=== PATIENT | male | born 1935 | race Caucasian/White ===

== ENCOUNTER 2017-03-08 02:15 | Inpatient (IN) | payer MEDICARE, BC ==
[~2017-03-08] VITALS: Ht 172.7 cm; Wt 80.5 kg
[~2017-03-08 02:15] MED LIST: ALBU90OI6 INH; AMIO200 PO; AMLO5 PO; ASPI81CH; ASPI81CH PO; ATOR10; Amoxicillin500 MG PO; CYCL10 PO; Cephalexin500 MG PO; Cipro500 MG PO; GUAI600T33 PO; HYDACE5 PO; HYDPAM50 PO; HYDR1TAB94 PO; INDO25 PO; Inderal 20 mg T20 MG PO; Ipratr-Albuterol3 ML INH; LAVAP17G PO; LEVO750 PO; LISI20 PO; LOVA20 PO; LOVA40 PO; MED FOR BP; Metoprolol Tart25 MG PO; NITR.4SL SL; NITR.6SL SL; Nitroglycerin0.4 MG SL; OMEP20ER PO; OXYACE5T PO; PANT40 PO; PRED10 PO; PRED20 PO; Prednisone20 MG PO; Roxicodone5 MG PO; SUCR1 PO; Zithromax250 MG PO; Zofran Odt4 MG SL; [UNRECOGNIZED DRUG - REMARK]
[2017-03-08 02:45] LABS: BASOPHILS ABSOLUTE AUTO 0.05 K/mm3 (0.00-0.23); BASOPHILS PERCENT AUTO 0 % (0-2); EOSINOPHILS ABSOLUTE AUTO 0.24 K/mm3 (0.00-0.68); EOSINOPHILS PERCENT AUTO 1 % (0-6); Hematocrit 36.3 % (37.0-53.0); Hemoglobin 11.7 g/dL (13.5-17.5); IMMATURE GRAN ABSOLUTE AUTO 0.06 K/mm3 (0.00-0.10); IMMATURE GRAN PERCENT AUTO 0 % (0-1); LYMPHOCYTES ABSOLUTE AUTO 3.08 K/mm3 (0.84-5.20); LYMPHOCYTES PERCENT AUTO 17 % (21-46); MONOCYTES ABSOLUTE AUTO 0.85 K/mm3 (0.16-1.47); MONOCYTES PERCENT AUTO 5 % (4-13); Mean Corpuscular HGB 28.1 pg (26.0-34.0); Mean Corpuscular HGB Conc 32.2 g/dL (31.5-36.5); Mean Corpuscular Volume 87 fL (80-100); Mean Platelet Volume 10.1 fL (9.1-12.4); NEUTROPHILS ABSOLUTE AUTO 14.24 K/mm3 (1.96-9.15); NEUTROPHILS PERCENT AUTO 77 % (41-73); Platelet Count 324 K/mm3 (150-400); RDW Coefficient Variation 14.9 % (11.7-14.2); RDW Standard Deviation 47.7 fL (35.1-46.3); Red Blood Cell Count 4.17 M/mm3 (4.30-5.90); White Blood Cell Count 18.52 K/mm3 (4.00-11.30)
[2017-03-08 03:06] LABS: Alanine Aminotransfer (ALT/SGP 33 U/L (12-78); Albumin/Globulin Ratio 1.1 (0.8-1.8); Alk Phos 126 U/L (50-136); Anion Gap 8 mmol/L (6-16); Aspartate Aminotrans (AST/SGOT 35 U/L (12-37); Bilirubin, Total 0.3 mg/dL (0.1-1.0); Blood Urea Nitrogen 19 mg/dL (8-24); Bun/Creatinine Ratio 18.8 (12.0-20.0); CO2, Blood 24 mmol/L (21-32); Calcium, Blood 8.7 mg/dL (8.5-10.1); Chloride, Blood 108 mmol/L (98-108); Creatinine, Blood 1.01 mg/dL (0.60-1.20); Globulin, Blood 3.8 g/dL (2.2-4.0); Glomerular Filtration Rate >60 (60-); Glucose, Blood 134 mg/dL (70-99); Potassium, Blood 4.1 mmol/L (3.5-5.5); Sodium, Blood 140 mmol/L (136-145); Total Protein, Blood 7.8 g/dL (6.4-8.2); Troponin I <0.015 ng/mL (0.000-0.040)
[2017-03-08 03:18] LABS: Influenza A Negative (NEGATIVE); Influenza B Negative (NEGATIVE)
[2017-03-08 04:12] LABS: PCO2 Arterial 39.5 mmHg (35-45); PO2 Arterial 71.8 mmHg (80-100); pH Blood Arterial 7.39 (7.35-7.45)
[2017-03-10 05:30] LABS: BASOPHILS ABSOLUTE AUTO 0.01 K/mm3 (0.00-0.23); BASOPHILS PERCENT AUTO 0 % (0-2); EOSINOPHILS ABSOLUTE AUTO 0.01 K/mm3 (0.00-0.68); EOSINOPHILS PERCENT AUTO 0 % (0-6); Hematocrit 30.1 % (37.0-53.0); Hemoglobin 9.8 g/dL (13.5-17.5); IMMATURE GRAN ABSOLUTE AUTO 0.07 K/mm3 (0.00-0.10); IMMATURE GRAN PERCENT AUTO 1 % (0-1); LYMPHOCYTES ABSOLUTE AUTO 2.27 K/mm3 (0.84-5.20); LYMPHOCYTES PERCENT AUTO 15 % (21-46); MONOCYTES ABSOLUTE AUTO 0.88 K/mm3 (0.16-1.47); MONOCYTES PERCENT AUTO 6 % (4-13); Mean Corpuscular HGB Conc 32.6 g/dL (31.5-36.5); Mean Corpuscular Volume 86 fL (80-100); Mean Platelet Volume 10.1 fL (9.1-12.4); NEUTROPHILS ABSOLUTE AUTO 11.47 K/mm3 (1.96-9.15); NEUTROPHILS PERCENT AUTO 78 % (41-73); Platelet Count 259 K/mm3 (150-400); RDW Coefficient Variation 15.2 % (11.7-14.2); RDW Standard Deviation 48.1 fL (35.1-46.3); White Blood Cell Count 14.71 K/mm3 (4.00-11.30)
[2017-03-10 06:10] LABS: Calcium, Blood 8.7 mg/dL (8.5-10.1); Creatinine, Blood 1.25 mg/dL (0.60-1.20); Potassium, Blood 4.2 mmol/L (3.5-5.5)
[2017-03-11 05:24] LABS: BASOPHILS ABSOLUTE AUTO 0.01 K/mm3 (0.00-0.23); BASOPHILS PERCENT AUTO 0 % (0-2); EOSINOPHILS PERCENT AUTO 0 % (0-6); Hematocrit 32.6 % (37.0-53.0); Hemoglobin 10.5 g/dL (13.5-17.5); IMMATURE GRAN ABSOLUTE AUTO 0.08 K/mm3 (0.00-0.10); IMMATURE GRAN PERCENT AUTO 1 % (0-1); LYMPHOCYTES ABSOLUTE AUTO 1.18 K/mm3 (0.84-5.20); LYMPHOCYTES PERCENT AUTO 11 % (21-46); MONOCYTES ABSOLUTE AUTO 0.58 K/mm3 (0.16-1.47); MONOCYTES PERCENT AUTO 5 % (4-13); Mean Corpuscular HGB 27.9 pg (26.0-34.0); Mean Corpuscular HGB Conc 32.2 g/dL (31.5-36.5); Mean Corpuscular Volume 87 fL (80-100); Mean Platelet Volume 10.1 fL (9.1-12.4); NEUTROPHILS ABSOLUTE AUTO 9.09 K/mm3 (1.96-9.15); NEUTROPHILS PERCENT AUTO 83 % (41-73); Platelet Count 280 K/mm3 (150-400); Red Blood Cell Count 3.76 M/mm3 (4.30-5.90); White Blood Cell Count 10.94 K/mm3 (4.00-11.30)
[2017-03-11 05:42] LABS: Anion Gap 9 mmol/L (6-16); Blood Urea Nitrogen 26 mg/dL (8-24); CO2, Blood 24 mmol/L (21-32); Calcium, Blood 8.7 mg/dL (8.5-10.1); Chloride, Blood 105 mmol/L (98-108); Creatinine, Blood 1.18 mg/dL (0.60-1.20); Glomerular Filtration Rate >60 (60-); Glucose, Blood 125 mg/dL (70-99); Potassium, Blood 4.3 mmol/L (3.5-5.5); Sodium, Blood 138 mmol/L (136-145)
[2017-03-13] MEDS ORDERED: Acetaminophen325 M1 PO (12:39)
[2017-03-13] MEDS ORDERED: GUAI600T33 PO (12:40)
[2017-03-13] MEDS ORDERED: Ipratr-Albuterol3 ML INH (12:41)
[2017-03-13] MEDS ORDERED: METO5A PO (12:42)
[2017-03-13] MEDS ORDERED: PRED10 PO (12:46)
[2017-03-13] MEDS ORDERED: GAVILAX17 GM PO (12:47)
[2017-03-13] MEDS ORDERED: LEVO750 PO (12:47)
== END 2017-03-13 14:36 | disposition home or self-care (01) | DRG 871 ==
LOC: ER 02:15 → MEDS 04:57 → ENPENDDIS 03-13 10:21 → MEDS 03-13 14:36
PROVIDERS: Emergency Medicine; Hospitalist
DX: A41.9 Sepsis, unspecified organism (principal); J96.01 Acute respiratory failure with hypoxia; J69.0 Pneumonitis due to inhalation of food and vomit; J44.1 Chronic obstructive pulmonary disease with (acute) exacerbation; K21.9 Gastro-esophageal reflux disease without esophagitis; I10 Essential (primary) hypertension; I25.10 Atherosclerotic heart disease of native coronary artery without angina pectoris; Z79.899 Other long term (current) drug therapy; I25.2 Old myocardial infarction; Z95.1 Presence of aortocoronary bypass graft; Z87.891 Personal history of nicotine dependence
CPT/HCPCS: 36415; 36600; 71045; 80048; 80053; 82803; 83605; 83690; 84484; 85025; 87040; 87070; 87205; 87804; 93005; 93010; 94640; 94644; 94760; 94761; 96365; 96375; 99285; J1650; J1956; J2405; J2550; J2930; J7030

== ENCOUNTER 2017-03-24 19:18 | Emergency (ER) | payer MEDICARE, BC ==
[~2017-03-24] VITALS: Ht 172.7 cm; Wt 86.2 kg
[~2017-03-24 19:18] MED LIST changes: +Acetaminophen325 M1 PO; +GAVILAX17 GM PO; +METO5A PO
[2017-03-24 20:37] LABS: BASOPHILS ABSOLUTE AUTO 0.02 K/mm3 (0.00-0.23); BASOPHILS PERCENT AUTO 0 % (0-2); EOSINOPHILS ABSOLUTE AUTO 0.04 K/mm3 (0.00-0.68); EOSINOPHILS PERCENT AUTO 0 % (0-6); Hematocrit 33.7 % (37.0-53.0); Hemoglobin 10.9 g/dL (13.5-17.5); IMMATURE GRAN ABSOLUTE AUTO 0.05 K/mm3 (0.00-0.10); IMMATURE GRAN PERCENT AUTO 1 % (0-1); LYMPHOCYTES ABSOLUTE AUTO 1.26 K/mm3 (0.84-5.20); LYMPHOCYTES PERCENT AUTO 13 % (21-46); MONOCYTES ABSOLUTE AUTO 1.54 K/mm3 (0.16-1.47); MONOCYTES PERCENT AUTO 16 % (4-13); Mean Corpuscular HGB 27.9 pg (26.0-34.0); Mean Corpuscular HGB Conc 32.3 g/dL (31.5-36.5); Mean Corpuscular Volume 86 fL (80-100); NEUTROPHILS ABSOLUTE AUTO 6.81 K/mm3 (1.96-9.15); NEUTROPHILS PERCENT AUTO 70 % (41-73); RDW Coefficient Variation 15.6 % (11.7-14.2); White Blood Cell Count 9.72 K/mm3 (4.00-11.30)
[2017-03-24 20:39] LABS: Mean Platelet Volume 10.8 fL (9.1-12.4); Platelet Count 219 K/mm3 (150-400)
[2017-03-24 20:40] LABS: International Normalized Ratio 1.03; Prothrombin Time Results 10.7 Sec (9.7-11.5)
[2017-03-24 20:49] LABS: Alanine Aminotransfer (ALT/SGP 26 U/L (12-78); Albumin, Blood 3.6 g/dL (3.4-5.0); Albumin/Globulin Ratio 1.1 (0.8-1.8); Alk Phos 82 U/L (50-136); Anion Gap 7 mmol/L (6-16); Aspartate Aminotrans (AST/SGOT 21 U/L (12-37); Bilirubin, Total 0.3 mg/dL (0.1-1.0); Blood Urea Nitrogen 18 mg/dL (8-24); Bun/Creatinine Ratio 16.7 (12.0-20.0); CO2, Blood 26 mmol/L (21-32); Calcium, Blood 8.7 mg/dL (8.5-10.1); Chloride, Blood 107 mmol/L (98-108); Creatinine, Blood 1.08 mg/dL (0.60-1.20); Globulin, Blood 3.4 g/dL (2.2-4.0); Glomerular Filtration Rate >60 (60-); Glucose, Blood 82 mg/dL (70-99); Potassium, Blood 4.1 mmol/L (3.5-5.5); Sodium, Blood 140 mmol/L (136-145); Troponin I <0.015 ng/mL (0.000-0.040)
[2017-03-25 00:45] LABS: Influenza A Negative (NEGATIVE); Influenza B Negative (NEGATIVE)
== END 2017-03-25 01:24 | disposition home or self-care (01) ==
LOC: ER 19:18
PROVIDERS: Emergency Medicine
DX: R06.02 Shortness of breath (principal); I25.10 Atherosclerotic heart disease of native coronary artery without angina pectoris; J44.9 Chronic obstructive pulmonary disease, unspecified; K21.9 Gastro-esophageal reflux disease without esophagitis; I10 Essential (primary) hypertension; Z79.899 Other long term (current) drug therapy; Z79.52 Long term (current) use of systemic steroids; Z90.49 Acquired absence of other specified parts of digestive tract; Z95.1 Presence of aortocoronary bypass graft; Z87.891 Personal history of nicotine dependence
CPT/HCPCS: 36415; 71046; 80053; 84484; 85025; 85610; 87804; 93005; 93010; 99284

== ENCOUNTER 2017-03-25 09:48 | Observation (INO) | payer MEDICARE, BC ==
[~2017-03-25] VITALS: Ht 172.7 cm; Wt 82.9 kg
[2017-03-25 11:47] LABS: Troponin I <0.015 ng/mL (0.000-0.040)
[2017-03-25 12:09] LABS: BASOPHILS ABSOLUTE AUTO 0.02 K/mm3 (0.00-0.23); BASOPHILS PERCENT AUTO 0 % (0-2); EOSINOPHILS ABSOLUTE AUTO 0.01 K/mm3 (0.00-0.68); EOSINOPHILS PERCENT AUTO 0 % (0-6); Hemoglobin 11.3 g/dL (13.5-17.5); IMMATURE GRAN ABSOLUTE AUTO 0.04 K/mm3 (0.00-0.10); IMMATURE GRAN PERCENT AUTO 1 % (0-1); LYMPHOCYTES ABSOLUTE AUTO 0.97 K/mm3 (0.84-5.20); LYMPHOCYTES PERCENT AUTO 13 % (21-46); MONOCYTES ABSOLUTE AUTO 1.89 K/mm3 (0.16-1.47); MONOCYTES PERCENT AUTO 26 % (4-13); Mean Corpuscular HGB Conc 32.3 g/dL (31.5-36.5); Mean Corpuscular Volume 87 fL (80-100); NEUTROPHILS PERCENT AUTO 60 % (41-73); Platelet Count 240 K/mm3 (150-400); RDW Coefficient Variation 15.6 % (11.7-14.2); RDW Standard Deviation 49.4 fL (35.1-46.3); Red Blood Cell Count 4.03 M/mm3 (4.30-5.90); White Blood Cell Count 7.23 K/mm3 (4.00-11.30)
[2017-03-25 12:17] LABS: Alanine Aminotransfer (ALT/SGP 37 U/L (12-78); Albumin, Blood 3.6 g/dL (3.4-5.0); Alk Phos 85 U/L (50-136); Aspartate Aminotrans (AST/SGOT 30 U/L (12-37); Bilirubin, Total 0.4 mg/dL (0.1-1.0); Blood Urea Nitrogen 17 mg/dL (8-24); Bun/Creatinine Ratio 13.9 (12.0-20.0); CO2, Blood 23 mmol/L (21-32); Creatinine, Blood 1.22 mg/dL (0.60-1.20); Globulin, Blood 3.7 g/dL (2.2-4.0); Glomerular Filtration Rate >60 (60-); Glucose, Blood 79 mg/dL (70-99); Total Protein, Blood 7.3 g/dL (6.4-8.2)
[2017-03-25 12:27] LABS: Anion Gap 11 mmol/L (6-16); Calcium, Blood 8.5 mg/dL (8.5-10.1); Chloride, Blood 105 mmol/L (98-108); Potassium, Blood 4.4 mmol/L (3.5-5.5); Sodium, Blood 139 mmol/L (136-145)
[2017-03-25 13:01] LABS: Influenza A Negative (NEGATIVE); Influenza B Negative (NEGATIVE)
[2017-03-25 13:19] LABS: Source, Urine Voided
[2017-03-25 13:23] LABS: Appearance, Urine Clear (Clear); Bilirubin, Urine Neg (Neg); Blood, Urine Neg (Neg); Color, Urine Yellow (P-Yellow); Glucose Qualitative, Urine Neg (Neg); Ketones, Urine Neg (Neg); Leukocyte Esterase, Urine Neg (Neg); Nitrite, Urine Neg (Neg); Protein, Urine Neg (Neg); Urobilinogen, Urine NORM (Normal)
[2017-03-26 05:45] LABS: Anion Gap 8 mmol/L (6-16); Blood Urea Nitrogen 17 mg/dL (8-24); CO2, Blood 24 mmol/L (21-32); Calcium, Blood 7.6 mg/dL (8.5-10.1); Chloride, Blood 105 mmol/L (98-108); Creatinine, Blood 1.06 mg/dL (0.60-1.20); Glomerular Filtration Rate >60 (60-); Glucose, Blood 80 mg/dL (70-99); Sodium, Blood 137 mmol/L (136-145)
[2017-03-28 05:05] LABS: BASOPHILS PERCENT AUTO 0 % (0-2); EOSINOPHILS PERCENT AUTO 0 % (0-6); Hematocrit 30.4 % (37.0-53.0); Hemoglobin 9.9 g/dL (13.5-17.5); IMMATURE GRAN ABSOLUTE AUTO 0.02 K/mm3 (0.00-0.10); IMMATURE GRAN PERCENT AUTO 0 % (0-1); LYMPHOCYTES ABSOLUTE AUTO 0.87 K/mm3 (0.84-5.20); LYMPHOCYTES PERCENT AUTO 12 % (21-46); MONOCYTES ABSOLUTE AUTO 0.52 K/mm3 (0.16-1.47); MONOCYTES PERCENT AUTO 7 % (4-13); Mean Corpuscular HGB 28.4 pg (26.0-34.0); Mean Corpuscular HGB Conc 32.6 g/dL (31.5-36.5); Mean Corpuscular Volume 87 fL (80-100); Mean Platelet Volume 9.9 fL (9.1-12.4); NEUTROPHILS ABSOLUTE AUTO 5.73 K/mm3 (1.96-9.15); NEUTROPHILS PERCENT AUTO 80 % (41-73); Platelet Count 228 K/mm3 (150-400); RDW Coefficient Variation 15.1 % (11.7-14.2); RDW Standard Deviation 48.3 fL (35.1-46.3); Red Blood Cell Count 3.49 M/mm3 (4.30-5.90); White Blood Cell Count 7.14 K/mm3 (4.00-11.30)
[2017-03-28 05:26] LABS: Anion Gap 8 mmol/L (6-16); Blood Urea Nitrogen 22 mg/dL (8-24); CO2, Blood 25 mmol/L (21-32); Calcium, Blood 8.1 mg/dL (8.5-10.1); Chloride, Blood 102 mmol/L (98-108); Creatinine, Blood 0.96 mg/dL (0.60-1.20); Glomerular Filtration Rate >60 (60-); Glucose, Blood 101 mg/dL (70-99); Potassium, Blood 4.2 mmol/L (3.5-5.5); Sodium, Blood 135 mmol/L (136-145)
[2017-03-28] MEDS ORDERED: BENZ100A PO (09:01)
[2017-03-28] MEDS ORDERED: ACIDOPHILUS1 EAC1 PO (09:02)
[2017-03-28] MEDS ORDERED: OSEL75CA PO (09:02)
[2017-03-28] MEDS ORDERED: QNASL8.7 GM INH (09:04)
[2017-03-28] MEDS ORDERED: AZIT250 PO (09:07)
== END 2017-03-28 11:52 | disposition home or self-care (01) ==
LOC: ER 09:48 → MEDS 09:49 → ENPENDDIS 03-28 07:30 → MEDS 03-28 11:52
PROVIDERS: Emergency Medicine; Internal Medicine
DX: J96.01 Acute respiratory failure with hypoxia (principal); J44.9 Chronic obstructive pulmonary disease, unspecified; R11.2 Nausea with vomiting, unspecified; I25.10 Atherosclerotic heart disease of native coronary artery without angina pectoris; K21.9 Gastro-esophageal reflux disease without esophagitis; I10 Essential (primary) hypertension; B34.9 Viral infection, unspecified; E78.5 Hyperlipidemia, unspecified; I25.2 Old myocardial infarction; K22.2 Esophageal obstruction; Z90.49 Acquired absence of other specified parts of digestive tract; Z98.890 Other specified postprocedural states; Z87.891 Personal history of nicotine dependence; Z79.899 Other long term (current) drug therapy; Z87.01 Personal history of pneumonia (recurrent)
CPT/HCPCS: 36415; 71046; 80048; 80053; 81003; 83605; 83690; 84484; 85025; 87040; 87070; 87205; 87804; 93005; 93010; 94640; 94760; 96361; 96372; 96374; 96376; 99285; G0378; J1650; J2405; J7030; J7120

== ENCOUNTER 2018-03-01 08:37 | Day surgery (SDC) | payer MEDICARE, BC ==
[~2018-03-01] VITALS: Ht 175.3 cm; Wt 83.2 kg
[~2018-03-01 08:37] MED LIST changes: +ACIDOPHILUS1 EAC1 PO; +AZIT250 PO; +Aspirin EC81 MG; +Aspirin EC81 MG PO; +BENZ100A PO; +OSEL75CA PO; +QNASL8.7 GM INH
--- NOTE | 2018-03-01 11:01 | NUR ---
03/01/18 1100 Nita Oscar RN UPDATED PT REGARDING THE DELAY IN HIS CASE. RN OFFERRED ADDITIONAL BLANKETS. CALL LIGHT IN REACH.
== END 2018-03-01 13:29 | disposition home or self-care (01) ==
LOC: ORSCSDS 08:37
PROVIDERS: Internal Medicine Gastroenterology
PROC: 0DB68ZX Excision of Stomach, Via Natural or Artificial Opening Endoscopic, Diagnostic (ICD-10-PCS; principal; 2018-03-01 10:30)
PROC: 0DB58ZX Excision of Esophagus, Via Natural or Artificial Opening Endoscopic, Diagnostic (ICD-10-PCS; principal; 2018-03-01 10:30)
PROC: 0DB98ZX Excision of Duodenum, Via Natural or Artificial Opening Endoscopic, Diagnostic (ICD-10-PCS; principal; 2018-03-01 10:30)
DX: K22.70 Barrett's esophagus without dysplasia (principal); R10.9 Unspecified abdominal pain; Z87.19 Personal history of other diseases of the digestive system; K44.9 Diaphragmatic hernia without obstruction or gangrene; E78.5 Hyperlipidemia, unspecified; R11.0 Nausea; R10.33 Periumbilical pain; Z87.11 Personal history of peptic ulcer disease; Z87.891 Personal history of nicotine dependence; I10 Essential (primary) hypertension; Z79.82 Long term (current) use of aspirin; Z79.899 Other long term (current) drug therapy
CPT/HCPCS: 88305; 88342; J7120

== ENCOUNTER 2018-04-18 09:30 | Inpatient (IN) | payer MEDICARE, BC ==
[~2018-04-18] VITALS: Ht 172.7 cm; Wt 86.6 kg
[2018-04-18 18:26] LABS: BASOPHILS ABSOLUTE AUTO 0.02 K/mm3 (0.00-0.23); BASOPHILS PERCENT AUTO 0 % (0-2); EOSINOPHILS ABSOLUTE AUTO 0.23 K/mm3 (0.00-0.68); EOSINOPHILS PERCENT AUTO 3 % (0-6); Hematocrit 33.6 % (37.0-53.0); Hemoglobin 10.6 g/dL (13.5-17.5); IMMATURE GRAN ABSOLUTE AUTO 0.02 K/mm3 (0.00-0.10); IMMATURE GRAN PERCENT AUTO 0 % (0-1); LYMPHOCYTES PERCENT AUTO 37 % (21-46); MONOCYTES ABSOLUTE AUTO 0.64 K/mm3 (0.16-1.47); MONOCYTES PERCENT AUTO 9 % (4-13); Mean Corpuscular HGB 28.3 pg (26.0-34.0); Mean Corpuscular HGB Conc 31.5 g/dL (31.5-36.5); Mean Corpuscular Volume 90 fL (80-100); NEUTROPHILS ABSOLUTE AUTO 3.61 K/mm3 (1.96-9.15); NEUTROPHILS PERCENT AUTO 51 % (41-73); Platelet Count 260 K/mm3 (150-400); RDW Coefficient Variation 14.7 % (11.7-14.2); Red Blood Cell Count 3.75 M/mm3 (4.30-5.90); White Blood Cell Count 7.12 K/mm3 (4.00-11.30)
[2018-04-18 18:42] LABS: International Normalized Ratio 1.05; Prothrombin Time Results 11.1 Sec (9.7-11.5)
[2018-04-18 18:48] LABS: Alanine Aminotransfer (ALT/SGP 15 U/L (12-78); Albumin, Blood 3.4 g/dL (3.4-5.0); Albumin/Globulin Ratio 1.1 (0.8-1.8); Alk Phos 85 U/L (50-136); Anion Gap 6 mmol/L (6-16); Aspartate Aminotrans (AST/SGOT 11 U/L (12-37); Bilirubin, Total 0.5 mg/dL (0.1-1.0); Blood Urea Nitrogen 15 mg/dL (8-24); Bun/Creatinine Ratio 13.5 (12.0-20.0); CO2, Blood 25 mmol/L (21-32); Calcium, Blood 7.9 mg/dL (8.5-10.1); Chloride, Blood 109 mmol/L (98-108); Creatinine, Blood 1.11 mg/dL (0.60-1.20); Glomerular Filtration Rate >60 (60-); Glucose, Blood 78 mg/dL (70-99); Potassium, Blood 4.4 mmol/L (3.5-5.5); Sodium, Blood 140 mmol/L (136-145); Total Protein, Blood 6.4 g/dL (6.4-8.2)
--- NOTE | 2018-04-18 19:15 | NUR ---
ASSUMED PT CARE; BEDSIDE REPORT GIVEN PT LYING SUPINE IN BED WITH ALL EXTREMITIES IN ALIGNMENT. ASSESSED LEFT BRACHIAL SITE; FLO DRESSING NOTED WITH MINIMAL SEROSANGUINEOUS DRAINAGE; NO HEMATOMA NOTED, NO BLEEDING, SWELLING, REDNESS, OOZING OR TENDERNESS NOTED AROUND SITE; FOREARM IMMOBILIZER IN PLACE. ASSESSED RIGHT FEMORAL SITE WITH TEGADERM CHG INTACT WITH NO SIGNS OF HEMATOMA, BLEEDING, REDNESS, SWELLING, OOZING OR TENDERNESS AROUND SITE. BILATERAL PEDAL PULSES ARE PALPABLE, BUT FAINT. LEFT RADIAL PULSE IS PALPABLE, BUT FAINT. OXYGEN PROBE IS INTACT TO LEFT INDEX FINGER; WITH READINGS GREATER THAN 95%. PT C/O LOWER BACK PAIN D/T LYING FLAT. STATES IT IS JUST A DULL/ACHING PAIN; ACUTE IN NATURE. INFORMED PT I WOULD GO OBTAIN ORDERED PRN MEDICATION TO HELP WITH THE PAIN. NG TUBE HOOKED TO LOW INTERMITTENT SUCTION WITH MINIMAL AMOUNTS OF COFFEE GROUND CONTENTS NOTED TO SUCTION CANNISTER. PT DENIES ANY NAUSEA/VOMITING AT THIS TIME.
--- NOTE | 2018-04-18 19:27 | NUR ---
PT WAS RECIEVED AT 1745, VSS, NO RESP. DISTRESS, 2L STARTED, VS NOTED AND STABLE. NS TO FOLLOW PER V.O. AT 100ML FOR NOW. DR MORRIS THEN ORDERED NG PLACEMENT WITH OLD COFFEE GROUNDS RETURN IN SMALL APPROX 50ML RETURNED AND STOMACH DECOMPRESSED AND FELT BETTER. PT ABLE TO VOID. EXT ARE COOL X4 WITH FAINT FEET PULSES AND STRONG RADIAL BILATERALLY.. L BRACHIAL AND R GROIN SITES STABLE. PT TOLERATED NG PLACEMENT AND MINIMAL DISTRESS. VOIDED X1
[2018-04-18 19:56] LABS: Magnesium, Blood 1.7 mg/dL (1.6-2.4); Phosphorus, Blood 2.6 mg/dL (2.5-4.9); Troponin I 0.064 ng/mL (0.000-0.040)
--- NOTE | 2018-04-18 23:39 | NUR ---
BEDREST PRECAUTIONS UPLIFTED AT 2330 PER POST SHEATH REMOVAL PROTOCOL. PT IS RELIEVED TO BE ABLE TO CHANGE POSITIONS. STILL PREFERS TO BE IN HIS BACK AT THIS TIME, BUT GRATEFUL TO BE ABLE TO SHIFT WEIGHT MORE READILY.
[2018-04-19 04:00] LABS: BASOPHILS ABSOLUTE AUTO 0.02 K/mm3 (0.00-0.23); BASOPHILS PERCENT AUTO 0 % (0-2); EOSINOPHILS ABSOLUTE AUTO 0.04 K/mm3 (0.00-0.68); EOSINOPHILS PERCENT AUTO 0 % (0-6); Hematocrit 30.9 % (37.0-53.0); Hemoglobin 9.8 g/dL (13.5-17.5); IMMATURE GRAN ABSOLUTE AUTO 0.03 K/mm3 (0.00-0.10); IMMATURE GRAN PERCENT AUTO 0 % (0-1); LYMPHOCYTES ABSOLUTE AUTO 1.55 K/mm3 (0.84-5.20); LYMPHOCYTES PERCENT AUTO 15 % (21-46); MONOCYTES ABSOLUTE AUTO 0.72 K/mm3 (0.16-1.47); MONOCYTES PERCENT AUTO 7 % (4-13); Mean Corpuscular HGB 29.1 pg (26.0-34.0); Mean Corpuscular HGB Conc 31.7 g/dL (31.5-36.5); Mean Corpuscular Volume 92 fL (80-100); Mean Platelet Volume 10.5 fL (9.1-12.4); NEUTROPHILS ABSOLUTE AUTO 8.07 K/mm3 (1.96-9.15); NEUTROPHILS PERCENT AUTO 77 % (41-73); Platelet Count 247 K/mm3 (150-400); RDW Coefficient Variation 14.6 % (11.7-14.2); RDW Standard Deviation 49.5 fL (35.1-46.3); Red Blood Cell Count 3.37 M/mm3 (4.30-5.90); White Blood Cell Count 10.43 K/mm3 (4.00-11.30)
[2018-04-19 04:24] LABS: Alanine Aminotransfer (ALT/SGP 14 U/L (12-78); Albumin, Blood 3.1 g/dL (3.4-5.0); Albumin/Globulin Ratio 1.1 (0.8-1.8); Alk Phos 76 U/L (50-136); Anion Gap 10 mmol/L (6-16); Aspartate Aminotrans (AST/SGOT 10 U/L (12-37); Bilirubin, Total 0.7 mg/dL (0.1-1.0); Blood Urea Nitrogen 13 mg/dL (8-24); Bun/Creatinine Ratio 11.5 (12.0-20.0); CO2, Blood 24 mmol/L (21-32); Calcium, Blood 7.7 mg/dL (8.5-10.1); Chloride, Blood 111 mmol/L (98-108); Creatinine, Blood 1.13 mg/dL (0.60-1.20); Globulin, Blood 2.7 g/dL (2.2-4.0); Glomerular Filtration Rate >60 (60-); Glucose, Blood 87 mg/dL (70-99); Magnesium, Blood 1.7 mg/dL (1.6-2.4); Phosphorus, Blood 2.5 mg/dL (2.5-4.9); Potassium, Blood 4.1 mmol/L (3.5-5.5); Sodium, Blood 145 mmol/L (136-145); Total Protein, Blood 5.8 g/dL (6.4-8.2)
--- NOTE | 2018-04-19 05:56 | NUR ---
END OF SHIFT SUMMARY PT REMAINS ALERT AND ORIENTED; PLEASANT AND COOPERATIVE WITH CARE. ABLE TO MAKE NEEDS KNOWN. CALL LIGHT IN REACH. BED REST PRECAUTIONS WERE LIFTED AT 2330; SINCE THEN PT HAS BEEN INDEPENDENT WITH REPOSITIONING. ABLE TO CALL TO USE THE RESTROOM. STEADY ON FEET. PT WAS TOILETED TWICE THIS SHIFT WITH NO SIGNS OF HEMATOMA, BLEEDING, OOZING, SWELLING, REDNESS, AND/OR TENDERNESS AT BOTH LEFT BRACHIAL AND RIGHT FEMORAL SITES. NO C/O PAIN SINCE BED REST PRECAUTIONS WERE LIFTED. PT HAD A COUPLE EPISODES OF NAUSEA; MEDICATED WITH BOTH ZOFRAN AND PHENERGAN; APPEARED MORE EFFECTIVE AFTER PHENERGAN WAS ADMINISTERED. PT STATES HE IS "THROWING UP" AND THEN SUCTIONING WHAT IS IN HIS MOUTH; TOTAL OF 100CC CLEARED FROM SUCTION CANNISTER OF PT'S EMESIS; DARK BROWN IN COLOR. PT ALSO HAD CONTINUOUS LOW SUCTION GOING TO KEEP STOMACH DECOMPRESSED WITH A TOTAL OF 250CC COLLECTED FROM CANNISTER; DARK, BROWN COFFEE GROUND NOTED TO CANNISTER. PT APPEARS COMFORTABLE AT THIS TIME. CALL LIGHT IS WITHIN REACH. BELONGINGS RETURNED FROM [facility] AND ARE IN PATIENT'S ROOM.
--- NOTE | 2018-04-19 08:19 | NUR ---
CARE ASSUMED CARE AND REPORT ASSUMED FROM BATSHEVA BAUTISTA. PT SLEEPING BUT EASILY AROUSABLE. REQESTING TO SLEEP LONGER. DENIES PAIN THIS AM. DENIES NAUSEA. NGT SECURED AND ATTACHED TO LOW INTERMITTENT CONTINUOUS SUCTION. MINIMAL GI OUTPUT AT THIS TIME. PT JUST FINISHED RECIEVING BREATHING TREATMENT. CURRENTLY HAS EXP WHEEZES IN ALL LUNG OBRIEN. SPO2 98% ON 2L NC. NS MIV INFUSING AT 125 ML/HR PER ORDER. L ARM BRACHIAL INSERTION SITE DRESSING IS CLEAN, DRY AND INTACT. L ARM SECURED IN ARMBOARD FROM SHOULDER TO WRIST. R GROIN ACCESS SITE DRESSING IS CLEAN, DRY AND INTACT. PT DOES HAVE TENDERNESS TO PALPATION OVER R GROIN SITE. NO ECCHYMOSIS, ERYTHEMA, OR EDEMA OVER GROIN, ABDOMEN, OR INGUINAL AREA. PT DENIES ABDOMINAL PAIN AND DENIES NAUSEA AT THIS TIME. MD NAZARIO BEDSIDE FOR EXAM AT 0800; DISCUSSED AM PO PILLS WITH HER AND SHE STATES MED ORDERS WILL BE CHANGED. WILL CONTINUE TO MONITOR.
--- NOTE | 2018-04-19 08:40 | NUR ---
HAZEL PALMER. CLEARED TO REMOVED ARMBOARD.
[2018-04-19 09:02] LABS: Percent Saturation 25.6 % (20.0-50.0)
--- NOTE | 2018-04-19 09:22 | NUR ---
Assumed care from Kamryn RN, went into room and assesed sites from [facility] and both WNL's and /D/I, introduced self and stated plan of care for the day. Patient self suctions useing yankaur for oral secretions. Family at bedside.
--- NOTE | 2018-04-19 11:30 | NUR ---
Patient continues to rest. Patient called and wanted to use urinal. Place new bag NS at 125ml/hr. Left brachial and right groin sites C/D/I and no swelling or oozing. Patient denies ant current needs or intervention for mild pain. Call light with in reach. TR giving breathing treatment.
--- NOTE | 2018-04-19 13:30 | NUR ---
Patient resting in bed. VSS no significant changes with patient. He states he is thirsty and gave wet swabs to moisten mouth. He is awaiting for EGD around 1700.
--- NOTE | 2018-04-19 15:30 | NUR ---
Patient resting and uses urinal appropriately. Cath site remains C/D/I and WNL's.
--- NOTE | 2018-04-19 17:28 | NUR ---
04/19/[address] HERE TO PROVIDE ANESTHESIA CARE, PLEASE SEE ANESTHESIA RECORD FOR DETAILS. History, Chart, Medications and Allergies reviewed before start of procedure. MONITOR INTACT WITH CONTINUOUS PULSE OXIMETRY AND INTERMITTENT BP. O2 VIA N/C INTACT THROUGHOUT SEDATION/PROCEDURE, VIA POM AT 10 L/MIN. PATIENT CONFIRMS NPO STATUS AND AGREES WITH SCHEDULED PROCEDURE.
--- NOTE | 2018-04-19 17:49 | NUR ---
Patient has EGD started at 1725 and finished 1736 and recovered currently. patient sleep. Dr Pino stated normal EGD and tried to call Dr Howard to advise results. Per Dr. Pino he can resume regular diet. Patient sleeping with MAP >60, RR16 sats 100% 10L O2 venti mask.
--- NOTE | 2018-04-19 19:30 | NUR ---
ASSUMED PT CARE AT 1900; BEDSIDE REPORT GIVEN PT SITTING UPRIGHT IN BED WITH MEAL TRAY IN FRONT OF HIM. PT ASKED IF I COULD REMOVE HIS TRAY HIS STOMACH WAS VERY UPSET AND HE FELT NAUSEAS. PT CLAIMS HE HASN'T EATEN OR HAD AN APPETITE IN QUITE A FEW DAYS. OFFERED PT SOME JELLY AND PUDDING INSTEAD; STATED HE WOULD TRY IT. ADMINISTERED PRN ZOFRAN IV AT 1915. BROUGHT JELLY AND PUDDING TO BEDSIDE. PT TOOK TWO BITES OF JELLY AND IMMEDIATELY VOMITED. AFEBRILE 98.7. PT STATES HE IS VERY COLD. WARM BLANKETS PROVIDED.
--- NOTE | 2018-04-19 20:00 | NUR ---
PT HAS HAD CONTINUAL EPISODES OF EMESIS REGARDLESS OF ZOFRAN AND PHENERGAN ADMINISTRATIONS. PT WAS NOTED TO BE TILTING HIS HEAD BACK HE WOULD START TO DRY HEAVE TO VOMIT. HE WOULD THEN USE THE YONKER TO SUCTION THE VOMIT OUT OF HIS MOUTH. REGARDLESS OF EFFORTS TO EDUCATE PT TO TILT HIS HEAD FORWARD TO VOMIT INTO BUCKET/BAG IN ORDER TO PREVENT ASPIRATION; PT PREFERRED YONKER AND CONTINUED TO TILT HIS HEAD BACK WHILE AT THE BEGINNING OF EMESIS EPISODES. PT HAS COMPAZINE FOR N/V AVAILABLE WELL. WILL ATTEMPT FIRST BEFORE CALLING PHYSICIAN.
--- NOTE | 2018-04-19 20:25 | NUR ---
PLACED CALL TO JASON AMADO SECONDARY TO PT TEMPERATURE ELEVATED TO 100.4. REST OF VITAL APPEAR STABLE, HOWEVER, PT IS VERY SOB; USING ACCESSORY MUSCLES TO BREATHE D/T CONSTANT N/V WITH NO RELIEF FROM MEDICATIONS. PT WEARING 5L OXYGEN VIA OXYMIZER. NEW ORDERS FROM ANEUDY TO ADMINISTER REGLAN 5MG IV NOW THEN Q6HRS PRN. NO NEW ORDERS FOR FEVER; JUST TO MONITOR AND UPDATE HIM IF THE TEMP GETS ABOVE 101.
--- NOTE | 2018-04-19 22:35 | NUR ---
SPOKE WITH ACCORDION MAKER ANEUDY REGARDING ELEVATED TEMPERATURE FROM 100.4 TO 102.1. STATED HE WOULD BE BY TO ASSESS THE SITUATION. PT CONTINUES WITH NAUSEA AND EMESIS. ZOFRAN, PHENERGAN, COMPAZINE, AND REGLAN HAVE ALL BEEN UNEFFECTIVE FOR PT.
--- NOTE | 2018-04-19 23:55 | NUR ---
JASON AMADO AT BEDSIDE TO ASSESS PT
--- NOTE | 2018-04-20 00:07 | NUR ---
JASON AMADO PLACED NEW ORDERS FOR BLOOD CULTURES, RESP PANEL, TYLENOL SUPPOSITORY; AND ZOSYN AFTER BLOOD CULTURES AND LACTIC ACID LABS HAVE BEEN COLLECTED.
[2018-04-20 00:34] LABS: Hematocrit 31.7 % (37.0-53.0); Hemoglobin 10.4 g/dL (13.5-17.5); Mean Corpuscular HGB 29.6 pg (26.0-34.0); Mean Corpuscular HGB Conc 32.8 g/dL (31.5-36.5); Mean Corpuscular Volume 90 fL (80-100); Platelet Count 231 K/mm3 (150-400); RDW Coefficient Variation 14.7 % (11.7-14.2); RDW Standard Deviation 48.8 fL (35.1-46.3); Red Blood Cell Count 3.51 M/mm3 (4.30-5.90); White Blood Cell Count 15.94 K/mm3 (4.00-11.30)
[2018-04-20 00:53] LABS: Alanine Aminotransfer (ALT/SGP 16 U/L (12-78); Albumin, Blood 3.1 g/dL (3.4-5.0); Alk Phos 80 U/L (50-136); Anion Gap 11 mmol/L (6-16); Aspartate Aminotrans (AST/SGOT 17 U/L (12-37); Bilirubin, Total 0.8 mg/dL (0.1-1.0); Blood Urea Nitrogen 12 mg/dL (8-24); Bun/Creatinine Ratio 10.6 (12.0-20.0); CO2, Blood 21 mmol/L (21-32); Calcium, Blood 7.9 mg/dL (8.5-10.1); Chloride, Blood 113 mmol/L (98-108); Creatinine, Blood 1.13 mg/dL (0.60-1.20); Glomerular Filtration Rate >60 (60-); Glucose, Blood 103 mg/dL (70-99); Potassium, Blood 3.8 mmol/L (3.5-5.5); Sodium, Blood 145 mmol/L (136-145); Total Protein, Blood 6.1 g/dL (6.4-8.2)
[2018-04-20 01:01] LABS: BAND PERCENT MAN 12 % (0-8); BASOPHILS PERCENT MAN 0 % (0-2); EOSINOPHILS PERCENT MAN 0 % (0-6); LYMPHOCYTES ABSOLUTE MAN 0.47 K/mm3 (0.84-5.20); LYMPHOCYTES PERCENT MAN 3 % (21-46); MONOCYTES ABSOLUTE MAN 0.15 K/mm3 (0.16-1.47); MONOCYTES PERCENT MAN 1 % (4-13); SEG NEUTROPHILS PERCENT MAN 84 % (41-73); TOTAL CELLS COUNTED 100
[2018-04-20 01:51] LABS: Adenovirus Not Detected (NOT DETECT); Bordetella pertussis Not Detected (NOT DETECT); Chlamydophila pneumoniae Not Detected (NOT DETECT); Coronavirus 229E Not Detected (NOT DETECT); Coronavirus HKU1 Not Detected (NOT DETECT); Coronavirus NL63 Not Detected (NOT DETECT); Coronavirus OC43 Not Detected (NOT DETECT); Human Metapneumovirus Not Detected (NOT DETECT); Human Rhinovirus/Enterovirus Not Detected (NOT DETECT); Influenza A Not Detected (NOT DETECT); Influenza A/2009-H1 Not Detected (NOT DETECT); Influenza A/H1 Not Detected (NOT DETECT); Influenza A/H3 Not Detected (NOT DETECT); Influenza B Not Detected (NOT DETECT); Mycoplasma pneumoniae Not Detected (NOT DETECT); Parainfluenza Virus 1 Not Detected (NOT DETECT); Parainfluenza Virus 2 Not Detected (NOT DETECT); Parainfluenza Virus 3 Not Detected (NOT DETECT); Parainfluenza Virus 4 Not Detected (NOT DETECT); Respiratory Syncytial Virus Not Detected (NOT DETECT)
--- NOTE | 2018-04-20 05:45 | NUR ---
END OF SHIFT SUMMARY PT HASN'T HAD AN EPISODE OF EMESIS SINCE 2329. PT HAS BEEN VERY FATIGUED FROM SHIVERING, RUNNING A FEVER, AND EMESIS FOR A FEW HOURS STRAIGHT; THEREFORE, PT HAS BEEN SLEEPING HARD SINCE ABOUT MIDNIGHT. EASY TO AROUSE, BUT PT VERBALIZES HOW EXHAUSTED HE IS. APPEARS TO BE SLIGHTLY SWEATY ACROSS FORHEAD; TEMPERATURE DECREASED TO 99.4. PT RECEIVED FIRST DOSE OF ABO, ZOSYN. LACTIC ACID DECREASED FROM 2.4 TO 1.4. APPEARS TO OVERALL BEING DOING BETTER THAN BEGINNING OF SHIFT. HOWEVER, PT STILL VERBALIZES HE DOESN'T FEEL WELL; ENCOURAGED PT TO GET MORE REST. CALL LIGHT IN REACH. UA WITH C&S STILL NEEDS OBTAINED, BUT PT UNABLE TO VOID AT TIME OF REQUEST.
[2018-04-20 08:16] LABS: Source, Urine Voided
[2018-04-20 08:27] LABS: Appearance, Urine Clear (Clear); Bilirubin, Urine Neg (Neg); Blood, Urine 5+ (Neg); Color, Urine Yellow (P-Yellow); Glucose Qualitative, Urine Neg (Neg); Ketones, Urine 2+ (Neg); Leukocyte Esterase, Urine Neg (Neg); Nitrite, Urine Neg (Neg); Protein, Urine 1+ (Neg); Urobilinogen, Urine NORM (Normal)
[2018-04-20 08:37] LABS: Red Blood Cells, Urine 25-50 /hpf (0-2)
[2018-04-20 08:38] LABS: Bacteria Few /hpf; Squamous Epithelial Cells Rare /hpf (Few)
--- NOTE | 2018-04-20 10:50 | NUR ---
Assumed Care: Assumed care of pt at approx 0700. VSS. In no apparent sign of distress. Pt has remained A&Ox4. Calls appropriately and repositions self. Denies any pain. Denies any n/v, n/t, abd tenderness, hemoptysis, or bloody stools recently. See shift assessment for detailed assessment. Pt titrated down from 5L O2 oxymizer this AM to 3L and is tolerated well. Pt currently resting in bed with call light within reach. Pt afebrile this AM. Currently resting in bed with call light within reach. Denies any further questions, complaints or reqeusts at this time. Will continue to monitor.
--- NOTE | 2018-04-20 13:23 | NUR ---
Pt.is in bed and talking to his visitor in the room, pt.reports doing well encouraged pt and ooffered some prayers
--- NOTE | 2018-04-20 16:47 | NUR ---
Shift Summary No acute changes since initial shift assessment. VSS. In no apparent sign of distress. Pt is A&Ox4. Calls appropriately and repositions self. Transferred to PCU at approx 1600. Denies any pain. Pt tolerated shower today. Titrated down to 2L o2 NC. No acute changes or events on heart monitor. Pt currently sitting up in chair with call light within reach. Denies any further questions, complaints or requests at this time. Will continue to monitor until report is given to tuan BAUTISTA.
[2018-04-21 04:01] LABS: BASOPHILS ABSOLUTE AUTO 0.03 K/mm3 (0.00-0.23); BASOPHILS PERCENT AUTO 0 % (0-2); EOSINOPHILS ABSOLUTE AUTO 0.12 K/mm3 (0.00-0.68); EOSINOPHILS PERCENT AUTO 1 % (0-6); Hematocrit 27.2 % (37.0-53.0); Hemoglobin 8.8 g/dL (13.5-17.5); IMMATURE GRAN ABSOLUTE AUTO 0.15 K/mm3 (0.00-0.10); IMMATURE GRAN PERCENT AUTO 1 % (0-1); LYMPHOCYTES ABSOLUTE AUTO 1.26 K/mm3 (0.84-5.20); LYMPHOCYTES PERCENT AUTO 7 % (21-46); MONOCYTES ABSOLUTE AUTO 0.99 K/mm3 (0.16-1.47); MONOCYTES PERCENT AUTO 6 % (4-13); Mean Corpuscular HGB 28.9 pg (26.0-34.0); Mean Corpuscular HGB Conc 32.4 g/dL (31.5-36.5); Mean Corpuscular Volume 89 fL (80-100); Mean Platelet Volume 10.6 fL (9.1-12.4); NEUTROPHILS ABSOLUTE AUTO 14.72 K/mm3 (1.96-9.15); NEUTROPHILS PERCENT AUTO 85 % (41-73); Platelet Count 217 K/mm3 (150-400); RDW Coefficient Variation 15.1 % (11.7-14.2); RDW Standard Deviation 49.7 fL (35.1-46.3); Red Blood Cell Count 3.05 M/mm3 (4.30-5.90); White Blood Cell Count 17.27 K/mm3 (4.00-11.30)
[2018-04-21 04:19] LABS: Alanine Aminotransfer (ALT/SGP 25 U/L (12-78); Albumin, Blood 2.6 g/dL (3.4-5.0); Albumin/Globulin Ratio 0.9 (0.8-1.8); Alk Phos 64 U/L (50-136); Anion Gap 9 mmol/L (6-16); Aspartate Aminotrans (AST/SGOT 71 U/L (12-37); Bilirubin, Total 0.8 mg/dL (0.1-1.0); Blood Urea Nitrogen 17 mg/dL (8-24); Bun/Creatinine Ratio 14.8 (12.0-20.0); CO2, Blood 23 mmol/L (21-32); Calcium, Blood 7.8 mg/dL (8.5-10.1); Chloride, Blood 115 mmol/L (98-108); Creatinine, Blood 1.15 mg/dL (0.60-1.20); Globulin, Blood 2.9 g/dL (2.2-4.0); Glomerular Filtration Rate >60 (60-); Glucose, Blood 90 mg/dL (70-99); Potassium, Blood 3.8 mmol/L (3.5-5.5); Sodium, Blood 147 mmol/L (136-145); Total Protein, Blood 5.5 g/dL (6.4-8.2)
--- NOTE | 2018-04-21 04:44 | NUR ---
SHIFT SUMMARY PT A&O X4. PT DENIES PAIN, N&V. VSS. LUNG SOUNDS DIM T/O. SPO2 > 92% ON 2L NC. MONITOR SHOWS NSR, HR 60'S-70'S. R GROIN AND L BRACHIAL SITES WNL, NO BLEEDING, NO HEMATOMA, DRESSINGS COVERING BOTH SITES. WILL CONTINUE TO MONITOR AND PROVIDE CARE UNTIL REPORT OFF TO DAY SHIFT RN.
--- NOTE | 2018-04-21 09:52 | NUR ---
Assumed Care: Assumed care of pt at approx 0700. VSS. In no apparent sign of distress. Pt is A&Ox4. Calls appropriately and repositions self. Denies any pain but c/o very mild R ear ache this AM. Denies any acute complaints or events t/o the night. See shift assessment for detailed assessment. Dr. Denis at bedside this AM and plan is to transfer to medical floor today when bed is available. Pt currently resting in bed with call light within reach. Denies any further questions, complaints or requests at this time. Will continue to [facility].
--- NOTE | 2018-04-21 16:23 | NUR ---
Shift Summary/Transfer: Pt transferred to room 332 right now. No acute changes since initial shift assessment. VSS. In no apparent sign of distress. Pt has remained A&Ox4. Pt removed O2 at start of shift and has been tolerating room air well today. No acute events prior to being removed from tele. Pt has denied any acute events or complaints t/o the shift. Medicated once for low grade temp per pt request for pt comfort d/t feeling so cold and pt reported that this intervention helped significantly. Transferred via wheel chair. Denies any furthe questions, complaints or requests at time of transfer. Report called to receiving RN.
--- NOTE | 2018-04-21 18:40 | NUR ---
PT ARRIVED TO THE UNIT AT 1630 IN A WHEELCHAIR. HE CAN TRANSFER FROM WHEELCAHIR TO BED. HE HAS A URINAL AT THE BEDSIDE. HE IS A SBA TO THE BATHROOM. NO ACUTE CHANGES TODAY, WILL CONTINUE TO MONITOR.
[2018-04-22 05:27] LABS: BASOPHILS ABSOLUTE AUTO 0.03 K/mm3 (0.00-0.23); BASOPHILS PERCENT AUTO 0 % (0-2); EOSINOPHILS ABSOLUTE AUTO 0.44 K/mm3 (0.00-0.68); EOSINOPHILS PERCENT AUTO 4 % (0-6); Hematocrit 26.5 % (37.0-53.0); Hemoglobin 8.6 g/dL (13.5-17.5); IMMATURE GRAN ABSOLUTE AUTO 0.04 K/mm3 (0.00-0.10); IMMATURE GRAN PERCENT AUTO 0 % (0-1); LYMPHOCYTES ABSOLUTE AUTO 1.46 K/mm3 (0.84-5.20); LYMPHOCYTES PERCENT AUTO 14 % (21-46); MONOCYTES ABSOLUTE AUTO 0.69 K/mm3 (0.16-1.47); MONOCYTES PERCENT AUTO 6 % (4-13); Mean Corpuscular HGB 29.4 pg (26.0-34.0); Mean Corpuscular HGB Conc 32.5 g/dL (31.5-36.5); Mean Corpuscular Volume 90 fL (80-100); Mean Platelet Volume 10.5 fL (9.1-12.4); NEUTROPHILS ABSOLUTE AUTO 8.04 K/mm3 (1.96-9.15); NEUTROPHILS PERCENT AUTO 75 % (41-73); Platelet Count 221 K/mm3 (150-400); Red Blood Cell Count 2.93 M/mm3 (4.30-5.90)
--- NOTE | 2018-04-22 05:53 | NUR ---
SHIFT SUMMARY PT HAD UNEVENTFUL NIGHT. PT DID EARLY IN SHIFT REPORT FEELING "FEVERISH". TEMP 99.0 DEG F. MEDICATED W/ 650 MG TYLENOL. OTHERWISE NO COMPLAINTS OF PAIN OR NAUSEA. PT SLEPT WELL THROUGH MUCH OF THE NIGHT. VSS. WILL CONTINUE TO MONITOR AND REPORT TO DAY RN.
--- NOTE | 2018-04-22 11:19 | NUR ---
PT REPORTED PAIN IN HIS RIGHT EAR WHEN SITTING UP IN BED THIS MORNING. HE STATES THE PAIN WOULD DISSAPEAR WITH REPOSITING. HE ALSO REPORTED A GENERAL FEELING OF MALAISE. HE HAD AN INCREASE IN TEMPERATURE TO 100.3 DEGREES, TREATED WITH TYLENOL PER EMAR WHICH RESULTED IN A DECREASE TO 98.4 DEGREES. HE COMPLAINS OF HAVING A SLEEPLESS NIGHT LAST NIGHT. DR. NAZARIO SAW THIS PATIENT THIS MORNING AND SPOKE WITH THE RN. SHE PLANS TO KEEP HIM TODAY AND CONTINUE ANTIBIOTICS. WILL CONTINUE TO MONITOR.
--- NOTE | 2018-04-22 17:46 | NUR ---
PT IS ALERT AND ORIENTED. HE HAD DIALYSIS TODAY. HE HAD AN XRAY OF HIS ABDOMEN THIS MORNING. HE WORKED WITH PHYSICAL THERAPY TODAY, HE HAS A GOAL OF SITTING ON THE SIDE OF THE BED [address] ANDUJAR ORDERED A ONE TIME STRAIGHT CATH BUT THE PT HAS WANTED TO WAIT UNTIL LATER TONIGHT TO EMPTY HIS BLADDER. HIS BLADDER SCAN SHOWED 567 ML. HE HAS COMPLAINED OF RECTAL PAIN TODAY, AND MEDICATED PER EMAR. HIS LAST DOSE OF FENTANYL 50 MCG WAS AT 1719. HE HAS HIS HOME BIPAP HERE. HE HAS BEEN SEEN BY RT, RECIEVING BREATHING TREATMENTS Q4H. THE WOUND ON HIS RIGHT BUTTOCKS HAS A CLEAN DRESSING ON TOP OF IT, CHANGED NEEDED. WILL CONTINUE TO MONITOR.
--- NOTE | 2018-04-22 17:54 | NUR ---
PT COMPLAINED OF FEEL HOT AND UNDER THE WEATHER THIS MORNING. THE TEMPERATURE IN HIS ROOM WAS DECREASED AND TYLENOL WAS ADMINISTERED PER EMAR. DR. NAZARIO WAS TOLD OF THE PATIENT'S COMPLAINTS. SHE PLANS TO KEEP HIM TO FINISH HIS ANTIBIOTICS. HE IS INDEPENDENT IN HIS ROOM AND GOING TO THE BATHROOM. HE HAS SCD'S IN PLACE. NO ACUTE CHANGES, WILL CONTINUE TO MONITOR.
--- NOTE | 2018-04-23 04:14 | NUR ---
SHIFT SUMMARY PT HAD DIFFICULT TIME SLEEPING THIS EVENING. AWAKE LATE, PT REPORTED HE FELT "STIR CRAZY" AND WAS HOPEFUL TO RETURN HOME SOON. PT REPORTED FEELING "FEVERISH" AT START OF SHIFT AND WAS MILDLY FEBRILE WITH TEMP OF 99.7 DEG F BUT HAD RECIEVED TYLENOL JUST BEFORE SHIFT CHANGE. MEDICATED W/ TYLENOL WHEN AVAILABLE. PT AFEBRILE THIS AM. OTHERWISE NO ACUTE CHANGES. VSS. WILL CONTINUE TO MONITOR AND REPORT TO DAY RN.
[2018-04-23 05:24] LABS: BASOPHILS ABSOLUTE AUTO 0.03 K/mm3 (0.00-0.23); BASOPHILS PERCENT AUTO 0 % (0-2); EOSINOPHILS ABSOLUTE AUTO 0.51 K/mm3 (0.00-0.68); EOSINOPHILS PERCENT AUTO 7 % (0-6); Hematocrit 26.1 % (37.0-53.0); Hemoglobin 8.5 g/dL (13.5-17.5); IMMATURE GRAN ABSOLUTE AUTO 0.03 K/mm3 (0.00-0.10); IMMATURE GRAN PERCENT AUTO 0 % (0-1); LYMPHOCYTES PERCENT AUTO 21 % (21-46); MONOCYTES ABSOLUTE AUTO 0.44 K/mm3 (0.16-1.47); MONOCYTES PERCENT AUTO 6 % (4-13); Mean Corpuscular HGB 28.5 pg (26.0-34.0); Mean Corpuscular HGB Conc 32.6 g/dL (31.5-36.5); Mean Corpuscular Volume 88 fL (80-100); Mean Platelet Volume 10.2 fL (9.1-12.4); NEUTROPHILS ABSOLUTE AUTO 4.56 K/mm3 (1.96-9.15); NEUTROPHILS PERCENT AUTO 65 % (41-73); Platelet Count 252 K/mm3 (150-400); RDW Standard Deviation 48.2 fL (35.1-46.3); Red Blood Cell Count 2.98 M/mm3 (4.30-5.90); White Blood Cell Count 7.07 K/mm3 (4.00-11.30)
[2018-04-23 06:05] LABS: Alanine Aminotransfer (ALT/SGP 22 U/L (12-78); Albumin, Blood 2.4 g/dL (3.4-5.0); Albumin/Globulin Ratio 0.8 (0.8-1.8); Alk Phos 66 U/L (50-136); Anion Gap 11 mmol/L (6-16); Aspartate Aminotrans (AST/SGOT 29 U/L (12-37); Bilirubin, Total 0.7 mg/dL (0.1-1.0); Blood Urea Nitrogen 11 mg/dL (8-24); Bun/Creatinine Ratio 11.4 (12.0-20.0); CO2, Blood 21 mmol/L (21-32); Calcium, Blood 7.9 mg/dL (8.5-10.1); Chloride, Blood 113 mmol/L (98-108); Creatinine, Blood 0.97 mg/dL (0.60-1.20); Glomerular Filtration Rate >60 (60-); Glucose, Blood 69 mg/dL (70-99); Potassium, Blood 3.6 mmol/L (3.5-5.5); Sodium, Blood 145 mmol/L (136-145); Total Protein, Blood 5.4 g/dL (6.4-8.2)
--- NOTE | 2018-04-23 13:42 | NUR ---
Pt. is lying in bed resting . He reports to be doing much better and hopes to go home tomorrow or next, encouraged pt. offered spiritual support and prayers.
[2018-04-23] MEDS ORDERED: LEVFLO500 PO (15:00)
--- NOTE | 2018-04-23 15:39 | NUR ---
DISCHARGE DISCHARGE INSTRUCTIONS, MEDICATION LIST AND FOLLOW UP APPOINTMENTS REVIEWED WITH PT. QUESTIONS/CONCERNS ANSWERED. PT VERBALLY INDICATED UNDERSTANDING OF ALL INSTRUCTIONS RECEIVED. NEW SCRIP FAXED TO [facility] PER PT PREFERENCE. PT ESCORTED OUT VIA W/C BY ED.
== END 2018-04-23 15:38 | disposition home or self-care (01) | DRG 919 ==
LOC: MHTC 09:30 → PCU 15:58 → ICUE 18:17 → MHTC 18:19 → ICUE 18:21 → MHTC 18:21 → ICUE 04-19 18:55 → PCU 04-20 16:17 → MEDS 04-21 16:32
PROVIDERS: Family Medicine; Internal Medicine; Nurse Practitioner Acute Care; ADMIT Radiology Diagnostic Radiology
DX: K91.841 Postprocedural hemorrhage of a digestive system organ or structure following other procedure (principal); J69.0 Pneumonitis due to inhalation of food and vomit; K55.1 Chronic vascular disorders of intestine; I77.1 Stricture of artery; K22.70 Barrett's esophagus without dysplasia; K21.9 Gastro-esophageal reflux disease without esophagitis; J43.9 Emphysema, unspecified; I10 Essential (primary) hypertension; I25.10 Atherosclerotic heart disease of native coronary artery without angina pectoris; K44.9 Diaphragmatic hernia without obstruction or gangrene
CPT/HCPCS: 36415; 71045; 74177; 80053; 81001; 82728; 82947; 83540; 83550; 83605; 83735; 84100; 84484; 85025; 85610; 85730; 87086; 87486; 87581; 87633; 87798; 92610; 93005; 93010; 94640; 94760; 96361; 96374; 96375; 96376; 99152; 99153; C1760; C1769; C1887; C1894; C9113; G0378; J0780; J1644; J2250; J2405; J2543; J2550; J2765; J3010; J7030; J7040; J7120; Q9967

== ENCOUNTER 2018-06-07 05:41 | Inpatient (IN) | payer MEDICARE, BC ==
[~2018-06-07] VITALS: Ht 172.7 cm; Wt 82.4 kg
[~2018-06-07 05:41] MED LIST changes: +LEVFLO500 PO
[2018-06-07] MEDS ORDERED: PRED10 PO (06:28)
[2018-06-07] MEDS ORDERED: LEVFLO500 PO (06:29)
--- NOTE | 2018-06-07 11:26 | NUR ---
RIGHT GROIN SITE SOFT NON-TENDER WITH NO HEMATOMA AND NO PULSATILE BLEEDING WITH INTACT DRESSING. RIGHT PT PULSE 1+.
--- NOTE | 2018-06-07 14:06 | NUR ---
PT CONTINUES TO C/O N/V /C APPROX 700ML OF BROWN GASTRIC FLUID OUT. REGLAN 10MG IVP AND BENADRYL 25MG IVP GIVEN. 16FR NG TUBE PLACED WITH APPROX 100ML BROWN GASTRIC FLUID OUT. PT WAITING FOR HOSPITAL BED.
--- NOTE | 2018-06-07 14:58 | NUR ---
FULL REPORT PROVIDED LILY GARCIA TO ASSUME CARE OF PT IN RECOVERY ROOM.
--- NOTE | 2018-06-07 16:05 | NUR ---
PT TO ICU UNIT AT 1550 S/P FAILED MESENTARIC ARTERY STENTING. UNABLE TO PASS STENT D/T HYPEREMESIS. GI CONSULTED AND HAS SEEN PT. PT ARRIVES AWAKE, DROWSY W C/O OF LLQ DULL ABD PAIN 4/10. BT'S ARE TYPANIC AND HYPERACTIVE. NG TO LIS. PT COUGHING UP THICK SPUTUM, LUNGS SOUNDS COARSE T/O. SATS 97% ON RA. VSS. ANGIOSEAL TO RIGHT GROIN STABLE. NO SWELLNG OR BLEEDING. < PEA SIZED KNOT FELT DIRECTLY UNDER PUNCTURE, TENDER TO THE TOUCH. PT HAS SOME MOTTLING TO BILAT KNEES, SKIN COOL WITH POOR PERFUSION TO LEGS. TEMP 96.9; WARM BLANKETS PLACED.
[2018-06-07 16:24] LABS: BASOPHILS ABSOLUTE AUTO 0.03 K/mm3 (0.00-0.23); BASOPHILS PERCENT AUTO 0 % (0-2); EOSINOPHILS PERCENT AUTO 0 % (0-6); Hematocrit 33.4 % (37.0-53.0); Hemoglobin 10.4 g/dL (13.5-17.5); IMMATURE GRAN ABSOLUTE AUTO 0.17 K/mm3 (0.00-0.10); IMMATURE GRAN PERCENT AUTO 1 % (0-1); LYMPHOCYTES ABSOLUTE AUTO 0.89 K/mm3 (0.84-5.20); LYMPHOCYTES PERCENT AUTO 4 % (21-46); MONOCYTES ABSOLUTE AUTO 1.77 K/mm3 (0.16-1.47); MONOCYTES PERCENT AUTO 8 % (4-13); Mean Corpuscular HGB 28.8 pg (26.0-34.0); Mean Corpuscular HGB Conc 31.1 g/dL (31.5-36.5); Mean Platelet Volume 10.1 fL (9.1-12.4); NEUTROPHILS ABSOLUTE AUTO 18.96 K/mm3 (1.96-9.15); NEUTROPHILS PERCENT AUTO 87 % (41-73); Platelet Count 293 K/mm3 (150-400); RDW Coefficient Variation 15.6 % (11.7-14.2); RDW Standard Deviation 53.1 fL (35.1-46.3); Red Blood Cell Count 3.61 M/mm3 (4.30-5.90); White Blood Cell Count 21.82 K/mm3 (4.00-11.30)
[2018-06-07 16:26] LABS: Mean Corpuscular Volume 93 fL (80-100)
[2018-06-07 16:39] LABS: Alanine Aminotransfer (ALT/SGP 47 U/L (12-78); Albumin, Blood 3.2 g/dL (3.4-5.0); Albumin/Globulin Ratio 0.9 (0.8-1.8); Alk Phos 83 U/L (50-136); Anion Gap 5 mmol/L (6-16); Aspartate Aminotrans (AST/SGOT 30 U/L (12-37); Bilirubin, Total 0.5 mg/dL (0.1-1.0); Blood Urea Nitrogen 24 mg/dL (8-24); Bun/Creatinine Ratio 24.6 (12.0-20.0); CO2, Blood 24 mmol/L (21-32); Calcium, Blood 8.2 mg/dL (8.5-10.1); Chloride, Blood 111 mmol/L (98-108); Creatinine, Blood 0.97 mg/dL (0.60-1.20); Globulin, Blood 3.4 g/dL (2.2-4.0); Glomerular Filtration Rate >60 (60-); Glucose, Blood 89 mg/dL (70-99); Potassium, Blood 3.9 mmol/L (3.5-5.5); Sodium, Blood 140 mmol/L (136-145); Total Protein, Blood 6.6 g/dL (6.4-8.2)
[2018-06-07 16:53] LABS: International Normalized Ratio 0.97; Prothrombin Time Results 10.3 Sec (9.7-11.5)
--- NOTE | 2018-06-07 17:27 | NUR ---
DR POOLE IN TO SEE PT
--- NOTE | 2018-06-07 19:15 | NUR ---
ASSUMED PT CARE PT RESTING IN BED WITH BRENDA IN HAND SUCTIONING ORAL SECRETIONS FROM WHAT PT IS ABLE TO COUGH UP; MODERATE, THICK AND WHITE. ALERT AND ORIENTED; ABLE TO MAKE NEEDS KNOWN. NG TUBE HOOKED TO LOW INTERMITTENT SUCTION WITH MINIMAL DARK BROWN/BLOOD TINGED OUTPUT. PT DENIES ANY PAIN, WELL NAUSEA. SEVERE ROUND, DISTENDED, FIRM, AND TENDER ABDOMEN WITH HYPOACTIVE TONES NOTED. RIGHT FEMORAL SITE HAS DRESSING INTACT WITH NO OOZING OR HEMATOMA NOTED. PERIPHERAL PULSES ARE PALPABLE. EXTREMITIES ARE COLD TO THE TOUCH WITH POOR CAPILLARY REFILL. CALL LIGHT WITHIN REACH; PT ABLE TO MAKE HIS NEEDS KNOWN.
--- NOTE | 2018-06-07 20:56 | NUR ---
PLACED CALL TO JASON AMADO SECONDARY TO PT HAVING A HOSPITALIST CONSULT. STATED HIM OR DR. JOE WOULD BE BY LATER TO CONSULT PT.
--- NOTE | 2018-06-07 21:00 | NUR ---
ATTEMPTED TO CALL GI CONSULT; NO ANSWERING SERVICE AVAILABLE. WILL ATTEMPT TO CALL "SHANK CUTTER PROVIDER" NUMBER AVAILABLE FOR CONSULT.
[2018-06-07 21:07] LABS: Hematocrit 30.4 % (37.0-53.0); Hemoglobin 9.8 g/dL (13.5-17.5)
--- NOTE | 2018-06-07 21:54 | NUR ---
JASON MUSTAFA AT BEDSIDE
--- NOTE | 2018-06-07 22:08 | NUR ---
PLACED CALL TO DR. QUINONES IN REGARDS TO LACTIC ACID OF 2.[address] QUINONES ENTERING ORDERS ORIGINALLY. NO NEW ORDERS.
[2018-06-08 03:37] LABS: BASOPHILS ABSOLUTE AUTO 0.02 K/mm3 (0.00-0.23); BASOPHILS PERCENT AUTO 0 % (0-2); EOSINOPHILS PERCENT AUTO 0 % (0-6); Hematocrit 31.7 % (37.0-53.0); Hemoglobin 9.9 g/dL (13.5-17.5); IMMATURE GRAN ABSOLUTE AUTO 0.06 K/mm3 (0.00-0.10); IMMATURE GRAN PERCENT AUTO 0 % (0-1); LYMPHOCYTES ABSOLUTE AUTO 0.32 K/mm3 (0.84-5.20); LYMPHOCYTES PERCENT AUTO 2 % (21-46); MONOCYTES ABSOLUTE AUTO 0.31 K/mm3 (0.16-1.47); MONOCYTES PERCENT AUTO 2 % (4-13); Mean Corpuscular HGB 28.7 pg (26.0-34.0); Mean Corpuscular HGB Conc 31.2 g/dL (31.5-36.5); Mean Corpuscular Volume 92 fL (80-100); NEUTROPHILS ABSOLUTE AUTO 12.94 K/mm3 (1.96-9.15); NEUTROPHILS PERCENT AUTO 95 % (41-73); RDW Coefficient Variation 15.7 % (11.7-14.2); RDW Standard Deviation 52.8 fL (35.1-46.3); Red Blood Cell Count 3.45 M/mm3 (4.30-5.90); White Blood Cell Count 13.65 K/mm3 (4.00-11.30)
[2018-06-08 03:44] LABS: Mean Platelet Volume 10.4 fL (9.1-12.4); Platelet Count 252 K/mm3 (150-400)
[2018-06-08 03:54] LABS: Anion Gap 3 mmol/L (6-16); Blood Urea Nitrogen 21 mg/dL (8-24); Bun/Creatinine Ratio 19.6 (12.0-20.0); CO2, Blood 28 mmol/L (21-32); CPK Creatine Kinase 41 U/L (39-308); Calcium, Blood 7.9 mg/dL (8.5-10.1); Chloride, Blood 112 mmol/L (98-108); Creatinine, Blood 1.07 mg/dL (0.60-1.20); Glomerular Filtration Rate >60 (60-); Glucose, Blood 109 mg/dL (70-99); Phosphorus, Blood 2.5 mg/dL (2.5-4.9); Potassium, Blood 4.4 mmol/L (3.5-5.5); Sodium, Blood 143 mmol/L (136-145)
--- NOTE | 2018-06-08 06:17 | NUR ---
END OF SHIFT SUMMARY PT HAS REMAINED ALERT AND ORIENTED AND ABLE TO MAKE NEEDS KNOWN T/O SHIFT. NG HOOKED TO LOW INTERMITTENT SUCTION WITH A TOTAL OF 100CC OUTPUT OF COFFEE GROUND, DARK BROWN/BLOOD TINGED GASTRIC CONTENTS. RIGHT FEMORAL ACCESS HAS NO NOTED HEMATOMA OR OOZING PRESENT; DRESSING IS CDI. BILATERAL PEDAL PULSES ARE FAINT, BUT PALPABLE. LUNG SOUNDS HAVE REMAINED RHONCHI AND WHEEZING T/O SHIFT WITH NEBULIZER UPDRAFTS ORDERED/SCHEDULED. PT ABLE TO SUCTION OWN ORAL SECRETIONS BY USING YONKAUER; NO EMESIS THIS SHIFT. PT HAS DENIED PAIN ALL NIGHT. CALL LIGHT IS WITHIN REACH.
--- NOTE | 2018-06-08 11:50 | NUR ---
BEGINNING OF SHIFT Assumed care at 0700. Bedside report received from Israel BAUTISTA. Pt on 3 LPM NC. Pt successfully titrated to room air, but needed O2 reapplication after he fell asleep. Dr Nielsen consulted. Plan of care discussed with provider at bedside. Suppository to be given. NG tube to low intermittent suction. Brown drainage from tube.
--- NOTE | 2018-06-08 14:25 | NUR ---
TRANSFER OF CARE No acute changes since last note. Bedside report given to oncoming RNYelitza.
--- NOTE | 2018-06-08 14:40 | NUR ---
RECEIVED REPORT AND ASSUMED CARE OF PATIENT. HE IS ALERT AND ABLE TO EXPRESS HIS NEED APPROPRIATELY. NG TUBE IN PLACE, TO LIS DARK BROWN OUTPUT NOTED IN CANISTER. WILL CONTINUE TO MONITOR PATIENT AND FOLLOW ORDERS. BED LOW AND LOCKED, CALL LIGHT WITHIN EASY REACH OF PATIENT.
--- NOTE | 2018-06-08 15:16 | NUR ---
DR. QUINONES IN TO SEE PATIENT. STATED HE IS NOT GOING TO DO AN EEG AT THIS TIME. WILL WAIT TO SEE DR. RODRIGUEZ'S NOTES.
--- NOTE | 2018-06-08 16:11 | NUR ---
DR. RODRIGUEZ TO SEE PATIENT, STATED HE DOES NOT HAVE A BOWEL OBSTRUCTION. ORDERED A CLEAR LIQUID DIET AND START MIRALAX TODAY, THEN DAILY 0900. REMOVED NG TUBE. WILL GIVE REPORT TO LILY VAIL TO TRANSFER PATIENT TO MEDICAL FLOOR ROOM 336.
--- NOTE | 2018-06-08 18:11 | NUR ---
ICU 15 TRANSFER TO [facility] 364 REPORT RECIEVED. PT ASSIVE TO ROOM VIA W/C, A/O X4, SBA TO BED. IV ACCESS L AC LEAKING ON ARRIVAL, D/C'D. 2 ATTEMPTS BY THIS RN UNSUCCESSFUL. CHARGE & ENVIRONMENTAL EDUCATION SPECIALIST NOTIFIED NO IV ACCESS @ THIS TIME, STATE WILL BE IN TO ATTEMPT. PT PROVIDED CL DIET/ORDER. HE STATE NO ABDOMINAL DISCOMFORT. VSS.
--- NOTE | 2018-06-09 01:11 | NUR ---
CALLED TO DR JOE FOR ALT ABX PT DOES NOT HAVE IV ACCESS AT THIS TIME AND UNABLE TO GIVE IV ABX. HE IS ORDERING AUGMENTIN PO FOR TONIGHT. MULTIPLE NURSES ATTEMPTED TO START IV WITH NO SUCCEESS.
[2018-06-09 04:44] LABS: BASOPHILS ABSOLUTE AUTO 0.01 K/mm3 (0.00-0.23); BASOPHILS PERCENT AUTO 0 % (0-2); EOSINOPHILS PERCENT AUTO 0 % (0-6); Hematocrit 27.8 % (37.0-53.0); Hemoglobin 8.9 g/dL (13.5-17.5); IMMATURE GRAN ABSOLUTE AUTO 0.04 K/mm3 (0.00-0.10); IMMATURE GRAN PERCENT AUTO 0 % (0-1); LYMPHOCYTES ABSOLUTE AUTO 1.61 K/mm3 (0.84-5.20); LYMPHOCYTES PERCENT AUTO 18 % (21-46); MONOCYTES ABSOLUTE AUTO 1.06 K/mm3 (0.16-1.47); MONOCYTES PERCENT AUTO 12 % (4-13); Mean Corpuscular HGB 28.3 pg (26.0-34.0); Mean Platelet Volume 9.9 fL (9.1-12.4); NEUTROPHILS ABSOLUTE AUTO 6.22 K/mm3 (1.96-9.15); NEUTROPHILS PERCENT AUTO 70 % (41-73); Platelet Count 247 K/mm3 (150-400); RDW Coefficient Variation 15.7 % (11.7-14.2); Red Blood Cell Count 3.14 M/mm3 (4.30-5.90); White Blood Cell Count 8.94 K/mm3 (4.00-11.30)
[2018-06-09 05:00] LABS: Albumin, Blood 2.6 g/dL (3.4-5.0); Anion Gap 7 mmol/L (6-16); Blood Urea Nitrogen 24 mg/dL (8-24); Bun/Creatinine Ratio 23.3 (12.0-20.0); CO2, Blood 27 mmol/L (21-32); Calcium, Blood 7.8 mg/dL (8.5-10.1); Chloride, Blood 110 mmol/L (98-108); Creatinine, Blood 1.03 mg/dL (0.60-1.20); Glomerular Filtration Rate >60 (60-); Glucose, Blood 94 mg/dL (70-99); Phosphorus, Blood 3.3 mg/dL (2.5-4.9); Potassium, Blood 3.6 mmol/L (3.5-5.5); Sodium, Blood 144 mmol/L (136-145)
[2018-06-09 05:03] LABS: Mean Corpuscular Volume 89 fL (80-100)
--- NOTE | 2018-06-09 07:23 | NUR ---
NOC SHIFT SUMMARY PT HAS BEEN PLEASANT AND COOPERATIVE WITH CARE. AAOX4, RESP EVEN AND UNLABORED. HE DID LOSE IV ACCESS YESTERDAY AND AFTER MULTIPLE ATTEMPTS BY MULTIPLE NURSES WAS STILL UNABLE TO PLACE A PATENT IV. THEREFOR HIS DOSES OF ROCEPHIN AND FLAGYL WERE NOT GIVEN. I DID CALL TO HOSPITALIST TO SEE IF COULD BE CHANGED TO IM AND PO MEDS. HOSPITALIST PREFERED TO GIVE AUGMENTIN AND NOT ROCEPHIN OR FLAGYL A POWERGLIDE CAN LIKELY BE PLACED TODAY FOR ADMIN. NO ACUTE CHANGES THIS NIGHT. REPORT TO ONCOMING RN.
[2018-06-09 14:42] LABS: Hematocrit 33.7 % (37.0-53.0); Hemoglobin 10.3 g/dL (13.5-17.5)
[2018-06-09] MEDS ORDERED: Florastor250 MG PO (17:24)
[2018-06-09] MEDS ORDERED: Augmentin 875-1 EACH PO (17:24)
--- NOTE | 2018-06-09 17:45 | NUR ---
PT DICHARGING WITH TO TRANSPORT AT 1745. AOX4 AND COOPERATIVE OF ALL CARE. PAPERS REVEIWED AND EDUCATIONAL MATERIAL SENT WITH PT. IV REMOVED PRIOR TO DISCHARGE. PLEASANT AND COOPERATIVE NO DISTRESS NOTED. REVEIWED NEED TO MAKE APPOINTMENTS WITH PCP AND BASEBALL INSPECTOR INSTRUCTED AFTER DISCHARGE. MEDICATION FAXED TO [facility] PER PT REQUEST. ESCORTED BY THIS HYDRAULIC MECHANIC TO ENTRANCE VIA WHEELCHAIR.
== END 2018-06-09 18:00 | disposition home or self-care (01) | DRG 871 ==
LOC: MHTC 05:41 → ICUW 14:19 → MEDS 06-08 10:05 → ICUW 06-08 10:05 → MEDS 06-08 17:11
PROVIDERS: Family Medicine; Internal Medicine Gastroenterology; ADMIT Radiology Diagnostic Radiology
DX: A41.9 Sepsis, unspecified organism (principal); J69.0 Pneumonitis due to inhalation of food and vomit; K92.0 Hematemesis; I77.4 Celiac artery compression syndrome; K55.1 Chronic vascular disorders of intestine; R65.20 Severe sepsis without septic shock; I10 Essential (primary) hypertension; J44.9 Chronic obstructive pulmonary disease, unspecified; I25.10 Atherosclerotic heart disease of native coronary artery without angina pectoris; K22.70 Barrett's esophagus without dysplasia; E78.5 Hyperlipidemia, unspecified; D64.9 Anemia, unspecified; Z95.1 Presence of aortocoronary bypass graft; Z87.891 Personal history of nicotine dependence; F10.21 Alcohol dependence, in remission
CPT/HCPCS: 36415; 71046; 74019; 74176; 80053; 80069; 82550; 83605; 83880; 85014; 85018; 85025; 85610; 86140; 87070; 87075; 87205; 94640; 99152; 99153; C1760; C1769; C1887; C1894; C9113; J0696; J1200; J1644; J2060; J2250; J2405; J2550; J2765; J2920; J3010; J7030; J7120; Q9967

== ENCOUNTER 2018-06-26 13:57 | Inpatient (IN) | payer MEDICARE, BC ==
[~2018-06-26] VITALS: Ht 172.7 cm; Wt 85.0 kg
[~2018-06-26 13:57] MED LIST changes: +Augmentin 875-1 EACH PO; +Florastor250 MG PO; +METO25ER PO; -Metoprolol Tart25 MG PO; -NITR.4SL SL; +QVAR REDIHALE10.6 G1 INH; +ZESTRIL40 MG PO
[2018-06-26] MEDS ORDERED: Pantoprazole So40 MG PO (14:11)
[2018-06-26 14:34] LABS: BASOPHILS ABSOLUTE AUTO 0.01 K/mm3 (0.00-0.23); BASOPHILS PERCENT AUTO 0 % (0-2); EOSINOPHILS PERCENT AUTO 1 % (0-6); Hematocrit 35.1 % (37.0-53.0); Hemoglobin 11.4 g/dL (13.5-17.5); IMMATURE GRAN ABSOLUTE AUTO 0.04 K/mm3 (0.00-0.10); IMMATURE GRAN PERCENT AUTO 1 % (0-1); LYMPHOCYTES ABSOLUTE AUTO 0.53 K/mm3 (0.84-5.20); LYMPHOCYTES PERCENT AUTO 8 % (21-46); MONOCYTES ABSOLUTE AUTO 0.48 K/mm3 (0.16-1.47); MONOCYTES PERCENT AUTO 7 % (4-13); Mean Corpuscular HGB 28.4 pg (26.0-34.0); Mean Corpuscular HGB Conc 32.5 g/dL (31.5-36.5); Mean Corpuscular Volume 87 fL (80-100); Mean Platelet Volume 9.7 fL (9.1-12.4); NEUTROPHILS ABSOLUTE AUTO 5.88 K/mm3 (1.96-9.15); NEUTROPHILS PERCENT AUTO 84 % (41-73); Platelet Count 220 K/mm3 (150-400); RDW Coefficient Variation 15.9 % (11.7-14.2); RDW Standard Deviation 50.4 fL (35.1-46.3); Red Blood Cell Count 4.02 M/mm3 (4.30-5.90); White Blood Cell Count 7.04 K/mm3 (4.00-11.30)
[2018-06-26 14:54] LABS: Alanine Aminotransfer (ALT/SGP 43 U/L (12-78); Albumin, Blood 3.1 g/dL (3.4-5.0); Albumin/Globulin Ratio 0.8 (0.8-1.8); Alk Phos 79 U/L (50-136); Anion Gap 11 mmol/L (6-16); Aspartate Aminotrans (AST/SGOT 23 U/L (12-37); Bilirubin, Total 0.8 mg/dL (0.1-1.0); Blood Urea Nitrogen 28 mg/dL (8-24); Bun/Creatinine Ratio 24.8 (12.0-20.0); CO2, Blood 24 mmol/L (21-32); Calcium, Blood 8.6 mg/dL (8.5-10.1); Chloride, Blood 97 mmol/L (98-108); Creatinine, Blood 1.13 mg/dL (0.60-1.20); Globulin, Blood 3.8 g/dL (2.2-4.0); Glomerular Filtration Rate >60 (60-); Glucose, Blood 104 mg/dL (70-99); Potassium, Blood 4.3 mmol/L (3.5-5.5); Sodium, Blood 132 mmol/L (136-145); Total Protein, Blood 6.9 g/dL (6.4-8.2); Troponin I <0.015 ng/mL (0.000-0.040)
[2018-06-26] MEDS ORDERED: ALBU2.5V5 NEB (15:58)
[2018-06-26] MEDS ORDERED: NITR.4SL SL (16:17)
--- NOTE | 2018-06-26 18:15 | NUR ---
ADMISSION: Pt arrived to room PCU3 from ER via gurney. LS with wheezing throughout. HR reg. BT positive, abd distended. Pt denies pain at this time. Pt oriented to room, unit, care rounding and call system. Denies questions. Pt settled in. Will report to night RN.
[2018-06-26 22:53] LABS: Adenovirus Not Detected (NOT DETECT); Bordetella pertussis Not Detected (NOT DETECT); Chlamydophila pneumoniae Not Detected (NOT DETECT); Coronavirus 229E Not Detected (NOT DETECT); Coronavirus HKU1 Not Detected (NOT DETECT); Coronavirus NL63 Not Detected (NOT DETECT); Coronavirus OC43 Not Detected (NOT DETECT); Human Metapneumovirus Not Detected (NOT DETECT); Human Rhinovirus/Enterovirus Detected (NOT DETECT); Influenza A Not Detected (NOT DETECT); Influenza A/2009-H1 Not Detected (NOT DETECT); Influenza A/H1 Not Detected (NOT DETECT); Influenza A/H3 Not Detected (NOT DETECT); Influenza B Not Detected (NOT DETECT); Mycoplasma pneumoniae Not Detected (NOT DETECT); Parainfluenza Virus 1 Not Detected (NOT DETECT); Parainfluenza Virus 2 Not Detected (NOT DETECT); Parainfluenza Virus 3 Not Detected (NOT DETECT); Parainfluenza Virus 4 Not Detected (NOT DETECT); Respiratory Syncytial Virus Not Detected (NOT DETECT)
[2018-06-27 02:03] LABS: Hematocrit 28.9 % (37.0-53.0); Hemoglobin 9.6 g/dL (13.5-17.5); Mean Corpuscular HGB 28.7 pg (26.0-34.0); Mean Corpuscular HGB Conc 33.2 g/dL (31.5-36.5); Mean Corpuscular Volume 87 fL (80-100); Mean Platelet Volume 9.5 fL (9.1-12.4); Platelet Count 176 K/mm3 (150-400); RDW Coefficient Variation 15.7 % (11.7-14.2); RDW Standard Deviation 49.6 fL (35.1-46.3); Red Blood Cell Count 3.34 M/mm3 (4.30-5.90); White Blood Cell Count 4.51 K/mm3 (4.00-11.30)
[2018-06-27 02:20] LABS: Anion Gap 10 mmol/L (6-16); Blood Urea Nitrogen 30 mg/dL (8-24); Bun/Creatinine Ratio 29.4 (12.0-20.0); CO2, Blood 23 mmol/L (21-32); Calcium, Blood 8.1 mg/dL (8.5-10.1); Chloride, Blood 102 mmol/L (98-108); Creatinine, Blood 1.02 mg/dL (0.60-1.20); Glomerular Filtration Rate >60 (60-); Glucose, Blood 255 mg/dL (70-99); Potassium, Blood 4.2 mmol/L (3.5-5.5); Sodium, Blood 135 mmol/L (136-145)
--- NOTE | 2018-06-27 04:17 | NUR ---
ASSUMED CARE OF PATIENT AT APPROXIMATELY 1905 FROM REYES Nguyen RN. PATIENT ALERT AND ORIENTED X4. PATIENT HAS NOT AMBULATED SINCE SHIFT CHANGE; PATIENT REPORTS HE AMBULATED INDEPENDENTLY AT HOME. PATIENT DENIES PAIN, NUMBNESS, TINGLING, DIZZINESS AND NAUSEA. ADMISSION COMPLETE. PATIENT URINATES INTO URINAL IN BED; REPORTS HE WILL CALL BEFORE HE ATTEMPTS AMBULATION. SCDS PLACED; ONE BAG OF LR INFUSING PER ORDER INTO PIV. PATIENT REPORTS LEGS ARE SWOLLEN DUE TO STERIODS AND STOPPED TAKING THEM. NSR ON TELE; OXYGEN SATURATION ABOVE 90% ON 2LPM VIA NC AT START OF SHIFT; CURRENTLY ON ROOM AIR. TROPONIN NEGATIVE X3. PATIENT CURRENTLY RESTING IN BED; BED ALARM ON; CALL LIGHT IN REACH; BED IN LOWEST POSISTION; WILL CONTINUE TO MONITOR AND ASSESS UNTIL END OF SHIFT.
--- NOTE | 2018-06-27 05:31 | NUR ---
PATIENT REPORTS HE FEELS MUCH BETTER THIS MORNING; REPORTS "I DIDNT KNOW WHERE I WAS MONDAY". SBA TO BATHROOM THIS MORNING. PATIENT DENIES SOB THIS AM. VSS. WILL CONTINUE TO MONITOR AND ASSESS UNTIL END OF SHIFT.
--- NOTE | 2018-06-27 08:30 | NUR ---
AM ASSESSMENT: Pt resting in bed, just finishing breakfast. LS with wheezing throughout, HR reg, BT positive. Pt denies pain at this time and states that his breathing is much better then yesterday. Pt has much improved work of breathing and biox is >90% on RA. VSS. Pulses palp. Some edema in BLE. Pt states that he thinks this is R/T the steroids. Call light in [facility]. WIll monitor.
--- NOTE | 2018-06-27 19:47 | NUR ---
PM NOTE. ASSUMED CARE OF PT APROX 1900, PT IS A&Ox4 AND SBA IN THE ROOM. PT WAS AMITTED DUE TO COPD EXAC. PT IS CURRENTLY ON RA WITH O2 SATS >90%. PT BECOMES SOB WITH ACTIVITY BUT QUICKLY RECOVERS. TELE INTACT, NSR IN THE 80'S90'S PER DRUM REEL CUTTER, PT'S BP IS 137/71. PT HAS 2+ PITTING EDEMA TO HIS BLE, PT STATES THIS IS NEW FOR HIM. L/S COARSE W/EXPIRATORY WHEEZES T/O. PT IS ON RA WITH O2 SATS >90%. RR 21, EVEN BUT SLIGHTLY LABORED. BT PRESENT AND HYPERACTIVE, ABD IS SOFT AND NONTENDER TO PALP. CALL LIGHT IN REACH, BED IS LOCKED AND LOW WILL CONTINUE TO MONITOR.
--- NOTE | 2018-06-27 20:07 | NUR ---
shift summary: Pt resting in bed at this time. Has done well this shift. Has remained on RA and BIOx has maintained >90%. Pt has been up to the bathroom and was able to shower. He tolerated well, but did become SOB with activity. HR has remained stable. VSS. NO acute chagnes. Report given to night RN. Stable at the end of shift.
--- NOTE | 2018-06-28 05:47 | NUR ---
SHIFT SUMMARY. NO ACUTE CHANGES NOTED THIS SHIFT. PT DENIES ANY CHEST PIAN/PRESSURE, N/V OR ABNORMAL SOB. PT BECOMES SLIGHLTY SOB WITH ACTIVITY BUT PT STATES THIS HAS IMPROVED GREATLY. PT SLEPT WELL FOR APROX HALF OF THIS SHIFT. PT'S VS HAVE BEEN STABLE. CALL LIGHT IN REACH, BED IS LOCKED AND LOW WILL CONTINUE TO MONITOR UNTIL REPORT IS GIVEN TO ON COMING RN.
[2018-06-28 06:29] LABS: Albumin, Blood 2.8 g/dL (3.4-5.0); Anion Gap 8 mmol/L (6-16); Blood Urea Nitrogen 29 mg/dL (8-24); Bun/Creatinine Ratio 29.4 (12.0-20.0); CO2, Blood 23 mmol/L (21-32); Calcium, Blood 8.2 mg/dL (8.5-10.1); Chloride, Blood 103 mmol/L (98-108); Creatinine, Blood 0.99 mg/dL (0.60-1.20); Glomerular Filtration Rate >60 (60-); Glucose, Blood 162 mg/dL (70-99); Phosphorus, Blood 3.1 mg/dL (2.5-4.9); Potassium, Blood 4.2 mmol/L (3.5-5.5); Sodium, Blood 134 mmol/L (136-145)
[2018-06-28 06:48] LABS: BASOPHILS ABSOLUTE AUTO 0.01 K/mm3 (0.00-0.23); BASOPHILS PERCENT AUTO 0 % (0-2); EOSINOPHILS PERCENT AUTO 0 % (0-6); Hematocrit 27.5 % (37.0-53.0); Hemoglobin 9.1 g/dL (13.5-17.5); IMMATURE GRAN ABSOLUTE AUTO 0.08 K/mm3 (0.00-0.10); IMMATURE GRAN PERCENT AUTO 1 % (0-1); LYMPHOCYTES ABSOLUTE AUTO 0.21 K/mm3 (0.84-5.20); LYMPHOCYTES PERCENT AUTO 2 % (21-46); MONOCYTES ABSOLUTE AUTO 0.33 K/mm3 (0.16-1.47); MONOCYTES PERCENT AUTO 3 % (4-13); Mean Corpuscular HGB 28.7 pg (26.0-34.0); Mean Corpuscular HGB Conc 33.1 g/dL (31.5-36.5); Mean Corpuscular Volume 87 fL (80-100); Mean Platelet Volume 9.9 fL (9.1-12.4); NEUTROPHILS ABSOLUTE AUTO 10.55 K/mm3 (1.96-9.15); NEUTROPHILS PERCENT AUTO 94 % (41-73); Platelet Count 199 K/mm3 (150-400); RDW Coefficient Variation 15.7 % (11.7-14.2); RDW Standard Deviation 49.6 fL (35.1-46.3); Red Blood Cell Count 3.17 M/mm3 (4.30-5.90); White Blood Cell Count 11.18 K/mm3 (4.00-11.30)
[2018-06-28] MEDS ORDERED: AZIT500 PO (09:58)
[2018-06-28] MEDS ORDERED: BENZ100A PO (10:01)
[2018-06-28] MEDS ORDERED: ALBU3IS INH (10:03)
[2018-06-28] MEDS ORDERED: GUAI600T33 PO (10:04)
[2018-06-28] MEDS ORDERED: PRED10 PO (10:06)
--- NOTE | 2018-06-28 12:54 | NUR ---
DISCHARGE Assumed care of pt at 0700. Report recieved from Renetta BAUTISTA. Shift assessment completed. Pt on room air. Pt states he is ready to go home. Dr Brown in to see pt. States plan for discharge. Pt discharged from unit at 1145 via wheelchair accompanied by his spouse and a volunteer. Medications faxed to Jacquelyn Hooper. This RN called to pharmacy to verify they recieved the orders.
== END 2018-06-28 11:45 | disposition home or self-care (01) | DRG 191 ==
LOC: ER 13:57 → PCU 16:49
PROVIDERS: Emergency Medicine; Internal Medicine; Nurse Practitioner Acute Care; ADMIT Internal Medicine
DX: J43.9 Emphysema, unspecified (principal); R65.10 Systemic inflammatory response syndrome (SIRS) of non-infectious origin without acute organ dysfunction; E87.2 Acidosis; I25.10 Atherosclerotic heart disease of native coronary artery without angina pectoris; I10 Essential (primary) hypertension; E78.00 Pure hypercholesterolemia, unspecified; Z95.1 Presence of aortocoronary bypass graft; Z87.891 Personal history of nicotine dependence; Z79.82 Long term (current) use of aspirin; E78.5 Hyperlipidemia, unspecified; D63.8 Anemia in other chronic diseases classified elsewhere; T38.0X5A Adverse effect of glucocorticoids and synthetic analogues, initial encounter; Y92.239 Unspecified place in hospital as the place of occurrence of the external cause; R73.9 Hyperglycemia, unspecified; J40 Bronchitis, not specified as acute or chronic
CPT/HCPCS: 36415; 71046; 80048; 80053; 80069; 83605; 83880; 84484; 85025; 85027; 87486; 87581; 87633; 87798; 93005; 93010; 94640; 94664; 94667; 94760; 94761; 96365; 96366; 96368; 96375; 98960; 99285-25; J0696; J1650; J2930; J3475; J7030; J7120

== ENCOUNTER 2018-07-08 10:16 | Emergency (ER) | payer MEDICARE, BC ==
[~2018-07-08] VITALS: Ht 175.3 cm; Wt 86.2 kg
[~2018-07-08 10:16] MED LIST changes: +ALBU2.5V5 NEB; +ALBU3IS INH; +AZIT500 PO; +NITR.4SL SL; +Pantoprazole So40 MG PO
[2018-07-08] MEDS ORDERED: Monodox100 MG PO (10:51)
== END 2018-07-08 11:09 | disposition home or self-care (01) ==
LOC: ER 10:16
DX: L03.113 Cellulitis of right upper limb (principal); I25.2 Old myocardial infarction; J44.9 Chronic obstructive pulmonary disease, unspecified; Z79.899 Other long term (current) drug therapy; Z87.891 Personal history of nicotine dependence
CPT/HCPCS: 99282

== ENCOUNTER 2018-08-23 15:09 | Emergency (ER) | payer MEDICARE, BC ==
[~2018-08-23] VITALS: Ht 172.7 cm; Wt 86.2 kg
[~2018-08-23 15:09] MED LIST changes: +Monodox100 MG PO
[2018-08-23] MEDS ORDERED: Percocet 5-3251 EACH PO (15:51)
== END 2018-08-23 16:35 | disposition home or self-care (01) ==
LOC: ER 15:09
DX: S42.212A Unspecified displaced fracture of surgical neck of left humerus, initial encounter for closed fracture (principal); S52.92XA Unspecified fracture of left forearm, initial encounter for closed fracture; J44.9 Chronic obstructive pulmonary disease, unspecified; I25.2 Old myocardial infarction; Z79.82 Long term (current) use of aspirin; Z79.899 Other long term (current) drug therapy; Z87.891 Personal history of nicotine dependence; W19.XXXA Unspecified fall, initial encounter
CPT/HCPCS: 29105; 73030; 73110; 96374-59; 99283-25; J2405; J3010

== ENCOUNTER 2018-12-08 17:28 | Inpatient (IN) | payer MEDICARE, BC ==
[~2018-12-08] VITALS: Ht 172.7 cm; Wt 77.7 kg
[~2018-12-08 17:28] MED LIST changes: +ALBU2.5V5 INH; -ALBU2.5V5 NEB; +CEFP200 PO; +Percocet 5-3251 EACH PO
[2018-12-08 18:12] LABS: BASOPHILS ABSOLUTE AUTO 0.02 K/mm3 (0.00-0.23); BASOPHILS PERCENT AUTO 0 % (0-2); EOSINOPHILS ABSOLUTE AUTO 0.18 K/mm3 (0.00-0.68); EOSINOPHILS PERCENT AUTO 2 % (0-6); Hematocrit 35.2 % (37.0-53.0); Hemoglobin 11.3 g/dL (13.5-17.5); IMMATURE GRAN ABSOLUTE AUTO 0.02 K/mm3 (0.00-0.10); IMMATURE GRAN PERCENT AUTO 0 % (0-1); LYMPHOCYTES ABSOLUTE AUTO 1.89 K/mm3 (0.84-5.20); LYMPHOCYTES PERCENT AUTO 23 % (21-46); MONOCYTES ABSOLUTE AUTO 0.85 K/mm3 (0.16-1.47); MONOCYTES PERCENT AUTO 10 % (4-13); Mean Corpuscular HGB 28.6 pg (26.0-34.0); Mean Corpuscular HGB Conc 32.1 g/dL (31.5-36.5); Mean Corpuscular Volume 89 fL (80-100); Mean Platelet Volume 9.8 fL (9.1-12.4); NEUTROPHILS ABSOLUTE AUTO 5.44 K/mm3 (1.96-9.15); NEUTROPHILS PERCENT AUTO 65 % (41-73); Platelet Count 238 K/mm3 (150-400); RDW Coefficient Variation 15.6 % (11.7-14.2); RDW Standard Deviation 51.2 fL (35.1-46.3); Red Blood Cell Count 3.95 M/mm3 (4.30-5.90)
[2018-12-08 18:31] LABS: Alanine Aminotransfer (ALT/SGP 27 U/L (12-78); Albumin, Blood 3.7 g/dL (3.4-5.0); Albumin/Globulin Ratio 1.2 (0.8-1.8); Alk Phos 113 U/L (50-136); Anion Gap 4 mmol/L (6-16); Aspartate Aminotrans (AST/SGOT 29 U/L (12-37); Bilirubin, Total 0.4 mg/dL (0.1-1.0); Blood Urea Nitrogen 18 mg/dL (8-24); Bun/Creatinine Ratio 15.1 (12.0-20.0); CO2, Blood 25 mmol/L (21-32); Calcium, Blood 8.9 mg/dL (8.5-10.1); Chloride, Blood 112 mmol/L (98-108); Creatinine, Blood 1.19 mg/dL (0.60-1.20); Globulin, Blood 3.1 g/dL (2.2-4.0); Glomerular Filtration Rate >60 (60-); Glucose, Blood 91 mg/dL (70-99); Potassium, Blood 4.6 mmol/L (3.5-5.5); Sodium, Blood 141 mmol/L (136-145); Total Protein, Blood 6.8 g/dL (6.4-8.2)
--- NOTE | 2018-12-08 23:31 | NUR ---
2325 PT ADMITTED TO ROOM 357 PER CART FROM ER.
[2018-12-09 04:09] LABS: Hemoglobin 11.6 g/dL (13.5-17.5); Mean Corpuscular HGB 28.9 pg (26.0-34.0); Mean Corpuscular HGB Conc 33.1 g/dL (31.5-36.5); Mean Corpuscular Volume 87 fL (80-100); Platelet Count 242 K/mm3 (150-400); RDW Coefficient Variation 15.4 % (11.7-14.2); RDW Standard Deviation 49.7 fL (35.1-46.3); Red Blood Cell Count 4.02 M/mm3 (4.30-5.90); White Blood Cell Count 6.69 K/mm3 (4.00-11.30)
[2018-12-09 04:30] LABS: Alanine Aminotransfer (ALT/SGP 32 U/L (12-78); Albumin, Blood 3.6 g/dL (3.4-5.0); Albumin/Globulin Ratio 1.1 (0.8-1.8); Alk Phos 130 U/L (50-136); Anion Gap 8 mmol/L (6-16); Aspartate Aminotrans (AST/SGOT 38 U/L (12-37); Bilirubin, Total 0.5 mg/dL (0.1-1.0); Blood Urea Nitrogen 21 mg/dL (8-24); Bun/Creatinine Ratio 18.6 (12.0-20.0); CO2, Blood 23 mmol/L (21-32); Chloride, Blood 109 mmol/L (98-108); Creatinine, Blood 1.13 mg/dL (0.60-1.20); Globulin, Blood 3.2 g/dL (2.2-4.0); Glomerular Filtration Rate >60 (60-); Glucose, Blood 165 mg/dL (70-99); Potassium, Blood 4.7 mmol/L (3.5-5.5); Sodium, Blood 140 mmol/L (136-145); Total Protein, Blood 6.8 g/dL (6.4-8.2)
--- NOTE | 2018-12-09 05:28 | NUR ---
Rn summary: Patient is alert and oriented. He did receive toradol IV 25mg for pain and has had good relief. Pt has been sleeping and he states it is the first he has been able to sleep in days. Rt elbow is swollen and pt has difficulty moving elbow, unable to straighten arm. Area is warm but no real redness seen, no open area seen. Pt is able to walk to BR with SBA. Call light in reach. Receiving IV ABX. Will continue to monitor.
--- NOTE | 2018-12-09 19:11 | NUR ---
SHIFT SUMAMRY: NO ACUTE CHANGES TO REPORT THIS SHIFT. PT A&O; CALM AND COOPERATIVE WITH CARE. R ELBOW CELLULITIS; BENJAMIN; NO DRAINAGE; PT STATES MORE ROM POSSIBLE THIS SHIFT. IV ABX & STEROIDS CONTINUING. REPORT GIVEN TO ONCOMING RN.
--- NOTE | 2018-12-10 02:43 | NUR ---
HOSPITALIST DR HOLDER ORDERED MELATONIN 5 MG X ONE FOR SLEEP AIDE.
--- NOTE | 2018-12-10 04:04 | NUR ---
SHIFT SUMMARY PATIENT HAD NO ACUTE CHANGES OBSERVED, REPORTS FEELING BETTER AND NO PAIN IN RIGHT FOREARM AND SWELLING REDUCED. AXOX 3 AND INDEPENDENT IN ROOM. VSS/AFEBRILE. DENIES PAIN, SOB, AND N/V. PIV REMAINS INTACT. IV ABX INFUSED. REQUESTED SLEEP AIDE AND HOSPITALIST DR HOLDER ORDERED MELATONIN 5 MG PO X ONE FOR INSOMNIA. PATIENT ABLE TO SLEEP. CALL LIGHT IN REACH. BED IN LOWEST POSITION. WILL CONTINUE TO MONITOR UNTIL DAY SHIFT NURSE ASSUMES CARE.
[2018-12-10 04:51] LABS: BASOPHILS ABSOLUTE AUTO 0.01 K/mm3 (0.00-0.23); BASOPHILS PERCENT AUTO 0 % (0-2); EOSINOPHILS PERCENT AUTO 0 % (0-6); Hemoglobin 10.6 g/dL (13.5-17.5); IMMATURE GRAN ABSOLUTE AUTO 0.06 K/mm3 (0.00-0.10); IMMATURE GRAN PERCENT AUTO 1 % (0-1); LYMPHOCYTES ABSOLUTE AUTO 0.99 K/mm3 (0.84-5.20); LYMPHOCYTES PERCENT AUTO 8 % (21-46); MONOCYTES ABSOLUTE AUTO 0.43 K/mm3 (0.16-1.47); MONOCYTES PERCENT AUTO 3 % (4-13); Mean Corpuscular HGB Conc 33.1 g/dL (31.5-36.5); Mean Corpuscular Volume 87 fL (80-100); Mean Platelet Volume 10.4 fL (9.1-12.4); NEUTROPHILS ABSOLUTE AUTO 11.31 K/mm3 (1.96-9.15); NEUTROPHILS PERCENT AUTO 88 % (41-73); Platelet Count 249 K/mm3 (150-400); RDW Coefficient Variation 15.4 % (11.7-14.2); RDW Standard Deviation 49.6 fL (35.1-46.3); Red Blood Cell Count 3.66 M/mm3 (4.30-5.90)
[2018-12-10 05:18] LABS: Anion Gap 8 mmol/L (6-16); Blood Urea Nitrogen 26 mg/dL (8-24); Bun/Creatinine Ratio 21.8 (12.0-20.0); CO2, Blood 24 mmol/L (21-32); Calcium, Blood 8.8 mg/dL (8.5-10.1); Chloride, Blood 106 mmol/L (98-108); Creatinine, Blood 1.19 mg/dL (0.60-1.20); Glomerular Filtration Rate >60 (60-); Glucose, Blood 149 mg/dL (70-99); Potassium, Blood 4.6 mmol/L (3.5-5.5); Sodium, Blood 138 mmol/L (136-145)
--- NOTE | 2018-12-10 15:52 | NUR ---
Per admit trigger, I met with Mr. Waters to offer prayer and spiritual encouragement. He is active in his [employer] d[employer] and was appreciaitive of prayer. He admits frustration with illness. Father Nagi will visit tomorrow. I will remain available.
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
[2018-12-11 06:17] LABS: BASOPHILS ABSOLUTE AUTO 0.01 K/mm3 (0.00-0.23); BASOPHILS PERCENT AUTO 0 % (0-2); EOSINOPHILS PERCENT AUTO 0 % (0-6); Hematocrit 31.5 % (37.0-53.0); Hemoglobin 10.4 g/dL (13.5-17.5); IMMATURE GRAN ABSOLUTE AUTO 0.06 K/mm3 (0.00-0.10); IMMATURE GRAN PERCENT AUTO 1 % (0-1); LYMPHOCYTES ABSOLUTE AUTO 1.53 K/mm3 (0.84-5.20); LYMPHOCYTES PERCENT AUTO 14 % (21-46); MONOCYTES ABSOLUTE AUTO 0.83 K/mm3 (0.16-1.47); MONOCYTES PERCENT AUTO 7 % (4-13); Mean Corpuscular HGB 28.5 pg (26.0-34.0); Mean Corpuscular Volume 86 fL (80-100); Mean Platelet Volume 10.1 fL (9.1-12.4); NEUTROPHILS ABSOLUTE AUTO 8.87 K/mm3 (1.96-9.15); NEUTROPHILS PERCENT AUTO 79 % (41-73); Platelet Count 258 K/mm3 (150-400); RDW Coefficient Variation 15.6 % (11.7-14.2); RDW Standard Deviation 49.1 fL (35.1-46.3); Red Blood Cell Count 3.65 M/mm3 (4.30-5.90)
--- NOTE | 2018-12-11 06:17 | NUR ---
FORMING FIXER SUMMARY NO ACUTE CHANGES THIS SHIFT. PT AAOX4 AND INDEPENDENT. PT'S R ELBOW SEEMS IMPROVED PER PT, HOWEVER HE IS STILL UNABLE TO FULLY EXTEND THE ARM. PT STATES "THERES A KNOT ON THE TOP OF MY ELBOW THATS MAKING IT SO I CANT FULL EXTEND IT BUT I FEEL LIKE ITS SLOWLY WORKING ITS WAY OUT". PT HAS RESTED MOST OF SHIFT. DENIES PAIN. VSS, WILL CONTINUE TO MONITOR.
[2018-12-11] MEDS ORDERED: CLIN300 PO (11:19)
[2018-12-11] MEDS ORDERED: DOCU100 PO (11:19)
[2018-12-11] MEDS ORDERED: SENN187 PO (11:20)
[2018-12-11] MEDS ORDERED: Prednisone10 MG PO (11:20)
--- NOTE | 2018-12-11 15:13 | NUR ---
DISCHARGED TO HOME AT 1415 WITH INSTRUCTIONS AND BELONGINGS. HE HAD A SMALL FORMED BM ABOUT AN HOUR AFTER A SUPP. HE AMBULATED THE PRICE TWICE. HE WAS GLAD TO GO HOME. 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 HIS ROM HAS INCREASED IN HIS R ELBOW TODAY COMPARED TO YESTERDAY.
== END 2018-12-11 14:15 | disposition home or self-care (01) | DRG 603 ==
LOC: ER 17:28 → MEDS 21:44 → ENPENDDIS 12-11 09:56 → MEDS 12-11 14:15
PROVIDERS: Internal Medicine; Physician Assistant; ADMIT Internal Medicine
DX: L03.113 Cellulitis of right upper limb (principal); J44.9 Chronic obstructive pulmonary disease, unspecified; K21.9 Gastro-esophageal reflux disease without esophagitis; K22.70 Barrett's esophagus without dysplasia; K22.2 Esophageal obstruction; I12.9 Hypertensive chronic kidney disease with stage 1 through stage 4 chronic kidney disease, or unspecified chronic kidney disease; N18.3 Chronic kidney disease, stage 3 (moderate); E78.5 Hyperlipidemia, unspecified; I73.9 Peripheral vascular disease, unspecified; I25.10 Atherosclerotic heart disease of native coronary artery without angina pectoris; Z95.1 Presence of aortocoronary bypass graft; S42.302D Unspecified fracture of shaft of humerus, left arm, subsequent encounter for fracture with routine healing; Z87.891 Personal history of nicotine dependence; Z79.82 Long term (current) use of aspirin; Z79.899 Other long term (current) drug therapy
CPT/HCPCS: 36415; 73201; 80048; 80053; 83605; 85025; 85027; 85651; 86141; 94640; 94760; 96365-59; 96375-59; 99284-25; J1100; J1650; J1885; J2405; J2920; J2930; J3010; J7050; J7512; Q9967

== ENCOUNTER → 2019-01-17 | Outpatient (CLI) | payer MEDICARE, BC ==
[~2019-01-17] MED LIST changes: +ALBU2.5V5 NEB; +Aspir 8181 MG PO; +CEPH500 PO; +CLIN300 PO; +DOCU100 PO; +LOVASTATIN40 MG PO; +MIRALAX17 GM PO; +Nitrostat0.3 MG SL; +PROAIR INH; +Prednisone10 MG PO; +SENN187 PO; +ZESTRIL40 M1 PO
== END ==
LOC: LAB SHORT 08:22 → PLD 08:22
DX: L82.1 Other seborrheic keratosis (principal)
CPT/HCPCS: 88305

== ENCOUNTER 2019-02-09 21:06 | Emergency (ER) | payer MEDICARE, BC ==
[~2019-02-09] VITALS: Ht 172.7 cm; Wt 36.3 kg
[~2019-02-09 21:06] MED LIST changes: -ALBU2.5V5 INH; -Aspir 8181 MG PO; -LOVA40 PO; -MIRALAX17 GM PO; -Nitrostat0.3 MG SL; -PROAIR INH; -ZESTRIL40 M1 PO
[2019-02-09 22:00] LABS: BASOPHILS ABSOLUTE AUTO 0.02 K/mm3 (0.00-0.23); BASOPHILS PERCENT AUTO 0 % (0-2); EOSINOPHILS ABSOLUTE AUTO 0.31 K/mm3 (0.00-0.68); EOSINOPHILS PERCENT AUTO 5 % (0-6); Hematocrit 33.1 % (37.0-53.0); Hemoglobin 10.7 g/dL (13.5-17.5); IMMATURE GRAN ABSOLUTE AUTO 0.03 K/mm3 (0.00-0.10); IMMATURE GRAN PERCENT AUTO 1 % (0-1); LYMPHOCYTES ABSOLUTE AUTO 2.01 K/mm3 (0.84-5.20); LYMPHOCYTES PERCENT AUTO 33 % (21-46); MONOCYTES PERCENT AUTO 10 % (4-13); Mean Corpuscular HGB 29.6 pg (26.0-34.0); Mean Corpuscular HGB Conc 32.3 g/dL (31.5-36.5); Mean Corpuscular Volume 91 fL (80-100); Mean Platelet Volume 9.6 fL (9.1-12.4); NEUTROPHILS ABSOLUTE AUTO 3.07 K/mm3 (1.96-9.15); NEUTROPHILS PERCENT AUTO 51 % (41-73); Platelet Count 243 K/mm3 (150-400); RDW Coefficient Variation 17.4 % (11.7-14.2); RDW Standard Deviation 58.9 fL (35.1-46.3); Red Blood Cell Count 3.62 M/mm3 (4.30-5.90); White Blood Cell Count 6.04 K/mm3 (4.00-11.30)
[2019-02-09] MEDS ORDERED: DOCU100 PO (22:09)
[2019-02-09] MEDS ORDERED: ZESTRIL40 M1 PO (22:09)
[2019-02-09] MEDS ORDERED: LOVA40 PO (22:09)
[2019-02-09] MEDS ORDERED: AMLO5 PO (22:09)
[2019-02-09] MEDS ORDERED: Aspir 8181 MG PO (22:10)
[2019-02-09] MEDS ORDERED: Nitrostat0.3 MG SL (22:10)
[2019-02-09] MEDS ORDERED: PANT40 PO (22:10)
[2019-02-09] MEDS ORDERED: METO25ER PO (22:10)
[2019-02-09] MEDS ORDERED: MIRALAX17 GM PO (22:11)
[2019-02-09] MEDS ORDERED: PROAIR INH (22:12)
[2019-02-09] MEDS ORDERED: QVAR REDIHALE10.6 G1 INH (22:13)
[2019-02-09] MEDS ORDERED: ALBU2.5V5 INH (22:13)
[2019-02-09 22:20] LABS: Alanine Aminotransfer (ALT/SGP 38 U/L (12-78); Albumin, Blood 3.6 g/dL (3.4-5.0); Albumin/Globulin Ratio 1.2 (0.8-1.8); Alk Phos 128 U/L (50-136); Anion Gap 6 mmol/L (6-16); Aspartate Aminotrans (AST/SGOT 18 U/L (12-37); Bilirubin, Total 0.3 mg/dL (0.1-1.0); Blood Urea Nitrogen 22 mg/dL (8-24); Bun/Creatinine Ratio 21.8 (12.0-20.0); CO2, Blood 25 mmol/L (21-32); Calcium, Blood 8.5 mg/dL (8.5-10.1); Chloride, Blood 112 mmol/L (98-108); Creatinine, Blood 1.01 mg/dL (0.60-1.20); Globulin, Blood 3.1 g/dL (2.2-4.0); Glomerular Filtration Rate >60 (60-); Glucose, Blood 99 mg/dL (70-99); Potassium, Blood 4.2 mmol/L (3.5-5.5); Sodium, Blood 143 mmol/L (136-145); Total Protein, Blood 6.7 g/dL (6.4-8.2); Troponin I <0.015 ng/mL (0.000-0.040)
== END 2019-02-10 00:25 | disposition home or self-care (01) ==
LOC: ER 21:06
PROVIDERS: Physician Assistant
DX: S06.5X0A Traumatic subdural hemorrhage without loss of consciousness, initial encounter (principal); S90.32XA Contusion of left foot, initial encounter; J44.9 Chronic obstructive pulmonary disease, unspecified; I25.10 Atherosclerotic heart disease of native coronary artery without angina pectoris; E78.5 Hyperlipidemia, unspecified; I10 Essential (primary) hypertension; Z79.899 Other long term (current) drug therapy; Z79.82 Long term (current) use of aspirin; Z79.51 Long term (current) use of inhaled steroids; Z87.891 Personal history of nicotine dependence; W10.9XXA Fall (on) (from) unspecified stairs and steps, initial encounter
CPT/HCPCS: 36415; 70450; 72125; 73700; 80053; 83880; 84484; 85025; 93005; 93010; 99284-25

== ENCOUNTER 2019-03-29 02:57 | Inpatient (IN) | payer MEDICARE, BC ==
[~2019-03-29] VITALS: Ht 177.8 cm; Wt 81.5 kg
[~2019-03-29 02:57] MED LIST changes: +ALBU2.5V5 INH; +Aspir 8181 MG PO; +Lovastatin20 MG PO; +MIRALAX17 GM PO; +Nitrostat0.3 MG SL; +PROAIR RESPICL90 MCG INH; +ZESTRIL40 M1 PO
[2019-03-29 05:14] LABS: BASOPHILS ABSOLUTE AUTO 0.02 K/mm3 (0.00-0.23); BASOPHILS PERCENT AUTO 0 % (0-2); EOSINOPHILS ABSOLUTE AUTO 0.06 K/mm3 (0.00-0.68); EOSINOPHILS PERCENT AUTO 1 % (0-6); Hemoglobin 11.4 g/dL (13.5-17.5); IMMATURE GRAN ABSOLUTE AUTO 0.03 K/mm3 (0.00-0.10); IMMATURE GRAN PERCENT AUTO 0 % (0-1); LYMPHOCYTES ABSOLUTE AUTO 1.63 K/mm3 (0.84-5.20); LYMPHOCYTES PERCENT AUTO 15 % (21-46); MONOCYTES ABSOLUTE AUTO 0.96 K/mm3 (0.16-1.47); MONOCYTES PERCENT AUTO 9 % (4-13); Mean Corpuscular HGB 29.8 pg (26.0-34.0); Mean Corpuscular HGB Conc 33.5 g/dL (31.5-36.5); Mean Corpuscular Volume 89 fL (80-100); Mean Platelet Volume 9.8 fL (9.1-12.4); NEUTROPHILS ABSOLUTE AUTO 7.99 K/mm3 (1.96-9.15); NEUTROPHILS PERCENT AUTO 75 % (41-73); Platelet Count 226 K/mm3 (150-400); RDW Coefficient Variation 14.4 % (11.7-14.2); RDW Standard Deviation 46.1 fL (35.1-46.3); Red Blood Cell Count 3.83 M/mm3 (4.30-5.90); White Blood Cell Count 10.69 K/mm3 (4.00-11.30)
[2019-03-29 05:31] LABS: Alanine Aminotransfer (ALT/SGP 17 U/L (12-78); Albumin, Blood 3.6 g/dL (3.4-5.0); Albumin/Globulin Ratio 1.2 (0.8-1.8); Alk Phos 106 U/L (50-136); Anion Gap 9 mmol/L (6-16); Aspartate Aminotrans (AST/SGOT 10 U/L (12-37); Bilirubin, Total 0.4 mg/dL (0.1-1.0); Blood Urea Nitrogen 19 mg/dL (8-24); Bun/Creatinine Ratio 17.3 (12.0-20.0); CO2, Blood 24 mmol/L (21-32); Calcium, Blood 8.9 mg/dL (8.5-10.1); Chloride, Blood 109 mmol/L (98-108); Globulin, Blood 3.1 g/dL (2.2-4.0); Glomerular Filtration Rate >60 (60-); Glucose, Blood 91 mg/dL (70-99); Potassium, Blood 3.9 mmol/L (3.5-5.5); Sodium, Blood 142 mmol/L (136-145); Total Protein, Blood 6.7 g/dL (6.4-8.2)
[2019-03-29 06:49] LABS: Influenza A Negative (NEGATIVE); Influenza B Negative (NEGATIVE)
--- NOTE | 2019-03-29 18:46 | NUR ---
SHIFT SUMMARY. 1114 PT ADMITTED TO MEDICAL FLOOR VIA GURNEY, SELF TRANSFERED TO BED WITHOUT ISSUE. PT PLACED IN NEGATIVE PRESSURE ROOM TO R/O TB, 2V-CXR RESULTS RECIEVED AND REVIEWED REPORT WITH DR. NOWAK, ORDERS RECIEVED TO D/C ISOLATION. PT DENIES PAIN, N/V. PT REPORTS MILD SOB WITH EXERTION. LUNGS WITH EXPIRATORY WHEEZES THROUGHOUT. NO O2. NO NEW CHANGES OR CONCERNS.
--- NOTE | 2019-03-30 04:41 | NUR ---
PRECISION GRINDER SUMMARY PT A/O X4. INDEPENDENT IN ROOM. DENIES PAIN, NAUSEA, SOB. VSS. NO ACUTE CHANGES. LUNGS WHEEZY THROUGHOUT. CALL LIGHT WITHIN REACH. WILL CONTINUE TO MONITOR.
[2019-03-30 06:12] LABS: BASOPHILS PERCENT AUTO 0 % (0-2); EOSINOPHILS PERCENT AUTO 0 % (0-6); Hematocrit 30.5 % (37.0-53.0); Hemoglobin 10.2 g/dL (13.5-17.5); IMMATURE GRAN ABSOLUTE AUTO 0.05 K/mm3 (0.00-0.10); IMMATURE GRAN PERCENT AUTO 0 % (0-1); LYMPHOCYTES ABSOLUTE AUTO 1.38 K/mm3 (0.84-5.20); LYMPHOCYTES PERCENT AUTO 12 % (21-46); MONOCYTES ABSOLUTE AUTO 0.86 K/mm3 (0.16-1.47); MONOCYTES PERCENT AUTO 8 % (4-13); Mean Corpuscular HGB 29.6 pg (26.0-34.0); Mean Corpuscular HGB Conc 33.4 g/dL (31.5-36.5); Mean Corpuscular Volume 88 fL (80-100); NEUTROPHILS PERCENT AUTO 80 % (41-73); Platelet Count 211 K/mm3 (150-400); RDW Coefficient Variation 14.3 % (11.7-14.2); RDW Standard Deviation 45.9 fL (35.1-46.3); Red Blood Cell Count 3.45 M/mm3 (4.30-5.90); White Blood Cell Count 11.39 K/mm3 (4.00-11.30)
[2019-03-30 06:32] LABS: Alanine Aminotransfer (ALT/SGP 13 U/L (12-78); Albumin, Blood 3.2 g/dL (3.4-5.0); Albumin/Globulin Ratio 1.1 (0.8-1.8); Alk Phos 88 U/L (50-136); Anion Gap 9 mmol/L (6-16); Aspartate Aminotrans (AST/SGOT 12 U/L (12-37); Bilirubin, Total 0.5 mg/dL (0.1-1.0); Blood Urea Nitrogen 23 mg/dL (8-24); Bun/Creatinine Ratio 23.1 (12.0-20.0); CO2, Blood 21 mmol/L (21-32); Calcium, Blood 8.4 mg/dL (8.5-10.1); Chloride, Blood 112 mmol/L (98-108); Globulin, Blood 2.9 g/dL (2.2-4.0); Glomerular Filtration Rate >60 (60-); Glucose, Blood 115 mg/dL (70-99); Potassium, Blood 3.9 mmol/L (3.5-5.5); Sodium, Blood 142 mmol/L (136-145); Total Protein, Blood 6.1 g/dL (6.4-8.2)
--- NOTE | 2019-03-30 19:51 | NUR ---
SHIFT SUMMARY. A&OX4, INDEPENDENT IN ROOM. PT DENIES PAIN, N/V. PT WITH MILD SOB WITH EXERTION, ON RA, LUNGS WITH EXPIRATORY WHEEZES THROUGHOUT. PT TAKEN OUT OF ISOLATION AFTER CXR RESULTS. NO NEW CHANGES OR CONCERNS.
[2019-03-31] MEDS ORDERED: AZIT500 PO (13:32)
[2019-03-31] MEDS ORDERED: GUAI600T33 PO (13:33)
[2019-03-31] MEDS ORDERED: Prednisone10 MG PO (13:37)
--- NOTE | 2019-03-31 15:19 | NUR ---
1432 PT DISCHARGED HOME VIA PERSONA VEHICLE ACCOMPANIED AND DRIVEN BY . PT ESCORTED TO ENTRANCE VIA W/C BY CISO. IV REMOVED. D/C PAPERWORK REVIEWED WITH PT AND COPY PROVIDED. NO NEW CHANGES OR CONCERNS.
== END 2019-03-31 14:35 | disposition home or self-care (01) | DRG 872 ==
LOC: ER 02:57 → ERHOLD 08:44 → MEDS 08:44
PROVIDERS: Emergency Medicine; ADMIT Internal Medicine
DX: A41.9 Sepsis, unspecified organism (principal); J44.1 Chronic obstructive pulmonary disease with (acute) exacerbation; J44.0 Chronic obstructive pulmonary disease with (acute) lower respiratory infection; J20.9 Acute bronchitis, unspecified; I10 Essential (primary) hypertension; I25.10 Atherosclerotic heart disease of native coronary artery without angina pectoris; E78.5 Hyperlipidemia, unspecified; I73.9 Peripheral vascular disease, unspecified; Z20.1 Contact with and (suspected) exposure to tuberculosis; Z95.1 Presence of aortocoronary bypass graft; Z87.891 Personal history of nicotine dependence; M25.521 Pain in right elbow; G89.29 Other chronic pain
CPT/HCPCS: 36415; 71045; 71046; 80053; 83605; 84145; 85025; 87040; 87804; 93005; 93010; 94640; 94644; 94760; 96361; 96374; 99285-25; A9270; A9270-GY; J0696; J1650; J2930; J7030; J7512

== ENCOUNTER 2019-06-16 08:08 | Inpatient (IN) | payer MEDICARE, BC ==
[~2019-06-16] VITALS: Ht 170.2 cm; Wt 86.5 kg
[~2019-06-16 08:08] MED LIST changes: +LOVA40 PO; -Lovastatin20 MG PO
[2019-06-16 08:41] LABS: PCO2 Arterial 33 mmHg (35-45); PO2 Arterial 73 mmHg (80-100); pH Blood Arterial 7.46 (7.35-7.45)
[2019-06-16 09:33] LABS: BASOPHILS ABSOLUTE AUTO 0.02 K/mm3 (0.00-0.23); BASOPHILS PERCENT AUTO 0 % (0-2); EOSINOPHILS ABSOLUTE AUTO 0.09 K/mm3 (0.00-0.68); EOSINOPHILS PERCENT AUTO 1 % (0-6); Hematocrit 33.1 % (37.0-53.0); Hemoglobin 10.8 g/dL (13.5-17.5); IMMATURE GRAN ABSOLUTE AUTO 0.07 K/mm3 (0.00-0.10); IMMATURE GRAN PERCENT AUTO 1 % (0-1); LYMPHOCYTES ABSOLUTE AUTO 1.69 K/mm3 (0.84-5.20); LYMPHOCYTES PERCENT AUTO 12 % (21-46); MONOCYTES ABSOLUTE AUTO 1.33 K/mm3 (0.16-1.47); MONOCYTES PERCENT AUTO 10 % (4-13); Mean Corpuscular HGB Conc 32.6 g/dL (31.5-36.5); Mean Corpuscular Volume 89 fL (80-100); Mean Platelet Volume 9.8 fL (9.1-12.4); NEUTROPHILS ABSOLUTE AUTO 10.42 K/mm3 (1.96-9.15); NEUTROPHILS PERCENT AUTO 77 % (41-73); Platelet Count 250 K/mm3 (150-400); RDW Coefficient Variation 14.7 % (11.7-14.2); Red Blood Cell Count 3.73 M/mm3 (4.30-5.90); White Blood Cell Count 13.62 K/mm3 (4.00-11.30)
[2019-06-16 09:36] LABS: Alanine Aminotransfer (ALT/SGP 32 U/L (12-78); Albumin, Blood 3.5 g/dL (3.4-5.0); Albumin/Globulin Ratio 1.1 (0.8-1.8); Alk Phos 96 U/L (50-136); Anion Gap 9 mmol/L (6-16); Aspartate Aminotrans (AST/SGOT 17 U/L (12-37); Bilirubin, Total 0.3 mg/dL (0.1-1.0); Blood Urea Nitrogen 19 mg/dL (8-24); Bun/Creatinine Ratio 17.3 (12.0-20.0); CO2, Blood 23 mmol/L (21-32); Calcium, Blood 8.6 mg/dL (8.5-10.1); Chloride, Blood 110 mmol/L (98-108); Globulin, Blood 3.1 g/dL (2.2-4.0); Glomerular Filtration Rate >60 (60-); Glucose, Blood 87 mg/dL (70-99); Sodium, Blood 142 mmol/L (136-145); Total Protein, Blood 6.6 g/dL (6.4-8.2); Troponin I <0.015 ng/mL (0.000-0.040)
[2019-06-16 09:38] LABS: Lactate Dehydrogenase (Ld),Bld 235 U/L (100-240)
[2019-06-16 09:39] LABS: Alanine Aminotransfer (ALT/SGP 30 U/L (12-78); Albumin, Blood 3.5 g/dL (3.4-5.0); Albumin/Globulin Ratio 1.1 (0.8-1.8); Alk Phos 98 U/L (50-136); Aspartate Aminotrans (AST/SGOT 19 U/L (12-37); Bilirubin, Direct <0.1 mg/dL (0.0-0.3); Bilirubin, Indirect Unable to Calculate mg/dL (0.1-0.7); Bilirubin, Total 0.4 mg/dL (0.1-1.0); Globulin, Blood 3.1 g/dL (2.2-4.0); Total Protein, Blood 6.6 g/dL (6.4-8.2)
[2019-06-16 09:48] LABS: International Normalized Ratio 0.96; Prothrombin Time Results 10.3 Sec (9.7-11.5)
[2019-06-16 10:42] LABS: Influenza A Negative (NEGATIVE); Influenza B Negative (NEGATIVE)
[2019-06-16 15:22] LABS: Source, Urine Clean Catch
[2019-06-16 15:28] LABS: Bilirubin, Urine Neg (Neg); Blood, Urine 1+ (Neg); Glucose Qualitative, Urine Neg (Neg); Ketones, Urine Neg (Neg); Leukocyte Esterase, Urine Neg (Neg); Nitrite, Urine Neg (Neg); Protein, Urine Neg (Neg); Specific Gravity, Urine 1.015 (1.003-1.022); Urobilinogen, Urine NORM (Normal)
[2019-06-16 15:34] LABS: Appearance, Urine Clear (Clear); Color, Urine Yellow (P-Yellow)
[2019-06-16 15:35] LABS: Bacteria Few /hpf; Mucus Light (0-Heavy); Red Blood Cells, Urine 0-2 /hpf (0-2); Squamous Epithelial Cells Rare /hpf (Few); White Blood Cells, Urine 0-2 /hpf (0-5)
--- NOTE | 2019-06-16 16:15 | NUR ---
SHIFT SUMMARY ED ADMIT AFTER LUNCH. PATIENT DENIES PAIN AND NAUSEA. PATIENT REPORTS SHORTNESS OF BREATH BUT OXYGEN SATURATION IS ABOVE 96% ON ROOM AIR. PATIENT GIVEN SCHEDULED AND PRN ALBUTEROL TREATMENTS BY RT. PATIENT UP SBA IN ROOM AND USING URINAL AT BEDSIDE. PATIENT ON DROPLET PRECAUTIONS FOR COVID RULE OUT. CALL LIGHT IN REACH.
--- NOTE | 2019-06-17 05:23 | NUR ---
COVID-19 NEGATIVE PT NEGATIVE FOR COVID. RESULTS CAME IN AT 06/17/19 @ 0599. CONFIRMED NEGATIVE RESULTS WITH LAB SHORTLY AFTER RECEIVING RESULT IN PT RECORD. GAS SUBSTATION OPERATORLILY MOJICA NOTIFIED.
--- NOTE | 2019-06-17 05:25 | NUR ---
SHIFT SUMMARY PT HAS RESTED WELL THIS SHIFT. HE HAS DENIED NEEDS WHEN ASKED, PT REPORTS SO, AND APPEARS LABORED AT TIMES WITH REST. INHALERS PROVIED BY RT ORDERED. PT HAS BEEN INDEPENDENT IN THE ROOM. A/OX4, SATS MAINTAINED ON RA. PT NEGATIVE FOR COVID. RESULTS RECEIVED THIS AM. PT IS AFEBRILE AND VITALS STABLE. IV SOLUMEDROL CONTINUED PER ORDERS. NO ACUTE CHANGES TO REPORT. BED IN LOWEST POSITION, CALL LIGHT WITHIN REACH. WILL CONTINUE TO MONITOR AND REPORT TO ONCOMING RN.
[2019-06-17 05:58] LABS: BASOPHILS ABSOLUTE AUTO 0.01 K/mm3 (0.00-0.23); BASOPHILS PERCENT AUTO 0 % (0-2); EOSINOPHILS PERCENT AUTO 0 % (0-6); Hematocrit 35.4 % (37.0-53.0); Hemoglobin 11.6 g/dL (13.5-17.5); IMMATURE GRAN PERCENT AUTO 1 % (0-1); LYMPHOCYTES ABSOLUTE AUTO 1.01 K/mm3 (0.84-5.20); LYMPHOCYTES PERCENT AUTO 8 % (21-46); MONOCYTES ABSOLUTE AUTO 0.09 K/mm3 (0.16-1.47); MONOCYTES PERCENT AUTO 1 % (4-13); Mean Corpuscular HGB 28.7 pg (26.0-34.0); Mean Corpuscular HGB Conc 32.8 g/dL (31.5-36.5); Mean Corpuscular Volume 88 fL (80-100); NEUTROPHILS ABSOLUTE AUTO 11.45 K/mm3 (1.96-9.15); NEUTROPHILS PERCENT AUTO 90 % (41-73); Platelet Count 275 K/mm3 (150-400); RDW Coefficient Variation 14.7 % (11.7-14.2); RDW Standard Deviation 47.6 fL (35.1-46.3); Red Blood Cell Count 4.04 M/mm3 (4.30-5.90); White Blood Cell Count 12.66 K/mm3 (4.00-11.30)
[2019-06-17 06:12] LABS: Anion Gap 9 mmol/L (6-16); Blood Urea Nitrogen 25 mg/dL (8-24); Bun/Creatinine Ratio 24.3 (12.0-20.0); CO2, Blood 23 mmol/L (21-32); Calcium, Blood 8.7 mg/dL (8.5-10.1); Chloride, Blood 105 mmol/L (98-108); Creatinine, Blood 1.03 mg/dL (0.60-1.20); Glomerular Filtration Rate >60 (60-); Glucose, Blood 148 mg/dL (70-99); Potassium, Blood 4.6 mmol/L (3.5-5.5); Sodium, Blood 137 mmol/L (136-145)
--- NOTE | 2019-06-17 19:10 | NUR ---
SHIFT SUMMARY: NO ACUTE CHANGES TO REPORT THIS SHIFT. PT A&O; CALM AND COOPERATIVE WITH CARE; INDEPENDENT IN ROOM. NO C/O PAIN OR NAUSEA THIS SHIFT. IV STEROIDS CONTINUING. REPORT GIVEN TO ONCOMING RN.
--- NOTE | 2019-06-18 04:45 | NUR ---
SHIFT SUMMARY ADMITTED FOR BRONCHITIS. FULL CODE. INDEPENDENT IN ROOM, A&O X4, RA, KAIBAB. IV SOLUMEDROL IS SCHEDULED. 2 G LOW NA+ DIET. LUNGS SOUND WHEEZY. NO NEW CONCERNS THIS SHIFT
--- NOTE | 2019-06-18 15:18 | NUR ---
Per admit trigger, I met with Mr. Waters to offer spiritual encouragement and prayer. He told me many stories from his life. He was raised [employer] and only returned to the episcopalian a few years ago. He has a tracee dillon and a strong marriage. He admits he is worried about aging and becoming a burden. He is not fearful of , but of a diminishing QOL. He would like to remain a full code for now. He is excited to welcome his first grt-grandchild soon. We had an easy rapport and Mr. Waters responded well to my interventions. I will remain available.
--- NOTE | 2019-06-18 18:22 | NUR ---
SHIFT SUMMARY: NO NEW ACUTE EVENTS TO REPORT THIS SHIFT. PT A&O; Council; CALM AND COOPERATIVE WITH CARE; INDEPENDENT IN ROOM. STEROIDS TRANSITIONED TO PO. EXPECTED D/C HOME 06/18. WCRUFUS.
--- NOTE | 2019-06-19 04:27 | NUR ---
SHIFT SUMMARY ADMITTED FOR BRONCHITIS. FULL CODE. HOPEFUL FOR DC TODAY. ORAL STEROIDS ARE SCHEDULED. LOWER [place]. HE IS ON RA, INDEPENDENT IN ROOM, A&O X4, LUNGS SOUND COARSE. HE SLEPT WELL THIS SHIFT. NO NEW CONCERNS.
[2019-06-19] MEDS ORDERED: PRED20 PO (10:55)
[2019-06-19] MEDS ORDERED: Prednisone10 MG PO (11:00)
--- NOTE | 2019-06-19 12:03 | NUR ---
DISCHARGE INSTRUCTIONS COMPLETED AND DISCUSSED WITH PT EXPRESSING UNDERSTANDING. SCRIPT FAXED TO LARRY STEARNS. TO [facility] VIA W/C WITH PICKING HIM UP.
== END 2019-06-19 11:55 | disposition home or self-care (01) | DRG 189 ==
LOC: ER 08:08 → MEDS 10:11 → ENPENDDIS 06-19 10:00 → MEDS 06-19 11:55
PROVIDERS: Emergency Medicine; ADMIT Internal Medicine
DX: J96.01 Acute respiratory failure with hypoxia (principal); J44.1 Chronic obstructive pulmonary disease with (acute) exacerbation; Z20.828 Contact with and (suspected) exposure to other viral communicable diseases; I10 Essential (primary) hypertension; I25.10 Atherosclerotic heart disease of native coronary artery without angina pectoris; I73.9 Peripheral vascular disease, unspecified; E78.5 Hyperlipidemia, unspecified; Z95.1 Presence of aortocoronary bypass graft; Z79.82 Long term (current) use of aspirin; Z79.52 Long term (current) use of systemic steroids; Z87.891 Personal history of nicotine dependence
CPT/HCPCS: 36415; 36600; 71045; 80048; 80053; 80076; 81001; 82728; 82803; 83605; 83615; 83880; 84145; 84484; 85025; 85610; 85730; 86141; 87804; 93005; 93010; 94640; 94667; 94760; 94762; 99285-25; A9270; A9270-GY; J1650; J2930; J7512; U0003

== ENCOUNTER 2019-09-21 11:52 | Emergency (ER) | payer MEDICARE, BC ==
[~2019-09-21] VITALS: Ht 175.3 cm; Wt 86.2 kg
[~2019-09-21 11:52] MED LIST changes: -ALBU2.5V5 INH; -Aspir 8181 MG PO; -LOVA40 PO; -Nitrostat0.3 MG SL; -PROAIR RESPICL90 MCG INH; -ZESTRIL40 M1 PO
[2019-09-21 12:41] LABS: BASOPHILS ABSOLUTE AUTO 0.02 K/mm3 (0.00-0.23); BASOPHILS PERCENT AUTO 0 % (0-2); EOSINOPHILS ABSOLUTE AUTO 0.43 K/mm3 (0.00-0.68); EOSINOPHILS PERCENT AUTO 7 % (0-6); Hematocrit 32.3 % (37.0-53.0); Hemoglobin 10.2 g/dL (13.5-17.5); IMMATURE GRAN ABSOLUTE AUTO 0.01 K/mm3 (0.00-0.10); IMMATURE GRAN PERCENT AUTO 0 % (0-1); LYMPHOCYTES PERCENT AUTO 27 % (21-46); MONOCYTES ABSOLUTE AUTO 0.74 K/mm3 (0.16-1.47); MONOCYTES PERCENT AUTO 13 % (4-13); Mean Corpuscular HGB 28.2 pg (26.0-34.0); Mean Corpuscular HGB Conc 31.6 g/dL (31.5-36.5); Mean Corpuscular Volume 89 fL (80-100); Mean Platelet Volume 9.5 fL (9.1-12.4); NEUTROPHILS ABSOLUTE AUTO 3.06 K/mm3 (1.96-9.15); NEUTROPHILS PERCENT AUTO 52 % (41-73); Platelet Count 247 K/mm3 (150-400); RDW Coefficient Variation 15.2 % (11.7-14.2); RDW Standard Deviation 49.5 fL (35.1-46.3); Red Blood Cell Count 3.62 M/mm3 (4.30-5.90); White Blood Cell Count 5.86 K/mm3 (4.00-11.30)
[2019-09-21 13:01] LABS: Alanine Aminotransfer (ALT/SGP 29 U/L (12-78); Albumin, Blood 3.6 g/dL (3.4-5.0); Albumin/Globulin Ratio 1.2 (0.8-1.8); Alk Phos 130 U/L (50-136); Anion Gap 5 mmol/L (6-16); Aspartate Aminotrans (AST/SGOT 26 U/L (12-37); Bilirubin, Total 0.3 mg/dL (0.1-1.0); Blood Urea Nitrogen 19 mg/dL (8-24); CO2, Blood 29 mmol/L (21-32); Calcium, Blood 8.8 mg/dL (8.5-10.1); Chloride, Blood 110 mmol/L (98-108); Creatinine, Blood 1.27 mg/dL (0.60-1.20); Globulin, Blood 3.1 g/dL (2.2-4.0); Glomerular Filtration Rate 58 (60-); Glucose, Blood 89 mg/dL (70-99); Sodium, Blood 144 mmol/L (136-145); Total Protein, Blood 6.7 g/dL (6.4-8.2); Troponin I <0.015 ng/mL (0.000-0.040)
[2019-09-21] MEDS ORDERED: Prednisone10 MG PO (13:22)
[2019-09-21] MEDS ORDERED: Ketoconazole15 GM TOP (13:23)
[2019-09-21] MEDS ORDERED: IBUP600 PO (13:23)
[2019-09-21] MEDS ORDERED: Prednisone20 MG PO (14:42)
[2019-09-21] MEDS ORDERED: Zithromax250 MG PO (14:42)
[2019-09-21] MEDS ORDERED: AMLO10 PO (14:45)
[2019-09-21] MEDS ORDERED: ZESTRIL40 M1 PO (14:45)
[2019-09-21] MEDS ORDERED: LOVA40 PO (14:46)
[2019-09-21] MEDS ORDERED: Aspir 8181 MG PO (14:47)
[2019-09-21] MEDS ORDERED: PANT40 PO (14:47)
[2019-09-21] MEDS ORDERED: METO25ER PO (14:47)
[2019-09-21] MEDS ORDERED: NITR.4SL SL (14:48)
[2019-09-21] MEDS ORDERED: ALBU90OI INH (14:48)
[2019-09-21] MEDS ORDERED: QVAR REDIHALE10.6 G2 INH (14:49)
[2019-09-21] MEDS ORDERED: OXYC5 PO (14:51)
[2019-09-21] MEDS ORDERED: DOCU100 PO (14:53)
== END 2019-09-21 15:50 | disposition home or self-care (01) ==
LOC: ER 11:52
PROVIDERS: Emergency Medicine
DX: J44.1 Chronic obstructive pulmonary disease with (acute) exacerbation (principal); I10 Essential (primary) hypertension; I25.10 Atherosclerotic heart disease of native coronary artery without angina pectoris; E78.5 Hyperlipidemia, unspecified; I25.810 Atherosclerosis of coronary artery bypass graft(s) without angina pectoris; Z95.1 Presence of aortocoronary bypass graft; Z79.52 Long term (current) use of systemic steroids; Z87.891 Personal history of nicotine dependence; Z79.899 Other long term (current) drug therapy
CPT/HCPCS: 36415; 71046; 80053; 83880; 84484; 85025; 93005; 93010; 94644; 99285-25; J7512

== ENCOUNTER 2019-10-19 12:08 | Emergency (ER) | payer MEDICARE, BC ==
[~2019-10-19] VITALS: Ht 172.7 cm; Wt 86.2 kg
[~2019-10-19 12:08] MED LIST changes: +ALBU90OI INH; +AMLO10 PO; +Aspir 8181 MG PO; +HYDMOR4 PO; +IBUP600 PO; +Ketoconazole15 GM TOP; +LIDO5TO TOP; +LOVA40 PO; +OXYC5 PO; +QVAR REDIHALE10.6 G2 INH; +ZESTRIL40 M1 PO
[2019-10-19] MEDS ORDERED: GABA300 PO (12:28)
[2019-10-19 13:44] LABS: BASOPHILS ABSOLUTE AUTO 0.02 K/mm3 (0.00-0.23); BASOPHILS PERCENT AUTO 0 % (0-2); EOSINOPHILS ABSOLUTE AUTO 0.18 K/mm3 (0.00-0.68); EOSINOPHILS PERCENT AUTO 3 % (0-6); Hematocrit 31.8 % (37.0-53.0); Hemoglobin 10.1 g/dL (13.5-17.5); IMMATURE GRAN ABSOLUTE AUTO 0.02 K/mm3 (0.00-0.10); IMMATURE GRAN PERCENT AUTO 0 % (0-1); LYMPHOCYTES ABSOLUTE AUTO 1.28 K/mm3 (0.84-5.20); LYMPHOCYTES PERCENT AUTO 20 % (21-46); MONOCYTES ABSOLUTE AUTO 0.53 K/mm3 (0.16-1.47); MONOCYTES PERCENT AUTO 8 % (4-13); Mean Corpuscular HGB 28.1 pg (26.0-34.0); Mean Corpuscular HGB Conc 31.8 g/dL (31.5-36.5); Mean Corpuscular Volume 88 fL (80-100); Mean Platelet Volume 10.2 fL (9.1-12.4); NEUTROPHILS ABSOLUTE AUTO 4.42 K/mm3 (1.96-9.15); NEUTROPHILS PERCENT AUTO 69 % (41-73); Platelet Count 225 K/mm3 (150-400); RDW Coefficient Variation 14.6 % (11.7-14.2); RDW Standard Deviation 47.3 fL (35.1-46.3); White Blood Cell Count 6.45 K/mm3 (4.00-11.30)
[2019-10-19 14:04] LABS: Alanine Aminotransfer (ALT/SGP 29 U/L (12-78); Albumin, Blood 3.2 g/dL (3.4-5.0); Albumin/Globulin Ratio 0.9 (0.8-1.8); Alk Phos 82 U/L (50-136); Anion Gap 7 mmol/L (6-16); Aspartate Aminotrans (AST/SGOT 24 U/L (12-37); Bilirubin, Total 0.4 mg/dL (0.1-1.0); Blood Urea Nitrogen 33 mg/dL (8-24); Bun/Creatinine Ratio 27.7 (12.0-20.0); CO2, Blood 24 mmol/L (21-32); CPK Creatine Kinase 566 U/L (39-308); Calcium, Blood 8.6 mg/dL (8.5-10.1); Chloride, Blood 113 mmol/L (98-108); Creatine Kinase MB 1.1 ng/mL (0.0-3.6); Creatine Kinase MB Index 0.2 (0.0-4.0); Creatinine, Blood 1.19 mg/dL (0.60-1.20); Globulin, Blood 3.5 g/dL (2.2-4.0); Glomerular Filtration Rate >60 (60-); Glucose, Blood 101 mg/dL (70-99); Potassium, Blood 3.5 mmol/L (3.5-5.5); Sodium, Blood 144 mmol/L (136-145); Total Protein, Blood 6.7 g/dL (6.4-8.2)
[2019-10-19] MEDS ORDERED: KEFLEX500 MG PO (16:08)
== END 2019-10-19 16:20 | disposition home or self-care (01) ==
LOC: ER 12:08
PROVIDERS: Emergency Medicine
DX: L03.113 Cellulitis of right upper limb (principal); Z79.899 Other long term (current) drug therapy; I10 Essential (primary) hypertension; I25.2 Old myocardial infarction; J44.9 Chronic obstructive pulmonary disease, unspecified; E78.5 Hyperlipidemia, unspecified; I73.9 Peripheral vascular disease, unspecified; Z87.891 Personal history of nicotine dependence
CPT/HCPCS: 36415; 73080; 80053; 82550; 82553; 85025; 85651; 86140; 96374; 99283-25; J2270

== ENCOUNTER 2019-11-01 00:30 | Day surgery (SDC) | payer MEDICARE, BC ==
[~2019-11-01 00:30] MED LIST changes: +GABA300 PO; +KEFLEX500 MG PO
== END 2019-11-01 12:00 | disposition home or self-care (01) ==
LOC: WOUND 00:30
DX: S51.001D Unspecified open wound of right elbow, subsequent encounter (principal); M60.821 Other myositis, right upper arm; J44.9 Chronic obstructive pulmonary disease, unspecified; I10 Essential (primary) hypertension; E78.5 Hyperlipidemia, unspecified; I25.2 Old myocardial infarction; Z87.891 Personal history of nicotine dependence; Z79.899 Other long term (current) drug therapy
CPT/HCPCS: G0463

== ENCOUNTER 2019-11-08 00:39 | Day surgery (SDC) | payer MEDICARE, BC | END 2019-11-08 22:50 | disposition home or self-care (01) | LOC: WOUND 00:39 | DX: S51.001D Unspecified open wound of right elbow, subsequent encounter (principal); M60.821 Other myositis, right upper arm; J44.9 Chronic obstructive pulmonary disease, unspecified; I25.2 Old myocardial infarction; E78.5 Hyperlipidemia, unspecified; I10 Essential (primary) hypertension; Z79.899 Other long term (current) drug therapy; Z79.82 Long term (current) use of aspirin | CPT/HCPCS: G0463 ==

== ENCOUNTER 2020-01-22 14:01 | Emergency (ER) | payer MEDICARE, BC ==
[~2020-01-22] VITALS: Ht 172.7 cm; Wt 86.2 kg
[2020-01-22 14:54] LABS: BASOPHILS ABSOLUTE AUTO 0.03 K/mm3 (0.00-0.23); BASOPHILS PERCENT AUTO 0 % (0-2); EOSINOPHILS ABSOLUTE AUTO 0.06 K/mm3 (0.00-0.68); EOSINOPHILS PERCENT AUTO 0 % (0-6); Hemoglobin 11.3 g/dL (13.5-17.5); IMMATURE GRAN ABSOLUTE AUTO 0.06 K/mm3 (0.00-0.10); IMMATURE GRAN PERCENT AUTO 0 % (0-1); LYMPHOCYTES ABSOLUTE AUTO 2.62 K/mm3 (0.84-5.20); LYMPHOCYTES PERCENT AUTO 19 % (21-46); MONOCYTES ABSOLUTE AUTO 1.11 K/mm3 (0.16-1.47); MONOCYTES PERCENT AUTO 8 % (4-13); Mean Corpuscular HGB Conc 31.4 g/dL (31.5-36.5); Mean Corpuscular Volume 89 fL (80-100); Mean Platelet Volume 9.6 fL (9.1-12.4); NEUTROPHILS ABSOLUTE AUTO 9.69 K/mm3 (1.96-9.15); NEUTROPHILS PERCENT AUTO 72 % (41-73); Platelet Count 280 K/mm3 (150-400); RDW Coefficient Variation 15.7 % (11.7-14.2); RDW Standard Deviation 51.8 fL (35.1-46.3); Red Blood Cell Count 4.03 M/mm3 (4.30-5.90); White Blood Cell Count 13.57 K/mm3 (4.00-11.30)
[2020-01-22 15:17] LABS: Albumin, Blood 3.6 g/dL (3.4-5.0); Bilirubin, Total 0.3 mg/dL (0.1-1.0); Bun/Creatinine Ratio 13.8 (12.0-20.0); Calcium, Blood 9.2 mg/dL (8.5-10.1); Creatinine, Blood 1.3 mg/dL (0.60-1.20); Globulin, Blood 3.5 g/dL (2.2-4.0); Potassium, Blood 4.7 mmol/L (3.5-5.5); Total Protein, Blood 7.1 g/dL (6.4-8.2)
[2020-01-22] MEDS ORDERED: CEPH500 PO (19:31)
[2020-01-22] MEDS ORDERED: Bactrim Ds Tab1 EACH PO (19:31)
== END 2020-01-22 19:57 | disposition home or self-care (01) ==
LOC: ER 14:01
PROVIDERS: Physician Assistant
DX: L03.113 Cellulitis of right upper limb (principal); J44.9 Chronic obstructive pulmonary disease, unspecified; I10 Essential (primary) hypertension; E78.5 Hyperlipidemia, unspecified; I25.810 Atherosclerosis of coronary artery bypass graft(s) without angina pectoris; Z95.1 Presence of aortocoronary bypass graft; Z87.891 Personal history of nicotine dependence
CPT/HCPCS: 36415; 80053; 85025; 93971; 99284-25; A9270-GY

== ENCOUNTER 2020-02-03 00:20 | Day surgery (SDC) | payer MEDICARE, BC ==
[~2020-02-03 00:20] MED LIST changes: +Bactrim Ds Tab1 EACH PO
== END 2020-02-03 22:57 | disposition home or self-care (01) ==
LOC: WOUND 00:20
DX: L03.113 Cellulitis of right upper limb (principal); I96 Gangrene, not elsewhere classified; M60.821 Other myositis, right upper arm; I10 Essential (primary) hypertension; I25.10 Atherosclerotic heart disease of native coronary artery without angina pectoris; I25.2 Old myocardial infarction; I48.91 Unspecified atrial fibrillation; E78.5 Hyperlipidemia, unspecified; J44.9 Chronic obstructive pulmonary disease, unspecified; D64.9 Anemia, unspecified; H26.9 Unspecified cataract; I49.9 Cardiac arrhythmia, unspecified; Z79.82 Long term (current) use of aspirin; Z79.51 Long term (current) use of inhaled steroids; Z79.52 Long term (current) use of systemic steroids; Z79.899 Other long term (current) drug therapy; Z20.828 Contact with and (suspected) exposure to other viral communicable diseases; Z99.81 Dependence on supplemental oxygen; Z95.1 Presence of aortocoronary bypass graft; Z87.891 Personal history of nicotine dependence
CPT/HCPCS: G0463

== ENCOUNTER 2020-02-12 12:58 | Inpatient (IN) | payer MEDICARE, BC ==
[~2020-02-12] VITALS: Ht 172.7 cm; Wt 83.9 kg
[~2020-02-12 12:58] MED LIST changes: -ALBU90OI INH; -AMLO10 PO; -Aspir 8181 MG PO; -LOVA40 PO; -QVAR REDIHALE10.6 G2 INH; -ZESTRIL40 M1 PO
[2020-02-12 13:30] LABS: BASOPHILS ABSOLUTE AUTO 0.03 K/mm3 (0.00-0.23); BASOPHILS PERCENT AUTO 0 % (0-2); EOSINOPHILS PERCENT AUTO 0 % (0-6); Hemoglobin 12.9 g/dL (13.5-17.5); IMMATURE GRAN ABSOLUTE AUTO 0.07 K/mm3 (0.00-0.10); IMMATURE GRAN PERCENT AUTO 1 % (0-1); LYMPHOCYTES ABSOLUTE AUTO 2.25 K/mm3 (0.84-5.20); LYMPHOCYTES PERCENT AUTO 21 % (21-46); MONOCYTES ABSOLUTE AUTO 0.79 K/mm3 (0.16-1.47); MONOCYTES PERCENT AUTO 7 % (4-13); Mean Corpuscular HGB 27.7 pg (26.0-34.0); Mean Corpuscular HGB Conc 31.5 g/dL (31.5-36.5); Mean Corpuscular Volume 88 fL (80-100); Mean Platelet Volume 9.8 fL (9.1-12.4); NEUTROPHILS ABSOLUTE AUTO 7.47 K/mm3 (1.96-9.15); NEUTROPHILS PERCENT AUTO 70 % (41-73); Platelet Count 390 K/mm3 (150-400); RDW Coefficient Variation 15.1 % (11.7-14.2); RDW Standard Deviation 49.1 fL (35.1-46.3); Red Blood Cell Count 4.66 M/mm3 (4.30-5.90); White Blood Cell Count 10.61 K/mm3 (4.00-11.30)
[2020-02-12 13:52] LABS: Albumin, Blood 3.7 g/dL (3.4-5.0); Albumin/Globulin Ratio 0.9 (0.8-1.8); Bilirubin, Total 0.5 mg/dL (0.1-1.0); Bun/Creatinine Ratio 25.9 (12.0-20.0); Calcium, Blood 9.3 mg/dL (8.5-10.1); Creatinine, Blood 1.58 mg/dL (0.60-1.20); Globulin, Blood 4.1 g/dL (2.2-4.0); Potassium, Blood 4.2 mmol/L (3.5-5.5); Total Protein, Blood 7.8 g/dL (6.4-8.2)
[2020-02-12] MEDS ORDERED: QVAR REDIHALE10.6 G2 INH (13:53)
[2020-02-12] MEDS ORDERED: ALBU2.5V5 NEB (13:53)
[2020-02-12] MEDS ORDERED: ALBU90OI INH (13:53)
[2020-02-12] MEDS ORDERED: METO25ER PO (13:54)
[2020-02-12] MEDS ORDERED: ZESTRIL40 M1 PO (13:54)
[2020-02-12] MEDS ORDERED: LOVA40 PO (13:54)
[2020-02-12] MEDS ORDERED: NITR.4SL SL (13:54)
[2020-02-12] MEDS ORDERED: Aspir 8181 MG PO (13:54)
[2020-02-12] MEDS ORDERED: PANT40 PO (13:54)
[2020-02-12] MEDS ORDERED: DOCU100 PO (13:55)
[2020-02-12] MEDS ORDERED: AMLO10 PO (13:55)
[2020-02-12 18:32] LABS: Hematocrit 33.5 % (37.0-53.0); Hemoglobin 10.9 g/dL (13.5-17.5)
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
[2020-02-12 20:14] LABS: Influenza A, PCR Negative (NEGATIVE); Influenza B, PCR Negative (NEGATIVE); Resp Syncytial Virus, PCR Negative (NEGATIVE); SARS-Cov-2 (COVID-19) PCR, MMC Negative (NEGATIVE)
[2020-02-12 22:41] LABS: Source, Urine Clean Catch
[2020-02-12 22:44] LABS: Bilirubin, Urine Neg (Neg); Blood, Urine 1+ (Neg); Glucose Qualitative, Urine Neg (Neg); Ketones, Urine Neg (Neg); Leukocyte Esterase, Urine 1+ (Neg); Nitrite, Urine Neg (Neg); Protein, Urine 2+ (Neg); Urobilinogen, Urine NORM (Normal)
[2020-02-12 22:50] LABS: Color, Urine Yellow (P-Yellow)
[2020-02-12 22:51] LABS: Amorphous Light (0-Heavy); Appearance, Urine Hazy (Clear); Bacteria Few /hpf; Mucus Light (0-Heavy); Red Blood Cells, Urine 0-2 /hpf (0-2); Squamous Epithelial Cells Rare /hpf (Few)
[2020-02-13 03:58] LABS: BASOPHILS ABSOLUTE AUTO 0.01 K/mm3 (0.00-0.23); BASOPHILS PERCENT AUTO 0 % (0-2); EOSINOPHILS ABSOLUTE AUTO 0.01 K/mm3 (0.00-0.68); EOSINOPHILS PERCENT AUTO 0 % (0-6); Hematocrit 31.2 % (37.0-53.0); IMMATURE GRAN ABSOLUTE AUTO 0.03 K/mm3 (0.00-0.10); IMMATURE GRAN PERCENT AUTO 1 % (0-1); LYMPHOCYTES ABSOLUTE AUTO 1.78 K/mm3 (0.84-5.20); LYMPHOCYTES PERCENT AUTO 27 % (21-46); MONOCYTES ABSOLUTE AUTO 0.65 K/mm3 (0.16-1.47); MONOCYTES PERCENT AUTO 10 % (4-13); Mean Corpuscular HGB 28.3 pg (26.0-34.0); Mean Corpuscular HGB Conc 32.1 g/dL (31.5-36.5); Mean Corpuscular Volume 88 fL (80-100); NEUTROPHILS ABSOLUTE AUTO 4.05 K/mm3 (1.96-9.15); NEUTROPHILS PERCENT AUTO 62 % (41-73); Platelet Count 260 K/mm3 (150-400); RDW Coefficient Variation 15.2 % (11.7-14.2); RDW Standard Deviation 49.3 fL (35.1-46.3); Red Blood Cell Count 3.53 M/mm3 (4.30-5.90); White Blood Cell Count 6.53 K/mm3 (4.00-11.30)
[2020-02-13 04:13] LABS: Bun/Creatinine Ratio 31.7 (12.0-20.0); Calcium, Blood 8.3 mg/dL (8.5-10.1); Creatinine, Blood 1.26 mg/dL (0.60-1.20); Potassium, Blood 4.3 mmol/L (3.5-5.5)
--- NOTE | 2020-02-13 06:17 | NUR ---
SHIFT SUMMARY: VSS. TEMP 99.0. HGB 10.0. NSR 72 PER TELE SACK FILLER. CONT PROTONIX INFUSION PER ORDERS. PT REPORTS "BURNING STOMACH", DEVELOPING AFTER DINNER AND STARTING TO LIGHTEN UP BY HS. DENIES N/V. NO STOOL PRODUCED TONIGHT. ABD SOFT, TENDER AND GUARDING LUQ. PT RECEIVING SIPS AND CHIPS ONLY IN PREPARATION FOR EGD TODAY. WILL CONT TO MONITOR.
--- NOTE | 2020-02-13 12:09 | NUR ---
PT STATES THAT HE HAD AN APPT WITH THE WOUND CLINIC FOR HIS RIGHT ELBOW WOUND VAC. HE IS CONCERNED BECAUSE HE MISSED HIS APPT D/T FEELING ILL. PT'S FAMILY MEMBER DROPPED OFF HIS WOUND VAC SUPPLIES AND THIS RN IS ATTEMPTING TO REACH STAFF AT THE W[facility] CLIN[facility] EXT 4501 FOR FURTHER GUIDANCE. WOUND VAC APPEARS TO BE FUNCTIONING CORRECTLY AT THIS TIME, NO AIR LEAKS OR ALARMS ON MACHINE. WILL CONTINUE TO MONITOR AND TRY TO REACH STAFF AT WOUND CLINIC.
--- NOTE | 2020-02-13 15:01 | NUR ---
PT TO EGD ON [facility] WITH STAFF. IVF STOPPED AND IV SALINE LOCKED BY DAY SURG STAFF.
--- NOTE | 2020-02-13 15:48 | NUR ---
02/13/20 1548 YONY SAAVEDRA History, Chart, Medications and Allergies reviewed before start of procedure. 3-LEAD EKG REVIEWED WITH PHYSICIAN PRIOR TO START OF PROCEDURE. O2 VIA N/C INTACT THROUGHOUT SEDATION/PROCEDURE. MONITOR INTACT WITH CONTINUOUS PULSE OXIMETRY AND INTERMITTENT BP. PATIENT DETERMINED TO BE ASA APPROPRIATE FOR PROPOFOL SEDATION PRIOR TO START OF PROCEDURE BY DR. GUERRERO
--- NOTE | 2020-02-13 16:47 | NUR ---
PT RETURNED FROM DAY SUGERY ENDOSCOPY. PT AWAKE AND ALERT, ABLE TO STAND AND TRANSFER TO HOSPITAL BED. PER REPORT, PT WAS GIVEN 300MG OF PROPOFOL AND THERE WERE NO MAJOR FINDINGS FROM EGD. DR AT BEDSIDE TO EXPLAIN RESULTS TO PT AND DISCUSSED OPTIONS FOR OUTPT FOLLOW UP SUCH UPPER/LOWER ENDOSCOPIES AND CAPSULE ENDOSCOPY AN OUT PT AT A LATER DATE. VSS AT THIS TIME AND PT WAS ORDERED A MEAL TRAY PER MD ORDERS. CALL LIGHT AND BELONGINGS AT BEDSIDE, PT STATES NO FURTHER NEEDS AT THIS TIME.
[2020-02-14 04:04] LABS: Hematocrit 29.9 % (37.0-53.0); Hemoglobin 9.6 g/dL (13.5-17.5); Mean Corpuscular HGB 28.1 pg (26.0-34.0); Mean Corpuscular HGB Conc 32.1 g/dL (31.5-36.5); Mean Corpuscular Volume 87 fL (80-100); Mean Platelet Volume 9.7 fL (9.1-12.4); Platelet Count 245 K/mm3 (150-400); RDW Coefficient Variation 14.8 % (11.7-14.2); RDW Standard Deviation 47.8 fL (35.1-46.3); Red Blood Cell Count 3.42 M/mm3 (4.30-5.90); White Blood Cell Count 8.04 K/mm3 (4.00-11.30)
[2020-02-14 04:27] LABS: Anion Gap 7 mmol/L (6-16); Blood Urea Nitrogen 29 mg/dL (8-24); Bun/Creatinine Ratio 24.2 (12.0-20.0); CO2, Blood 23 mmol/L (21-32); Calcium, Blood 8.1 mg/dL (8.5-10.1); Chloride, Blood 111 mmol/L (98-108); Glomerular Filtration Rate >60 (60-); Glucose, Blood 79 mg/dL (70-99); Potassium, Blood 3.9 mmol/L (3.5-5.5); Sodium, Blood 141 mmol/L (136-145)
--- NOTE | 2020-02-14 04:51 | NUR ---
CALL TO HOSPITALIST / LOWER ABD PAIN PT REPORTING RLQ AND LLQ ABD PAIN 8/, DESCRIBES PAIN "BURNING", DOES NOT RADIATE. STATES THAT IT STARTED AFTER DINNER AND HAS SLOWLY GOTTEN WORSE. IMPROVED SOME W/ ZOFRAN. PT ATTEMPTED TO HAVE A BM WITHOUT SUCCESS. REPORTING NAUSEA WITHOUT EMESIS. ORDER RECEIVED FOR FENTANYL PRN IV. NOTED.
--- NOTE | 2020-02-14 05:20 | NUR ---
SHIFT SUMMARY: VSS. TEMPS IN THE '. AAOX3. SOME FORGETFULNESS RE: HEALTH HISTORY. LOWER ABD PAIN IMPROVED TO A TOLERABLE PAIN LEVEL W/ PRN FENTANYL. ZOFRAN EFFECTIVELY REDUCED NAUSEA. NO BM PRODUCED TONIGHT. ABD SOFT, TENDER IN LOWER QUADS W/ PALPATION, NON-DISTENDED. BT ACTIVE X 4. WILL CONT TO MONITOR.
--- NOTE | 2020-02-14 08:20 | NUR ---
PT PLEASANT COOP A/O. STATES [employer] [facility] IN PAST. STATES SOME PAIN IN ABD. LOWER. NO BM COUPLE DAYS PER PT. GAVE MIRALAX AND BROWN COW. H/DR NEIL, NO MURMER NOTED. PER TELE NSR AT 72. LUNGS CLEAR, RESP EASY UNLABORED. ON R.A. BT HYPO ON LOW LEFT. VOIDS PER URINAL AND SBA TO BATHROOM. PT STATES WANTS TO GO HOME TODAY IF ABD IMPROVES. BED IN LOW POSITION, CALL LITE IN REACH, CALLS APPROP
--- NOTE | 2020-02-14 08:30 | NUR ---
PT PLEASSANT COOP A/O. TALKATIVE. STATE
[2020-02-14] MEDS ORDERED: ASPI81CH PO (16:20)
--- NOTE | 2020-02-14 17:20 | NUR ---
DISCHARGE REVIEWED WITH PT. HE VERBALIZED UNDERSTANDING MEDS AND INST. IV PULLED INTACT. TELE REMOVED AND RETURNED. PT TO DRESS SELF. PEND DAUGHTER TO LOG MANAGER SHORTLY. SPOKE TO DR ADAMSON RE SLIGHT RAISE IN BP . OK TO D/C. HAS OWN BP MEDS PER SCHEDULE.
--- NOTE | 2020-02-14 17:39 | NUR ---
PT WHEELED TO DOOR BY CHADD AT 6228
== END 2020-02-14 17:30 | disposition home or self-care (01) | DRG 378 ==
LOC: ER 12:58 → PCU 16:03
PROVIDERS: Internal Medicine Gastroenterology; Physician Assistant; ADMIT Internal Medicine
PROC: 0DJ08ZZ Inspection of Upper Intestinal Tract, Via Natural or Artificial Opening Endoscopic (ICD-10-PCS; principal; 2020-02-13 15:30)
DX: K25.4 Chronic or unspecified gastric ulcer with hemorrhage (principal); N17.9 Acute kidney failure, unspecified; K22.70 Barrett's esophagus without dysplasia; Z20.822 Contact with and (suspected) exposure to COVID-19; K44.9 Diaphragmatic hernia without obstruction or gangrene; T39.015A Adverse effect of aspirin, initial encounter; F10.11 Alcohol abuse, in remission; K59.09 Other constipation; I25.10 Atherosclerotic heart disease of native coronary artery without angina pectoris; J44.9 Chronic obstructive pulmonary disease, unspecified; I10 Essential (primary) hypertension; E78.5 Hyperlipidemia, unspecified; M60.9 Myositis, unspecified; M25.521 Pain in right elbow; G89.29 Other chronic pain; D64.9 Anemia, unspecified; I73.9 Peripheral vascular disease, unspecified; I25.2 Old myocardial infarction; Z95.1 Presence of aortocoronary bypass graft; Z87.891 Personal history of nicotine dependence; Z79.899 Other long term (current) drug therapy; Z79.82 Long term (current) use of aspirin; Z79.891 Long term (current) use of opiate analgesic; Z79.51 Long term (current) use of inhaled steroids; Z79.52 Long term (current) use of systemic steroids
CPT/HCPCS: 0241U; 36415; 74022; 80048; 80053; 81001; 83690; 85014; 85018; 85025; 85027; 85730; 86850; 86900; 86901; 93005; 93010; 94640; 94760; 96365; 96366; 96375; 96376; 99285-25; A9270; C9113; J2250; J2405; J2704; J3010; J7030; J7120

== ENCOUNTER 2020-02-21 02:03 | Day surgery (SDC) | payer MEDICARE, BC ==
[~2020-02-21 02:03] MED LIST changes: +ALBU90OI INH; +AMLO10 PO; +Aspir 8181 MG PO; +LOVA40 PO; +QVAR REDIHALE10.6 G2 INH; +ZESTRIL40 M1 PO
== END 2020-02-21 23:44 | disposition home or self-care (01) ==
LOC: WOUND 02:03
DX: S51.001D Unspecified open wound of right elbow, subsequent encounter (principal); M60.821 Other myositis, right upper arm; X58.XXXD Exposure to other specified factors, subsequent encounter

== ENCOUNTER 2020-04-20 00:14 | Day surgery (SDC) | payer MEDICARE, BC | END 2020-04-20 22:57 | disposition home or self-care (01) | LOC: WOUND 00:14 | DX: L98.492 Non-pressure chronic ulcer of skin of other sites with fat layer exposed (principal); M60.821 Other myositis, right upper arm; I25.10 Atherosclerotic heart disease of native coronary artery without angina pectoris; I25.2 Old myocardial infarction; I10 Essential (primary) hypertension; E78.5 Hyperlipidemia, unspecified; I48.91 Unspecified atrial fibrillation; J44.9 Chronic obstructive pulmonary disease, unspecified; Z87.891 Personal history of nicotine dependence; Z95.1 Presence of aortocoronary bypass graft; Z99.81 Dependence on supplemental oxygen | CPT/HCPCS: A9270; G0463 ==

== ENCOUNTER → 2020-04-22 | Outpatient (CLI) | payer MEDICARE, BC ==
[~2020-04-22] MED LIST changes: +AMOCLA875 PO; +LACT PO; +ONDA4ODT MM; +TAMS.4ER PO
[2020-04-22 20:07] LABS: Alanine Aminotransfer (ALT/SGP 56 U/L (12-78); Albumin, Blood 3.7 g/dL (3.4-5.0); Albumin/Globulin Ratio 1.2 (0.8-1.8); Alk Phos 114 U/L (50-136); Anion Gap 4 mmol/L (6-16); Aspartate Aminotrans (AST/SGOT 31 U/L (12-37); Bilirubin, Total 0.3 mg/dL (0.1-1.0); Blood Urea Nitrogen 26 mg/dL (8-24); Bun/Creatinine Ratio 22.8 (12.0-20.0); CO2, Blood 30 mmol/L (21-32); Calcium, Blood 9.5 mg/dL (8.5-10.1); Chloride, Blood 107 mmol/L (98-108); Creatinine, Blood 1.14 mg/dL (0.60-1.20); Globulin, Blood 3.2 g/dL (2.2-4.0); Glomerular Filtration Rate >60 (60-); Glucose, Blood 78 mg/dL (70-99); Potassium, Blood 4.5 mmol/L (3.5-5.5); Sodium, Blood 141 mmol/L (136-145); Total Protein, Blood 6.9 g/dL (6.4-8.2)
== END ==
LOC: LAB SHORT 13:45 → LAB 13:45
PROVIDERS: Nurse Practitioner Family
DX: S51.001D Unspecified open wound of right elbow, subsequent encounter (principal); M60.821 Other myositis, right upper arm; L98.499 Non-pressure chronic ulcer of skin of other sites with unspecified severity
CPT/HCPCS: 80053

== ENCOUNTER 2020-04-27 00:42 | Day surgery (SDC) | payer MEDICARE, BC ==
[~2020-04-27 00:42] MED LIST changes: -AMOCLA875 PO; -LACT PO; -ONDA4ODT MM; -TAMS.4ER PO
== END 2020-04-27 22:55 | disposition home or self-care (01) ==
LOC: WOUND 00:42
DX: L98.492 Non-pressure chronic ulcer of skin of other sites with fat layer exposed (principal); K56.2 Volvulus; K57.92 Diverticulitis of intestine, part unspecified, without perforation or abscess without bleeding; K22.70 Barrett's esophagus without dysplasia; I25.10 Atherosclerotic heart disease of native coronary artery without angina pectoris; I25.2 Old myocardial infarction; I48.91 Unspecified atrial fibrillation; I10 Essential (primary) hypertension; E78.5 Hyperlipidemia, unspecified; J44.9 Chronic obstructive pulmonary disease, unspecified; Z99.81 Dependence on supplemental oxygen; Z95.1 Presence of aortocoronary bypass graft
CPT/HCPCS: A9270

== ENCOUNTER 2020-05-04 02:19 | Day surgery (SDC) | payer MEDICARE, BC | END 2020-05-04 22:57 | disposition home or self-care (01) | LOC: WOUND 02:19 | DX: L98.499 Non-pressure chronic ulcer of skin of other sites with unspecified severity (principal); M60.821 Other myositis, right upper arm; I25.2 Old myocardial infarction; Z95.1 Presence of aortocoronary bypass graft; I25.10 Atherosclerotic heart disease of native coronary artery without angina pectoris; I48.91 Unspecified atrial fibrillation; I10 Essential (primary) hypertension; E78.5 Hyperlipidemia, unspecified; J44.9 Chronic obstructive pulmonary disease, unspecified | CPT/HCPCS: A9270 ==

== ENCOUNTER 2020-05-11 00:20 | Day surgery (SDC) | payer MEDICARE, BC | END 2020-05-11 22:48 | disposition home or self-care (01) | LOC: WOUND 00:20 | DX: L98.492 Non-pressure chronic ulcer of skin of other sites with fat layer exposed (principal); M60.821 Other myositis, right upper arm; I25.10 Atherosclerotic heart disease of native coronary artery without angina pectoris; I25.2 Old myocardial infarction; I48.91 Unspecified atrial fibrillation; I10 Essential (primary) hypertension; E78.5 Hyperlipidemia, unspecified; J44.9 Chronic obstructive pulmonary disease, unspecified; Z99.81 Dependence on supplemental oxygen; Z95.1 Presence of aortocoronary bypass graft | CPT/HCPCS: A9270 ==

== ENCOUNTER 2020-05-18 00:46 | Day surgery (SDC) | payer MEDICARE, BC | END 2020-05-18 22:46 | disposition home or self-care (01) | LOC: WOUND 00:46 | DX: L98.499 Non-pressure chronic ulcer of skin of other sites with unspecified severity (principal); M60.821 Other myositis, right upper arm; I48.91 Unspecified atrial fibrillation; Z95.1 Presence of aortocoronary bypass graft; I10 Essential (primary) hypertension; E78.5 Hyperlipidemia, unspecified; J44.9 Chronic obstructive pulmonary disease, unspecified | CPT/HCPCS: A9270 ==

== ENCOUNTER 2020-05-25 00:25 | Day surgery (SDC) | payer MEDICARE, BC | END 2020-05-25 22:37 | disposition home or self-care (01) | LOC: WOUND 00:25 | DX: L98.492 Non-pressure chronic ulcer of skin of other sites with fat layer exposed (principal); M60.821 Other myositis, right upper arm; I48.91 Unspecified atrial fibrillation; I10 Essential (primary) hypertension; I25.10 Atherosclerotic heart disease of native coronary artery without angina pectoris; E78.5 Hyperlipidemia, unspecified; J44.9 Chronic obstructive pulmonary disease, unspecified; I25.2 Old myocardial infarction; K22.70 Barrett's esophagus without dysplasia; Z99.81 Dependence on supplemental oxygen; Z79.82 Long term (current) use of aspirin; Z95.1 Presence of aortocoronary bypass graft | CPT/HCPCS: A9270 ==

== ENCOUNTER 2020-06-01 00:13 | Day surgery (SDC) | payer MEDICARE, BC | END 2020-06-01 23:01 | disposition home or self-care (01) | LOC: WOUND 00:13 | DX: L98.492 Non-pressure chronic ulcer of skin of other sites with fat layer exposed (principal); M25.621 Stiffness of right elbow, not elsewhere classified; M60.821 Other myositis, right upper arm; I25.10 Atherosclerotic heart disease of native coronary artery without angina pectoris; I25.2 Old myocardial infarction; Z95.1 Presence of aortocoronary bypass graft; I48.91 Unspecified atrial fibrillation; I10 Essential (primary) hypertension; E78.5 Hyperlipidemia, unspecified; J44.9 Chronic obstructive pulmonary disease, unspecified | CPT/HCPCS: A9270 ==

== ENCOUNTER 2020-06-15 00:05 | Day surgery (SDC) | payer MEDICARE, BC | END 2020-06-15 22:45 | disposition home or self-care (01) | LOC: WOUND 00:05 | DX: S51.001A Unspecified open wound of right elbow, initial encounter (principal); X58.XXXA Exposure to other specified factors, initial encounter; L98.499 Non-pressure chronic ulcer of skin of other sites with unspecified severity; M25.621 Stiffness of right elbow, not elsewhere classified; M60.821 Other myositis, right upper arm; I25.10 Atherosclerotic heart disease of native coronary artery without angina pectoris; I25.2 Old myocardial infarction; Z95.1 Presence of aortocoronary bypass graft; I48.91 Unspecified atrial fibrillation; I10 Essential (primary) hypertension; E78.5 Hyperlipidemia, unspecified; J44.9 Chronic obstructive pulmonary disease, unspecified | CPT/HCPCS: A9270 ==

== ENCOUNTER 2020-06-22 00:11 | Day surgery (SDC) | payer MEDICARE, BC | END 2020-06-22 22:49 | disposition home or self-care (01) | LOC: WOUND 00:11 | DX: L98.499 Non-pressure chronic ulcer of skin of other sites with unspecified severity (principal); M25.621 Stiffness of right elbow, not elsewhere classified; M60.821 Other myositis, right upper arm; I25.10 Atherosclerotic heart disease of native coronary artery without angina pectoris; I25.2 Old myocardial infarction; Z95.1 Presence of aortocoronary bypass graft; I48.91 Unspecified atrial fibrillation; I10 Essential (primary) hypertension; E78.5 Hyperlipidemia, unspecified; J44.9 Chronic obstructive pulmonary disease, unspecified | CPT/HCPCS: A9270 ==

== ENCOUNTER 2020-07-01 05:23 | Inpatient (IN) | payer MEDICARE, BC ==
[~2020-07-01] VITALS: Ht 175.3 cm; Wt 86.2 kg
[2020-07-01 06:02] LABS: BASOPHILS ABSOLUTE AUTO 0.04 K/mm3 (0.00-0.23); BASOPHILS PERCENT AUTO 0 % (0-2); EOSINOPHILS ABSOLUTE AUTO 0.23 K/mm3 (0.00-0.68); EOSINOPHILS PERCENT AUTO 1 % (0-6); Hemoglobin 12.4 g/dL (13.5-17.5); IMMATURE GRAN ABSOLUTE AUTO 0.05 K/mm3 (0.00-0.10); IMMATURE GRAN PERCENT AUTO 0 % (0-1); LYMPHOCYTES PERCENT AUTO 14 % (21-46); MONOCYTES ABSOLUTE AUTO 1.16 K/mm3 (0.16-1.47); MONOCYTES PERCENT AUTO 7 % (4-13); Mean Corpuscular HGB 29.7 pg (26.0-34.0); Mean Corpuscular HGB Conc 33.5 g/dL (31.5-36.5); Mean Corpuscular Volume 89 fL (80-100); Mean Platelet Volume 10.1 fL (9.1-12.4); NEUTROPHILS ABSOLUTE AUTO 12.21 K/mm3 (1.96-9.15); NEUTROPHILS PERCENT AUTO 77 % (41-73); Platelet Count 274 K/mm3 (150-400); RDW Coefficient Variation 13.8 % (11.7-14.2); RDW Standard Deviation 44.5 fL (35.1-46.3); Red Blood Cell Count 4.17 M/mm3 (4.30-5.90); White Blood Cell Count 15.89 K/mm3 (4.00-11.30)
[2020-07-01] MEDS ORDERED: TAMS.4ER PO (06:08)
[2020-07-01 06:23] LABS: Alanine Aminotransfer (ALT/SGP 23 U/L (12-78); Albumin, Blood 4.1 g/dL (3.4-5.0); Albumin/Globulin Ratio 1.1 (0.8-1.8); Alk Phos 108 U/L (50-136); Anion Gap 9 mmol/L (6-16); Aspartate Aminotrans (AST/SGOT 16 U/L (12-37); Bilirubin, Total 0.4 mg/dL (0.1-1.0); Blood Urea Nitrogen 29 mg/dL (8-24); Bun/Creatinine Ratio 20.3 (12.0-20.0); CO2, Blood 22 mmol/L (21-32); Calcium, Blood 9.1 mg/dL (8.5-10.1); Chloride, Blood 112 mmol/L (98-108); Creatinine, Blood 1.43 mg/dL (0.60-1.20); Globulin, Blood 3.6 g/dL (2.2-4.0); Glomerular Filtration Rate 50 (60-); Glucose, Blood 119 mg/dL (70-99); Sodium, Blood 143 mmol/L (136-145); Total Protein, Blood 7.7 g/dL (6.4-8.2); Troponin I <0.015 ng/mL (0.000-0.040)
--- NOTE | 2020-07-01 10:00 | NUR ---
PT ARRIVED TO ROOM 305 VIA GURNEY FROM ED AT 0930. ABLE TO AMBULATE FROM HALLWAY TO ROOM BUT WAS QUITE SOB WITH THE EXERTION. TOOK SEVERAL MINUTES TO RECOVER. ABLE TO ANSWER QUESTIONS APPROPRIATELY. IS FOND DU LAC. STATES HE HAS HAD PNEUMONIA SEVERAL TIMES HE REPORTS.
--- NOTE | 2020-07-01 18:47 | NUR ---
SHIFT SUMMARY PT HAS BEEN TO BATHROOM WITH 1 PERSON ASSIST DUE TO DYSPNEA ON EXERTION AND IV POLE/PUMP. STEADY ON HIS FEET WHEN UP. RECOVERY IMPROVED FROM WHEN FIRST ARRIVED TO ROOM AFTER ACTIVITY. DRESSING CHANGED TO R ELBOW. NO RESP DISTRESS NOTED THROUGH THE DAY. ON 2L/M PER NC.
[2020-07-01 23:33] LABS: Source, Urine Catheter
[2020-07-01 23:37] LABS: Bilirubin, Urine Neg (Neg); Blood, Urine 2+ (Neg); Glucose Qualitative, Urine Neg (Neg); Ketones, Urine 1+ (Neg); Leukocyte Esterase, Urine 1+ (Neg); Nitrite, Urine Neg (Neg); Protein, Urine 1+ (Neg); Urobilinogen, Urine NORM (Normal)
[2020-07-01 23:39] LABS: Appearance, Urine Clear (Clear); Color, Urine Yellow (P-Yellow)
[2020-07-01 23:43] LABS: Red Blood Cells, Urine 0-2 /hpf (0-2); Squamous Epithelial Cells Few /hpf (Few)
[2020-07-01 23:44] LABS: Bacteria Mod /hpf; Mucus Light (0-Heavy)
[2020-07-02 04:31] LABS: BASOPHILS ABSOLUTE AUTO 0.01 K/mm3 (0.00-0.23); BASOPHILS PERCENT AUTO 0 % (0-2); EOSINOPHILS PERCENT AUTO 0 % (0-6); Hematocrit 29.3 % (37.0-53.0); IMMATURE GRAN ABSOLUTE AUTO 0.06 K/mm3 (0.00-0.10); IMMATURE GRAN PERCENT AUTO 1 % (0-1); LYMPHOCYTES ABSOLUTE AUTO 0.78 K/mm3 (0.84-5.20); LYMPHOCYTES PERCENT AUTO 7 % (21-46); MONOCYTES ABSOLUTE AUTO 0.07 K/mm3 (0.16-1.47); MONOCYTES PERCENT AUTO 1 % (4-13); Mean Corpuscular HGB 30.2 pg (26.0-34.0); Mean Corpuscular HGB Conc 34.1 g/dL (31.5-36.5); Mean Corpuscular Volume 89 fL (80-100); Mean Platelet Volume 10.1 fL (9.1-12.4); NEUTROPHILS ABSOLUTE AUTO 10.03 K/mm3 (1.96-9.15); NEUTROPHILS PERCENT AUTO 92 % (41-73); Platelet Count 204 K/mm3 (150-400); RDW Coefficient Variation 13.5 % (11.7-14.2); RDW Standard Deviation 43.8 fL (35.1-46.3); Red Blood Cell Count 3.31 M/mm3 (4.30-5.90); White Blood Cell Count 10.95 K/mm3 (4.00-11.30)
[2020-07-02 04:50] LABS: Alanine Aminotransfer (ALT/SGP 21 U/L (12-78); Albumin, Blood 3.1 g/dL (3.4-5.0); Albumin/Globulin Ratio 1.1 (0.8-1.8); Alk Phos 80 U/L (50-136); Anion Gap 8 mmol/L (6-16); Aspartate Aminotrans (AST/SGOT 15 U/L (12-37); Bilirubin, Total 0.3 mg/dL (0.1-1.0); Blood Urea Nitrogen 24 mg/dL (8-24); Bun/Creatinine Ratio 19.7 (12.0-20.0); CO2, Blood 21 mmol/L (21-32); Calcium, Blood 8.1 mg/dL (8.5-10.1); Chloride, Blood 111 mmol/L (98-108); Creatinine, Blood 1.22 mg/dL (0.60-1.20); Globulin, Blood 2.9 g/dL (2.2-4.0); Glomerular Filtration Rate >60 (60-); Glucose, Blood 150 mg/dL (70-99); Sodium, Blood 140 mmol/L (136-145)
--- NOTE | 2020-07-02 06:18 | NUR ---
SHIFT SUMMARY AOX4. CANTWELL. DENIES PAIN, N/V OR CHILLS. VSS. TELE NSR c 1ST DEGREE HB @69. SPO2 >90% ON RA, HAD PT AMBULATE c FINGER PULSE OX IN PLACE & SATS MAINTAINED 96% ON RA. LUNGS HAVE EXP WHEEZES T/O, PT DOES FORCE BREATHING DURING AUSCULTATION. RECIEVED BREATHING TX & SOLUMEDROL. LR @100ML/HR. CALL LIGHT IN REACH & PT ABLE TO MAKE NEEDS KNOWN. WCTM.
--- NOTE | 2020-07-02 17:26 | NUR ---
Spiritual care note: Mr. Waters is a [facility] bahai who was appreciative of prayer and companionship. He is very [place], therefore conversation was a bit difficult. He reports hope for healing. Sql Database Programmer services will remain available.
--- NOTE | 2020-07-02 17:36 | NUR ---
SHIFT SUMMARY PT INDEPENDENT TO BATHROOM SINCE IV FLUIDS STOPPED. TOOK A WALK THIS MORNING AND SATS REMAINED IN MID 90'S ON ROOM AIR AFTER ACTIVITY. REPORTS PAIN AND BREATHING IMPROVED AND OVERALL FEELS MUCH BETTER.
--- NOTE | 2020-07-03 06:33 | NUR ---
SHIFT SUMMARY PT IS AN 84 Y/O MALE, ADMITTED FOR SEVERE SEPSIS AND PNA. HE IS A&O X 4, INDEPENDENT IN THE ROOM. NO C/O ACUTE PAIN, NAUSEA OR SOB. R ELBOW WOUND, DRESSING IN PLACE C/D/I. VITAL SIGNS STABLE. NO ACUTE CHANGES IN PT CONDITION NOTED. WILL CONTINUE TO MONITOR AND TREAT PER EMAR UNTIL HAND OFF TO DAY SHIFT RN.
[2020-07-03] MEDS ORDERED: LACT PO (12:33)
[2020-07-03] MEDS ORDERED: AMOCLA875 PO (12:33)
[2020-07-03] MEDS ORDERED: ONDA4ODT MM (12:34)
--- NOTE | 2020-07-03 12:48 | NUR ---
PT TO DISCHARGE HOME.MEDS FAXED TO PHARMACY OF CHOICE. PT EDUCATED ON NEW MEDS. PT TO MAKE OWN APPOINTMENT WITH PCP. PT DRESSED SELF AND TO BE TAKEN HOME BY . WC TO CAR,
== END 2020-07-03 13:28 | disposition home or self-care (01) | DRG 853 ==
LOC: ER 05:23 → MEDS 08:13 → ENPENDDIS 07-03 11:48 → MEDS 07-03 13:28
PROVIDERS: Emergency Medicine; Nurse Practitioner Acute Care; ADMIT Internal Medicine
PROC: 0JBG0ZZ Excision of Right Lower Arm Subcutaneous Tissue and Fascia, Open Approach (ICD-10-PCS; principal; 2020-06-29)
DX: A41.9 Sepsis, unspecified organism (principal); J96.01 Acute respiratory failure with hypoxia; J18.9 Pneumonia, unspecified organism; N17.9 Acute kidney failure, unspecified; I13.0 Hypertensive heart and chronic kidney disease with heart failure and stage 1 through stage 4 chronic kidney disease, or unspecified chronic kidney disease; J43.9 Emphysema, unspecified; N18.30 Chronic kidney disease, stage 3 unspecified; I25.10 Atherosclerotic heart disease of native coronary artery without angina pectoris; K21.9 Gastro-esophageal reflux disease without esophagitis; N40.0 Benign prostatic hyperplasia without lower urinary tract symptoms; Z87.11 Personal history of peptic ulcer disease; I48.91 Unspecified atrial fibrillation; R65.20 Severe sepsis without septic shock; F10.10 Alcohol abuse, uncomplicated; E78.00 Pure hypercholesterolemia, unspecified; Z98.890 Other specified postprocedural states; Z90.49 Acquired absence of other specified parts of digestive tract; Z95.1 Presence of aortocoronary bypass graft; Z87.891 Personal history of nicotine dependence; Z79.82 Long term (current) use of aspirin; I25.2 Old myocardial infarction; Z79.899 Other long term (current) drug therapy; E78.5 Hyperlipidemia, unspecified; M60.9 Myositis, unspecified; D63.1 Anemia in chronic kidney disease; I73.9 Peripheral vascular disease, unspecified; I50.9 Heart failure, unspecified
CPT/HCPCS: 36415; 71045; 80053; 81001; 83605; 83690; 84145; 84484; 85025; 87040; 87086; 92610; 93005; 93010; 94640; 94760; 96365; 96375; 97162; 97166; 97530; 97535; 99285-25; A9270; J0456; J0696; J1644; J1885; J2405; J2930; J7030; J7050; J7120

== ENCOUNTER 2020-07-08 04:35 | Day surgery (SDC) | payer MEDICARE, BC ==
[~2020-07-08 04:35] MED LIST changes: +AMOCLA875 PO; +LACT PO; +ONDA4ODT MM; +TAMS.4ER PO
== END 2020-07-08 22:55 | disposition home or self-care (01) ==
LOC: WOUND 04:35
DX: L98.492 Non-pressure chronic ulcer of skin of other sites with fat layer exposed (principal); M25.621 Stiffness of right elbow, not elsewhere classified; M60.821 Other myositis, right upper arm; I25.2 Old myocardial infarction; I25.10 Atherosclerotic heart disease of native coronary artery without angina pectoris; I48.91 Unspecified atrial fibrillation; I10 Essential (primary) hypertension; E78.5 Hyperlipidemia, unspecified; J44.9 Chronic obstructive pulmonary disease, unspecified; Z95.1 Presence of aortocoronary bypass graft
CPT/HCPCS: A9270

== ENCOUNTER 2020-07-15 02:20 | Day surgery (SDC) | payer MEDICARE, BC | END 2020-07-15 23:48 | disposition home or self-care (01) | LOC: WOUND 02:20 | DX: L98.492 Non-pressure chronic ulcer of skin of other sites with fat layer exposed (principal); M25.621 Stiffness of right elbow, not elsewhere classified; M60.821 Other myositis, right upper arm; I25.10 Atherosclerotic heart disease of native coronary artery without angina pectoris; I25.2 Old myocardial infarction; Z95.1 Presence of aortocoronary bypass graft; I48.91 Unspecified atrial fibrillation; I10 Essential (primary) hypertension; E78.5 Hyperlipidemia, unspecified; J44.9 Chronic obstructive pulmonary disease, unspecified | CPT/HCPCS: A9270 ==

== ENCOUNTER 2020-07-22 04:34 | Day surgery (SDC) | payer MEDICARE, BC | END 2020-07-22 22:43 | disposition home or self-care (01) | LOC: WOUND 04:34 | DX: L98.492 Non-pressure chronic ulcer of skin of other sites with fat layer exposed (principal); M25.621 Stiffness of right elbow, not elsewhere classified; M60.821 Other myositis, right upper arm; I25.10 Atherosclerotic heart disease of native coronary artery without angina pectoris; I25.2 Old myocardial infarction; Z95.1 Presence of aortocoronary bypass graft; I48.91 Unspecified atrial fibrillation; I10 Essential (primary) hypertension; E78.5 Hyperlipidemia, unspecified; J44.9 Chronic obstructive pulmonary disease, unspecified ==

== ENCOUNTER 2020-07-24 19:20 | Emergency (ER) | payer MEDICARE, BC ==
[~2020-07-24] VITALS: Ht 175.3 cm; Wt 86.2 kg
[2020-07-24 20:09] LABS: BASOPHILS ABSOLUTE AUTO 0.03 K/mm3 (0.00-0.23); BASOPHILS PERCENT AUTO 0 % (0-2); EOSINOPHILS ABSOLUTE AUTO 0.23 K/mm3 (0.00-0.68); EOSINOPHILS PERCENT AUTO 2 % (0-6); Hematocrit 32.8 % (37.0-53.0); Hemoglobin 10.9 g/dL (13.5-17.5); IMMATURE GRAN ABSOLUTE AUTO 0.02 K/mm3 (0.00-0.10); IMMATURE GRAN PERCENT AUTO 0 % (0-1); LYMPHOCYTES ABSOLUTE AUTO 2.03 K/mm3 (0.84-5.20); LYMPHOCYTES PERCENT AUTO 21 % (21-46); MONOCYTES ABSOLUTE AUTO 0.82 K/mm3 (0.16-1.47); MONOCYTES PERCENT AUTO 9 % (4-13); Mean Corpuscular HGB 29.7 pg (26.0-34.0); Mean Corpuscular HGB Conc 33.2 g/dL (31.5-36.5); Mean Corpuscular Volume 89 fL (80-100); Mean Platelet Volume 9.9 fL (9.1-12.4); NEUTROPHILS ABSOLUTE AUTO 6.37 K/mm3 (1.96-9.15); NEUTROPHILS PERCENT AUTO 67 % (41-73); Platelet Count 228 K/mm3 (150-400); RDW Coefficient Variation 13.8 % (11.7-14.2); RDW Standard Deviation 44.8 fL (35.1-46.3); Red Blood Cell Count 3.67 M/mm3 (4.30-5.90)
[2020-07-24 20:30] LABS: Alanine Aminotransfer (ALT/SGP 26 U/L (12-78); Albumin, Blood 3.7 g/dL (3.4-5.0); Albumin/Globulin Ratio 1.2 (0.8-1.8); Alk Phos 102 U/L (50-136); Anion Gap 5 mmol/L (6-16); Aspartate Aminotrans (AST/SGOT 15 U/L (12-37); Bilirubin, Total 0.4 mg/dL (0.1-1.0); Blood Urea Nitrogen 17 mg/dL (8-24); Bun/Creatinine Ratio 12.9 (12.0-20.0); CO2, Blood 24 mmol/L (21-32); Chloride, Blood 111 mmol/L (98-108); Creatinine, Blood 1.32 mg/dL (0.60-1.20); Glomerular Filtration Rate 55 (60-); Glucose, Blood 121 mg/dL (70-99); Potassium, Blood 3.9 mmol/L (3.5-5.5); Sodium, Blood 140 mmol/L (136-145); Total Protein, Blood 6.7 g/dL (6.4-8.2); Troponin I <0.015 ng/mL (0.000-0.040)
[2020-07-24] MEDS ORDERED: AZIT250 PO (22:52)
[2020-07-24] MEDS ORDERED: PRED20 PO (22:52)
== END 2020-07-25 00:18 | disposition home or self-care (01) ==
LOC: ER 19:20
PROVIDERS: Physician Assistant
DX: J44.1 Chronic obstructive pulmonary disease with (acute) exacerbation (principal); I25.2 Old myocardial infarction; Z79.899 Other long term (current) drug therapy; Z87.891 Personal history of nicotine dependence
CPT/HCPCS: 36415; 71046; 80053; 83605; 84484; 85025; 93005; 93010; 94644; 96374; 99285-25; A9270; J2930

== ENCOUNTER 2020-07-29 04:28 | Day surgery (SDC) | payer MEDICARE, BC | END 2020-07-29 23:00 | disposition home or self-care (01) | LOC: WOUND 04:28 | DX: L98.492 Non-pressure chronic ulcer of skin of other sites with fat layer exposed (principal); M25.621 Stiffness of right elbow, not elsewhere classified; M60.821 Other myositis, right upper arm; I25.10 Atherosclerotic heart disease of native coronary artery without angina pectoris; I25.2 Old myocardial infarction; Z95.1 Presence of aortocoronary bypass graft; I48.91 Unspecified atrial fibrillation; I10 Essential (primary) hypertension; E78.5 Hyperlipidemia, unspecified; J44.9 Chronic obstructive pulmonary disease, unspecified | CPT/HCPCS: A9270 ==

== ENCOUNTER 2020-08-05 02:49 | Day surgery (SDC) | payer MEDICARE, BC | END 2020-08-05 23:31 | disposition home or self-care (01) | LOC: WOUND 02:49 | DX: L98.492 Non-pressure chronic ulcer of skin of other sites with fat layer exposed (principal); M25.621 Stiffness of right elbow, not elsewhere classified; M60.821 Other myositis, right upper arm; I25.10 Atherosclerotic heart disease of native coronary artery without angina pectoris; I25.2 Old myocardial infarction; Z95.1 Presence of aortocoronary bypass graft; I48.91 Unspecified atrial fibrillation; I10 Essential (primary) hypertension; E78.5 Hyperlipidemia, unspecified; J44.9 Chronic obstructive pulmonary disease, unspecified | CPT/HCPCS: A9270 ==

== ENCOUNTER 2020-08-12 01:02 | Day surgery (SDC) | payer MEDICARE, BC | END 2020-08-12 23:43 | disposition home or self-care (01) | LOC: WOUND 01:02 | DX: L98.492 Non-pressure chronic ulcer of skin of other sites with fat layer exposed (principal); M25.621 Stiffness of right elbow, not elsewhere classified; M60.821 Other myositis, right upper arm; I25.10 Atherosclerotic heart disease of native coronary artery without angina pectoris; I25.2 Old myocardial infarction; I10 Essential (primary) hypertension; E78.5 Hyperlipidemia, unspecified; J44.9 Chronic obstructive pulmonary disease, unspecified; I48.91 Unspecified atrial fibrillation; Z95.1 Presence of aortocoronary bypass graft | CPT/HCPCS: A9270 ==

== ENCOUNTER 2020-08-26 02:07 | Day surgery (SDC) | payer MEDICARE, BC | END 2020-08-26 23:06 | disposition home or self-care (01) | LOC: WOUND 02:07 | DX: L98.492 Non-pressure chronic ulcer of skin of other sites with fat layer exposed (principal); M25.621 Stiffness of right elbow, not elsewhere classified; M60.821 Other myositis, right upper arm; I25.10 Atherosclerotic heart disease of native coronary artery without angina pectoris; I25.2 Old myocardial infarction; Z95.1 Presence of aortocoronary bypass graft; I48.91 Unspecified atrial fibrillation; I10 Essential (primary) hypertension; E78.5 Hyperlipidemia, unspecified; J44.9 Chronic obstructive pulmonary disease, unspecified | CPT/HCPCS: A9270 ==

== ENCOUNTER 2020-09-02 01:27 | Day surgery (SDC) | payer MEDICARE, BC | END 2020-09-02 22:41 | disposition home or self-care (01) | LOC: WOUND 01:27 | DX: L98.492 Non-pressure chronic ulcer of skin of other sites with fat layer exposed (principal); M25.621 Stiffness of right elbow, not elsewhere classified; M60.821 Other myositis, right upper arm | CPT/HCPCS: A9270 ==

== ENCOUNTER 2020-09-03 09:58 | Day surgery (SDC) | payer MEDICARE, BC ==
[~2020-09-03] VITALS: Ht 172.7 cm; Wt 88.9 kg
== END 2020-09-03 12:30 | disposition home or self-care (01) ==
LOC: ORSCSDS 09:58
PROVIDERS: Internal Medicine Gastroenterology
PROC: 0DB58ZX Excision of Esophagus, Via Natural or Artificial Opening Endoscopic, Diagnostic (ICD-10-PCS; principal; 2020-09-03 11:30)
DX: K22.70 Barrett's esophagus without dysplasia (principal); R13.10 Dysphagia, unspecified; K44.9 Diaphragmatic hernia without obstruction or gangrene; I10 Essential (primary) hypertension; E78.00 Pure hypercholesterolemia, unspecified; I25.10 Atherosclerotic heart disease of native coronary artery without angina pectoris; Z79.899 Other long term (current) drug therapy
CPT/HCPCS: 88305; J2704; J7120

== ENCOUNTER 2020-09-09 01:25 | Day surgery (SDC) | payer MEDICARE, BC | END 2020-09-09 23:05 | disposition home or self-care (01) | LOC: WOUND 01:25 | DX: L98.492 Non-pressure chronic ulcer of skin of other sites with fat layer exposed (principal); M25.621 Stiffness of right elbow, not elsewhere classified; M60.821 Other myositis, right upper arm | CPT/HCPCS: A9270 ==

== ENCOUNTER 2020-09-16 01:32 | Day surgery (SDC) | payer MEDICARE, BC | END 2020-09-16 22:38 | disposition home or self-care (01) | LOC: WOUND 01:32 | DX: L98.492 Non-pressure chronic ulcer of skin of other sites with fat layer exposed (principal); M25.621 Stiffness of right elbow, not elsewhere classified; M60.821 Other myositis, right upper arm; I10 Essential (primary) hypertension; J44.9 Chronic obstructive pulmonary disease, unspecified; Z99.81 Dependence on supplemental oxygen | CPT/HCPCS: A9270 ==

== ENCOUNTER 2020-09-23 02:30 | Day surgery (SDC) | payer MEDICARE, BC | END 2020-09-23 23:07 | disposition home or self-care (01) | LOC: WOUND 02:30 | DX: L98.492 Non-pressure chronic ulcer of skin of other sites with fat layer exposed (principal); M25.621 Stiffness of right elbow, not elsewhere classified; M60.821 Other myositis, right upper arm | CPT/HCPCS: A9270 ==

== ENCOUNTER 2020-09-30 00:30 | Day surgery (SDC) | payer MEDICARE, BC | END 2020-09-30 23:12 | disposition home or self-care (01) | LOC: WOUND 00:30 | DX: L98.492 Non-pressure chronic ulcer of skin of other sites with fat layer exposed (principal); M25.621 Stiffness of right elbow, not elsewhere classified; M60.821 Other myositis, right upper arm | CPT/HCPCS: A9270 ==

== ENCOUNTER 2020-10-07 01:23 | Day surgery (SDC) | payer MEDICARE, BC | END 2020-10-07 23:02 | disposition home or self-care (01) | LOC: WOUND 01:23 | DX: L98.492 Non-pressure chronic ulcer of skin of other sites with fat layer exposed (principal); M25.621 Stiffness of right elbow, not elsewhere classified; M60.821 Other myositis, right upper arm | CPT/HCPCS: A9270 ==

== ENCOUNTER 2020-10-21 00:45 | Day surgery (SDC) | payer MEDICARE, BC | END 2020-10-21 23:57 | disposition home or self-care (01) | LOC: WOUND 00:45 | DX: L98.492 Non-pressure chronic ulcer of skin of other sites with fat layer exposed (principal); M25.621 Stiffness of right elbow, not elsewhere classified; M60.821 Other myositis, right upper arm | CPT/HCPCS: A9270 ==

== ENCOUNTER 2020-11-04 02:33 | Day surgery (SDC) | payer MEDICARE, BC | END 2020-11-04 22:46 | disposition home or self-care (01) | LOC: WOUND 02:33 | DX: L98.492 Non-pressure chronic ulcer of skin of other sites with fat layer exposed (principal); M25.621 Stiffness of right elbow, not elsewhere classified; M60.821 Other myositis, right upper arm; I25.10 Atherosclerotic heart disease of native coronary artery without angina pectoris; Z95.5 Presence of coronary angioplasty implant and graft; I25.2 Old myocardial infarction; I48.91 Unspecified atrial fibrillation; I10 Essential (primary) hypertension; E78.5 Hyperlipidemia, unspecified; J44.9 Chronic obstructive pulmonary disease, unspecified | CPT/HCPCS: A9270 ==

== ENCOUNTER 2020-11-16 03:21 | Day surgery (SDC) | payer MEDICARE, BC | END 2020-11-16 22:49 | disposition home or self-care (01) | LOC: WOUND 03:21 | DX: L98.492 Non-pressure chronic ulcer of skin of other sites with fat layer exposed (principal); M25.621 Stiffness of right elbow, not elsewhere classified; M60.821 Other myositis, right upper arm; I25.10 Atherosclerotic heart disease of native coronary artery without angina pectoris; I25.2 Old myocardial infarction; Z95.1 Presence of aortocoronary bypass graft; I48.91 Unspecified atrial fibrillation; I10 Essential (primary) hypertension; E78.5 Hyperlipidemia, unspecified; J44.9 Chronic obstructive pulmonary disease, unspecified | CPT/HCPCS: A9270 ==

== ENCOUNTER 2020-12-02 01:31 | Day surgery (SDC) | payer MEDICARE, BC | END 2020-12-02 23:00 | disposition home or self-care (01) | LOC: WOUND 01:31 | DX: L98.492 Non-pressure chronic ulcer of skin of other sites with fat layer exposed (principal); M25.621 Stiffness of right elbow, not elsewhere classified; M60.821 Other myositis, right upper arm; I10 Essential (primary) hypertension; J44.9 Chronic obstructive pulmonary disease, unspecified; I48.91 Unspecified atrial fibrillation; I25.10 Atherosclerotic heart disease of native coronary artery without angina pectoris; I25.2 Old myocardial infarction | CPT/HCPCS: A9270 ==

== ENCOUNTER 2020-12-09 02:28 | Day surgery (SDC) | payer MEDICARE, BC | END 2020-12-09 12:00 | disposition home or self-care (01) | LOC: WOUND 02:28 | DX: S51.001A Unspecified open wound of right elbow, initial encounter (principal); X58.XXXA Exposure to other specified factors, initial encounter | CPT/HCPCS: A9270 ==

== ENCOUNTER 2020-12-23 03:19 | Day surgery (SDC) | payer MEDICARE, BC | END 2020-12-23 23:25 | disposition home or self-care (01) | LOC: WOUND 03:19 | DX: L98.492 Non-pressure chronic ulcer of skin of other sites with fat layer exposed (principal); M25.621 Stiffness of right elbow, not elsewhere classified; M60.821 Other myositis, right upper arm; I25.10 Atherosclerotic heart disease of native coronary artery without angina pectoris; I25.2 Old myocardial infarction; Z95.1 Presence of aortocoronary bypass graft; I48.91 Unspecified atrial fibrillation; I10 Essential (primary) hypertension; E78.5 Hyperlipidemia, unspecified; J44.9 Chronic obstructive pulmonary disease, unspecified | CPT/HCPCS: A9270 ==

== ENCOUNTER 2021-01-06 02:00 | Day surgery (SDC) | payer MEDICARE, BC | END 2021-01-06 23:08 | disposition home or self-care (01) | LOC: WOUND 02:00 | DX: L98.492 Non-pressure chronic ulcer of skin of other sites with fat layer exposed (principal); M25.621 Stiffness of right elbow, not elsewhere classified; M60.821 Other myositis, right upper arm | CPT/HCPCS: A9270 ==

== ENCOUNTER 2021-01-12 05:56 | Day surgery (SDC) | payer MEDICARE, BC | END 2021-01-12 22:47 | disposition home or self-care (01) | LOC: WOUND 05:56 | DX: L98.492 Non-pressure chronic ulcer of skin of other sites with fat layer exposed (principal); M25.621 Stiffness of right elbow, not elsewhere classified; M60.821 Other myositis, right upper arm | CPT/HCPCS: A9270; G0463 ==

== ENCOUNTER 2021-01-20 02:50 | Day surgery (SDC) | payer MEDICARE, BC | END 2021-01-20 23:37 | disposition home or self-care (01) | LOC: WOUND 02:50 | PROC: 0JBG0ZZ Excision of Right Lower Arm Subcutaneous Tissue and Fascia, Open Approach (ICD-10-PCS; principal; 2021-01-20) | DX: L98.492 Non-pressure chronic ulcer of skin of other sites with fat layer exposed (principal); M60.821 Other myositis, right upper arm; I10 Essential (primary) hypertension; E78.5 Hyperlipidemia, unspecified; J44.9 Chronic obstructive pulmonary disease, unspecified; I25.2 Old myocardial infarction; Z95.1 Presence of aortocoronary bypass graft; Z99.81 Dependence on supplemental oxygen | CPT/HCPCS: A9270 ==

== ENCOUNTER 2021-02-10 09:50 | Emergency (ER) | payer MEDICARE, BC ==
[~2021-02-10] VITALS: Ht 175.3 cm; Wt 86.2 kg
[2021-02-10 10:54] LABS: BASOPHILS ABSOLUTE AUTO 0.03 K/mm3 (0.00-0.23); BASOPHILS PERCENT AUTO 0 % (0-2); EOSINOPHILS ABSOLUTE AUTO 0.23 K/mm3 (0.00-0.68); EOSINOPHILS PERCENT AUTO 2 % (0-6); Hematocrit 34.5 % (37.0-53.0); Hemoglobin 11.6 g/dL (13.5-17.5); IMMATURE GRAN ABSOLUTE AUTO 0.04 K/mm3 (0.00-0.10); IMMATURE GRAN PERCENT AUTO 0 % (0-1); LYMPHOCYTES ABSOLUTE AUTO 1.55 K/mm3 (0.84-5.20); LYMPHOCYTES PERCENT AUTO 11 % (21-46); MONOCYTES ABSOLUTE AUTO 1.02 K/mm3 (0.16-1.47); MONOCYTES PERCENT AUTO 7 % (4-13); Mean Corpuscular HGB 29.5 pg (26.0-34.0); Mean Corpuscular HGB Conc 33.6 g/dL (31.5-36.5); Mean Corpuscular Volume 88 fL (80-100); Mean Platelet Volume 10.5 fL (9.1-12.4); NEUTROPHILS ABSOLUTE AUTO 11.31 K/mm3 (1.96-9.15); NEUTROPHILS PERCENT AUTO 80 % (41-73); Platelet Count 208 K/mm3 (150-400); RDW Coefficient Variation 13.7 % (11.7-14.2); RDW Standard Deviation 44.3 fL (35.1-46.3); Red Blood Cell Count 3.93 M/mm3 (4.30-5.90); White Blood Cell Count 14.18 K/mm3 (4.00-11.30)
[2021-02-10 10:58] LABS: Alanine Aminotransfer (ALT/SGP 25 U/L (12-78); Albumin, Blood 3.7 g/dL (3.4-5.0); Albumin/Globulin Ratio 1.1 (0.8-1.8); Alk Phos 114 U/L (50-136); Anion Gap 7 mmol/L (6-16); Aspartate Aminotrans (AST/SGOT 18 U/L (12-37); Bilirubin, Total 0.5 mg/dL (0.1-1.0); Blood Urea Nitrogen 17 mg/dL (8-24); Bun/Creatinine Ratio 12.6 (12.0-20.0); CO2, Blood 27 mmol/L (21-32); Calcium, Blood 9.5 mg/dL (8.5-10.1); Chloride, Blood 107 mmol/L (98-108); Creatinine, Blood 1.35 mg/dL (0.60-1.20); Globulin, Blood 3.3 g/dL (2.2-4.0); Glomerular Filtration Rate 50 (60-); Glucose, Blood 114 mg/dL (70-99); Sodium, Blood 141 mmol/L (136-145); Troponin I <0.015 ng/mL (0.000-0.040)
[2021-02-10 12:06] LABS: Influenza A, PCR NEGATIVE (NEGATIVE); Influenza B, PCR NEGATIVE (NEGATIVE); Resp Syncytial Virus, PCR NEGATIVE (NEGATIVE); SARS-Cov-2 (COVID-19) PCR, MMC NEGATIVE (NEGATIVE)
[2021-02-10] MEDS ORDERED: CEFTRIAXON1 GM/50 M1 IV (12:54)
[2021-02-10] MEDS ORDERED: Doxycycline Mo100 M1 PO (12:59)
[2021-02-10] MEDS ORDERED: Prednisone50 MG PO (13:01)
== END 2021-02-10 13:58 | disposition home or self-care (01) ==
LOC: ER 09:50
PROVIDERS: Emergency Medicine; Physician Assistant
DX: J44.1 Chronic obstructive pulmonary disease with (acute) exacerbation (principal); Z79.899 Other long term (current) drug therapy; I25.2 Old myocardial infarction; Z87.891 Personal history of nicotine dependence
CPT/HCPCS: 0241U; 36415; 71046; 80053; 82248; 83880; 84484; 85025; 93005; 93010; 94640; 94644; 96374; 96375; 99285-25; J0696; J2405

== ENCOUNTER 2021-02-17 01:45 | Day surgery (SDC) | payer MEDICARE, BC ==
[~2021-02-17 01:45] MED LIST changes: +CEFTRIAXON1 GM/50 M1 IV; +Doxycycline Mo100 M1 PO; +Prednisone50 MG PO
== END 2021-02-17 22:35 | disposition home or self-care (01) ==
LOC: WOUND 01:45
DX: L98.492 Non-pressure chronic ulcer of skin of other sites with fat layer exposed (principal); M25.621 Stiffness of right elbow, not elsewhere classified; M60.821 Other myositis, right upper arm; I10 Essential (primary) hypertension; J44.9 Chronic obstructive pulmonary disease, unspecified
CPT/HCPCS: A9270

== ENCOUNTER 2021-03-03 01:11 | Day surgery (SDC) | payer MEDICARE, BC | END 2021-03-03 23:03 | disposition home or self-care (01) | LOC: WOUND 01:11 | DX: L98.492 Non-pressure chronic ulcer of skin of other sites with fat layer exposed (principal); M25.621 Stiffness of right elbow, not elsewhere classified; M60.821 Other myositis, right upper arm; I10 Essential (primary) hypertension; J44.9 Chronic obstructive pulmonary disease, unspecified | CPT/HCPCS: A9270; G0463 ==

== ENCOUNTER 2021-04-07 01:50 | Day surgery (SDC) | payer MEDICARE, BC | END 2021-04-07 23:00 | disposition home or self-care (01) | LOC: WOUND 01:50 | DX: L98.492 Non-pressure chronic ulcer of skin of other sites with fat layer exposed (principal); M60.821 Other myositis, right upper arm; M25.621 Stiffness of right elbow, not elsewhere classified; I25.10 Atherosclerotic heart disease of native coronary artery without angina pectoris; I25.2 Old myocardial infarction; I48.91 Unspecified atrial fibrillation; I10 Essential (primary) hypertension; E78.5 Hyperlipidemia, unspecified; J44.9 Chronic obstructive pulmonary disease, unspecified; Z99.81 Dependence on supplemental oxygen; Z95.1 Presence of aortocoronary bypass graft | CPT/HCPCS: A9270; G0463 ==

== ENCOUNTER 2021-04-14 03:30 | Day surgery (SDC) | payer MEDICARE, BC | END 2021-04-14 22:52 | disposition home or self-care (01) | LOC: WOUND 03:30 | DX: L98.492 Non-pressure chronic ulcer of skin of other sites with fat layer exposed (principal); M60.821 Other myositis, right upper arm; M25.621 Stiffness of right elbow, not elsewhere classified; I25.2 Old myocardial infarction; I48.91 Unspecified atrial fibrillation; I10 Essential (primary) hypertension; J44.9 Chronic obstructive pulmonary disease, unspecified; Z99.81 Dependence on supplemental oxygen; Z95.1 Presence of aortocoronary bypass graft | CPT/HCPCS: A9270 ==

== ENCOUNTER 2021-04-30 00:16 | Day surgery (SDC) | payer MEDICARE, BC | END 2021-04-30 22:51 | disposition home or self-care (01) | LOC: WOUND 00:16 | DX: L98.492 Non-pressure chronic ulcer of skin of other sites with fat layer exposed (principal); M25.621 Stiffness of right elbow, not elsewhere classified; M60.821 Other myositis, right upper arm | CPT/HCPCS: A9270 ==

== ENCOUNTER 2021-05-12 01:32 | Day surgery (SDC) | payer MEDICARE, BC | END 2021-05-12 23:17 | disposition home or self-care (01) | LOC: WOUND 01:32 | DX: S51.001A Unspecified open wound of right elbow, initial encounter (principal); L98.492 Non-pressure chronic ulcer of skin of other sites with fat layer exposed; I25.2 Old myocardial infarction; I10 Essential (primary) hypertension; J44.9 Chronic obstructive pulmonary disease, unspecified; M25.621 Stiffness of right elbow, not elsewhere classified; M60.821 Other myositis, right upper arm; Z95.1 Presence of aortocoronary bypass graft | CPT/HCPCS: A9270; G0463 ==

== ENCOUNTER → 2021-06-29 | Outpatient (CLI) | payer MEDICARE, BC | END | disposition home or self-care (01) | LOC: LAB 08:43 → LAB SHORT 08:43 | DX: D49.2 Neoplasm of unspecified behavior of bone, soft tissue, and skin (principal) | CPT/HCPCS: 88305; 88312 ==

== ENCOUNTER 2021-11-24 03:48 | Inpatient (IN) | payer MEDICARE, BC ==
[~2021-11-24] VITALS: Ht 172.7 cm; Wt 91.2 kg
[2021-11-24 04:59] LABS: BASOPHILS ABSOLUTE AUTO 0.03 K/mm3 (0.00-0.23); BASOPHILS PERCENT AUTO 0 % (0-2); EOSINOPHILS ABSOLUTE AUTO 0.21 K/mm3 (0.00-0.68); EOSINOPHILS PERCENT AUTO 2 % (0-6); Hematocrit 35.9 % (37.0-53.0); IMMATURE GRAN ABSOLUTE AUTO 0.05 K/mm3 (0.00-0.10); IMMATURE GRAN PERCENT AUTO 1 % (0-1); LYMPHOCYTES ABSOLUTE AUTO 1.56 K/mm3 (0.84-5.20); LYMPHOCYTES PERCENT AUTO 17 % (21-46); MONOCYTES ABSOLUTE AUTO 0.61 K/mm3 (0.16-1.47); MONOCYTES PERCENT AUTO 7 % (4-13); Mean Corpuscular HGB 29.3 pg (26.0-34.0); Mean Corpuscular HGB Conc 33.4 g/dL (31.5-36.5); Mean Corpuscular Volume 88 fL (80-100); Mean Platelet Volume 9.8 fL (9.1-12.4); NEUTROPHILS ABSOLUTE AUTO 6.88 K/mm3 (1.96-9.15); NEUTROPHILS PERCENT AUTO 74 % (41-73); Platelet Count 290 K/mm3 (150-400); RDW Coefficient Variation 13.7 % (11.7-14.2); RDW Standard Deviation 44.1 fL (35.1-46.3); Red Blood Cell Count 4.09 M/mm3 (4.30-5.90); White Blood Cell Count 9.34 K/mm3 (4.00-11.30)
[2021-11-24 05:18] LABS: Albumin, Blood 3.7 g/dL (3.4-5.0); Albumin/Globulin Ratio 1.1 (0.8-1.8); Bilirubin, Total 0.4 mg/dL (0.1-1.0); Bun/Creatinine Ratio 15.3 (12.0-20.0); Calcium, Blood 9.1 mg/dL (8.5-10.1); Creatinine, Blood 1.24 mg/dL (0.60-1.20); Globulin, Blood 3.3 g/dL (2.2-4.0); Potassium, Blood 3.9 mmol/L (3.5-5.5)
[2021-11-24] MEDS ORDERED: ZESTRIL40 M1 PO (05:29)
[2021-11-24 08:52] LABS: International Normalized Ratio 1.06; Prothrombin Time Results 11.1 Sec (9.7-11.5)
[2021-11-24 10:53] LABS: Hemoglobin 12.1 g/dL (13.5-17.5); Mean Corpuscular HGB 30.2 pg (26.0-34.0); Mean Corpuscular HGB Conc 33.6 g/dL (31.5-36.5); Mean Corpuscular Volume 90 fL (80-100); Mean Platelet Volume 9.7 fL (9.1-12.4); Platelet Count 282 K/mm3 (150-400); RDW Standard Deviation 45.8 fL (35.1-46.3); Red Blood Cell Count 4.01 M/mm3 (4.30-5.90); White Blood Cell Count 9.96 K/mm3 (4.00-11.30)
--- NOTE | 2021-11-24 14:39 | NUR ---
ASSUMPTION OF CARE NOTE PT IS ALERT AND ORIENTED X 4, HE WAS INDEPENDENT TRANSFER TO PCU BED. HE REPORTED FEELING NAUSEA AND 6/10 ABD PAIN, SEE EMAR. BP STABLE, HR 49-52 PER TELE MONITOR. HE IS HARD OF HEARING BUT REPORTED LEAVNIG HEARING AIDS AT HOME. SPO2 96% VIA ROOM AIR. WARM BLANKETS PROVIDED. CALL LIGHT IN REACH, PT ORIENTED TO ROOM.
--- NOTE | 2021-11-24 15:21 | NUR ---
RECEIVED REPORT FROM RETAIL ASSOCIATE MANAGER BILINGUALLILY ELLIOTT AROUND 0994 REGARDING PT ADMITTING TO MEDICAL UNIT WITH DIGNOSIS OF COFFEE GROUND EMESIS STARTED THREE DAYS AGO. PATIENT ARRIVED TO THE ROOM AROUND 1030. PATIENT TRANSFERRED TO BED WITH SBA. PATIENT A&OX4. PATIENT JAMUL AND WEARS HEARING AIDE NORMALLY, BUT LEFT AT HOME THIS VISIT. PLEASANT AND COOPERATIVE WITH CARE. USES CALL LIGHT APPROPRIATELY AND ABLE TO ADVOCATE FOR HIS NEEDS. PATIENT PLACED ON TELE. BRADYCARDIA WITH HR IN HIGH 40'S PER PURCHASING AND FISCAL CLERK JEANIE. DENIES CP/CHEST DISCOMFORT. LUNGS WHEEZING T/O. PATIENT ON RA WITH SPO2 ABOVE 92%. DENIES SOB. PATIENT REPORTS OF PAIN ACROSS HIS ABDOMEN 07/16. RECIEVED PRN PAIN MEDICATION PER EMAR. DENIES N/V. AROUND [address] RECIEVED A CALL FROM DR. GUERRERO. PER DR. GUERRERO PATIENT CAN HAVE A CLEAR LIQUID DIET AND HE IS PLANNING TO SEE THE PATIENT AROUND 1700. ADMISSION ASSESSMENT AND MEDS RECONCILLIATION WAS DONE. PATIENT HAD AN EPISODE OF LOW HR IN HIGH 30'S FOR ABOUT [address] ADAMSON REGARDING THIS ISSUES. PER DR. ADAMSON HE WILL PLACED AN ORDER TO TRANSFER PATIENT TO PCU D/T BRADYCARDIA AND TO MONITOR PATIENT CLOSELY. REPORT GIVEN TO FIRE INSPECTORLILY ARANDA AROUND 1410 REGARDING PT CONDITION. PATIENT TRANSFERRED TO PCU ROOM 5 AROUND 1425. ALL PATIENT PERSONAL BELONGINGS WERE SENT WITH THE PATIENT.
--- NOTE | 2021-11-24 17:51 | NUR ---
SHIFT SUMMARY PT ARRIVED TO PCU APPROX. 1415 FROM MEDICAL FLOOR. HE IS ALERT AND ORIENTED X 4, HE WAS ORIENTED TO PCU UNIT. BP STABLE, SPO2 >95% VIA ROOM AIR. HR HAS RANGED FROM 45-62 PER TELE MONITORING. HE REPORTED FEELING NAUSEOUS UPON TRANSFER, SEE EMAR. HE HAD SOME CLEAR LIQUID PO INTAKE AND REPORTED THAT NAUSEA HAS RESOLVED. HE IS SBA TO BATHROOM. HE REPORTED ABD PAIN 6/10 SEE EMAR FOR MEDICATION MANAGEMENT. WHEN HE FIRST ARRIVED TO PCU, HE REPORTED FEELING LIGHTHEADED BUT REPORTED THAT IT HAS SINCE RESOLVED. NO COUGH NOTED. HE IS HARD OF HEARING AND REPORTED LEAVING HEARING AIDS AT HOME. IV IN R FOREARM IS INFUSING PER EMAR ORDERS. NO OTHER ACUTE CHANGES NOTED. CALL LIGHT IS W/IN REACH. WILL CONTINUE TO MONITOR UNTIL REPORT GIVEN.
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
--- NOTE | 2021-11-25 04:39 | NUR ---
SHIFT SUMMARY PATIENT ALERT AND ORIENTED FULLY DURING THIS SHIFT. SLIGHTLY VENETIE. CALM AND COOPERATIVE WITH CARE. PATIENT ABLE TO MAKE NEEDS KNOWN. EGD SCHEDULED FOR TODAY. ONLY WATER AT 1000 AND THEN NPO AT 1200. MD GUERRERO TO PERFORM EGD. PATIENT CONTINUES TO HAVE ABD PAIN BUT DENIES NEEDING MEDICATION AND IS ABLE TO SLEEP; DENIES N/V. ABD IS TENDER BUT PATIENT STATES DISTENTION IS NORMAL. PATIENT ABLE TO TURN SELF IN BED INDEPENDENTLY. PATIENT GIVEN BREATHING TX NEEDED DURING THIS SHIFT. NS RUNNING AT 75 MLS/HR PER ORDER. PATIENT APPEARS TO BE RESTING WITH EQUAL CHEST RISE/FALL NOTED. BED IN LOWEST POSITION AND CALL LIGHT WITHIN REACH. THIS RN WILL CONTINUE TO MONITOR UNTIL SHIFT CHANGE AT 0700.
[2021-11-25 05:03] LABS: BASOPHILS ABSOLUTE AUTO 0.02 K/mm3 (0.00-0.23); BASOPHILS PERCENT AUTO 0 % (0-2); EOSINOPHILS ABSOLUTE AUTO 0.31 K/mm3 (0.00-0.68); EOSINOPHILS PERCENT AUTO 5 % (0-6); Hematocrit 28.6 % (37.0-53.0); Hemoglobin 9.3 g/dL (13.5-17.5); IMMATURE GRAN ABSOLUTE AUTO 0.01 K/mm3 (0.00-0.10); IMMATURE GRAN PERCENT AUTO 0 % (0-1); LYMPHOCYTES ABSOLUTE AUTO 1.96 K/mm3 (0.84-5.20); LYMPHOCYTES PERCENT AUTO 29 % (21-46); MONOCYTES ABSOLUTE AUTO 0.54 K/mm3 (0.16-1.47); MONOCYTES PERCENT AUTO 8 % (4-13); Mean Corpuscular HGB Conc 32.5 g/dL (31.5-36.5); Mean Corpuscular Volume 92 fL (80-100); Mean Platelet Volume 9.9 fL (9.1-12.4); NEUTROPHILS ABSOLUTE AUTO 3.93 K/mm3 (1.96-9.15); NEUTROPHILS PERCENT AUTO 58 % (41-73); Platelet Count 212 K/mm3 (150-400); RDW Standard Deviation 47.1 fL (35.1-46.3); White Blood Cell Count 6.77 K/mm3 (4.00-11.30)
[2021-11-25 05:21] LABS: Albumin, Blood 2.9 g/dL (3.4-5.0); Anion Gap 6 mmol/L (6-16); Blood Urea Nitrogen 18 mg/dL (8-24); Bun/Creatinine Ratio 14.6 (12.0-20.0); CO2, Blood 24 mmol/L (21-32); Calcium, Blood 8.5 mg/dL (8.5-10.1); Chloride, Blood 112 mmol/L (98-108); Creatinine, Blood 1.23 mg/dL (0.60-1.20); Glomerular Filtration Rate 58 (60-); Glucose, Blood 85 mg/dL (70-99); Phosphorus, Blood 2.8 mg/dL (2.5-4.9); Sodium, Blood 142 mmol/L (136-145)
[2021-11-25 11:58] LABS: Hematocrit 32.1 % (37.0-53.0); Hemoglobin 10.4 g/dL (13.5-17.5)
--- NOTE | 2021-11-25 13:48 | NUR ---
PT TAKEN TO DAY SURGERY, WILL AWAIT RETURN.
--- NOTE | 2021-11-25 14:14 | NUR ---
PT HAS EXPIARTORY WHEEZES, DENIES SOB BUT STATES "I HAVE EMPHYSEMA AND GET BREATHING TREATMENTS 4XDAY", SP02 IS 96-98% ON RA. SPOKE TO GUNJAN STROUD TO GIVE PRN ALBUTEROL NEBULIZER.
--- NOTE | 2021-11-25 14:51 | NUR ---
11/25/21 1451 Rose Jaramillo HISTORY, CHART, MEDICATIONS AND ALLERGIES REVIEWED BEFORE START OF PROCEDURE. PATIENT CONFIRMS NPO STATUS AND AGREES WITH SCHEDULED PROCEDURE. 3-LEAD EKG REVIEWED WITH PHYSICIAN PRIOR TO START OF PROCEDURE. MONITOR INTACT WITH CONTINUOUS PULSE OXIMETRY,CAPNOGRAPHY, 3-LEAD EKG, INTERMITTENT BP. SUPPLEMENTAL O2 TO BE TITRATED THROUGHOUT PROCEDURE TO MAINTAIN O2 SATURATION ABOVE 90%. PATIENT DETERMINED TO BE ASA APPROPRIATE FOR PROPOFOL SEDATION PRIOR TO START OF PROCEDURE BY DR. GUERRERO.
--- NOTE | 2021-11-25 18:05 | NUR ---
SHIFT SUMMARY PT IS ALERT AND ORIENTED X 4 BUT HARD OF HEARING. BP STABLE, HR HAS RANGED FROM 50-60'S PER TELE CHAMPION OF SUSTAINABLE DESIGN. HE REPORTED ABD PAIN THIS AM 5/10 BUT DENIED MEDICATION MANAGEMENT. SPO2 93% VIA ROOM AIR. PT WENT DOWN FOR EGD APPROX. 1330 AND ARRIVED BACK TO PCU APPROX. 1500. VSS. HE HAS SINCE AMBULATED TO BATHROOM A SBA AND IS STEADY ON HIS FEET. HE HAS DENIED FEELINGS OF NAUSEA BUT REPORTS HUNGER, TRAY ORDERED. THERE WERE NO EPISODES OF EMESIS DURING SHIFT. NO OTHER ACUTE CHANGES NOTED. PT NOW APPEARS TO BE SLEEPING, CALL LIGHT IN REACH, BED IN LOW. WILL CONTINUE TO MONITOR UNTIL REPORT GIVEN.
--- NOTE | 2021-11-25 21:53 | NUR ---
ASSUMPTION OF CARE THIS RN ASSUMED CARE OF PATIENT AT 1900. REPORT TAKEN FROM MANOJ BAUTISTA. IT WAS REPORTED THAT THE PATIENT RETURNED TO THE UNIT FROM EGD AROUND 1500 THIS AFTERNOON, WITH REPORTED CLIPS PLACED FOR BLEED. PATIENT DENIES ABD PAIN AND N/V FOR THIS RN. MEDICATED PER EMAR FOR BACK PAIN. PATIENT INDEPENDENT WITH RESPOSITIONING IN BED. VITALS STABLE. PATIENT MECHOOPDA BUT ABLE TO MAKE NEEDS KNOWN AND CALLS STAFF APPROPRIATLEY. BED IN LOWEST POSITION AND CALL LIGHT WITHIN REACH.
--- NOTE | 2021-11-26 04:46 | NUR ---
SHIFT SUMMARY PATIENT A&O X4. CALM AND COOPERATIVE WITH CARE. NEZ PERCE. NO ACUTE EVENTS DURING THE NIGHT. PATIENT WITH HX OF COPD/EMPHYSEMA; THIS RN NOTED PT DESATTING TO 86-88% WHILE LYING FLAT SO PATIENT WAS PLACED ON 1L NC TO MAINTAIN O2 SATS >90%. BP STABLE. AFEBRILE. PATIENT DENIES ABD PAIN AND N/V. TOLERATED FOOD/LIQUIDS WELL. PATIENT ABLE TO REPOSITION SELF IN BED INDEPENDENTLY AND MAKE NEEDS KNOWN; CALLING STAFF APPROPRIATELY. PATIENT APPEARS TO BE RESTING WITH EQUAL CHEST RISE/FALL NOTED. BED IN LOWEST POSITION AND CALL LIGHT WITHIN REACH. THIS RN WILL CONTINUE TO MONITOR AND PROVIDE INTERVENTIONS APPROPRIATE UNTIL SHIFT CHANGE AT 0700.
[2021-11-26 09:43] LABS: Hematocrit 30.6 % (37.0-53.0); Hemoglobin 10.5 g/dL (13.5-17.5)
--- NOTE | 2021-11-26 09:50 | NUR ---
AM NOTE: PATIENT ALERT AND ORIENTED X4. TAKOTNA. DENIES NUMBNESS/TINGLING. SBA TO BATHROOM. UP TO EDGE OF BED FOR BREAKFAST. ON ROOM AIR SATING ABOVE 94%. LUNGS SOUNDING CLEAR WITH EXP WHEEZE. DENIES SOB. TELE SHOWING SINUS RHYTHM/SINUS BREE WITH HR 50-70'S. DENIES CHEST PAIN/PRESSURE. BP STABLE. TOELRATING PO DIET. DENIES ABDOMINAL PAIN/NAUSEA. BOWEL TONES PRESENT. NO SIGNS OF BLEEDING. H&H STABLE. DR. ADAMSON IN THIS AM TO ASSESS PATIENT. POSSIBLE PLANS FOR DC. CALL LIGHT IN REACH. BED IN LOW LOCKED POSITION. WILL CONTINUE TO MONITOR.
--- NOTE | 2021-11-26 14:23 | NUR ---
Spiritual Care Request Request to have Father Nagi visit Pt. based on communication to Department leader. PCU nurses confirm that Pt. will soon be discharged. This blood bank worker visited Pt. to confirm his request. Pt. verbalized that Estrella Lazar was a personal friend, and requested this blood bank worker to let Estrella Lazar know Pt. was in the hospital. This blood bank worker contacted Estrella Lazar by phone that his friend was in the hospital. Estrella Lazar is unable to visit, but committed to contact the Pt. by phone.
--- NOTE | 2021-11-26 14:32 | NUR ---
DISCHARGE: NO ACUTE CHANGES THROUGHOUT SHIFT. PATIENT REMAINED ALERT AND ORIENTED X4. ON ROOM AIR. TELE SHOWING SINUS RHYTHM WITH HR AVERAGING 60'S. DENIES OVERALL PAIN. H&H REMAIN STABLE. DISCHARGE INSTRUCTIONS REVIEWED AND QUESTIONS ANSWERED. THIS RN EDUCATED ABOUT MEDICATIONS, AND FOLLOW UP APPOINTMENTS. IV TAKEN OUT WNL. IN TO PICK PATIENT UP. PATIENT LEFT UNIT WITH ALL PERSONAL BELONGINGS VIA WHEELCHAIR.
== END 2021-11-26 14:05 | disposition home or self-care (01) | DRG 377 ==
LOC: ER 03:48 → MEDS 07:44 → PCU 07:44 → MEDS 10:24 → PCU 14:22
PROVIDERS: Internal Medicine Gastroenterology; Student in an Organized Health Care Education/Training Program; ADMIT Internal Medicine
PROC: 0W3P8ZZ Control Bleeding in Gastrointestinal Tract, Via Natural or Artificial Opening Endoscopic (ICD-10-PCS; principal; 2021-11-25 15:30)
DX: K31.82 Dieulafoy lesion (hemorrhagic) of stomach and duodenum (principal); G92.8 Other toxic encephalopathy; K92.0 Hematemesis; K22.70 Barrett's esophagus without dysplasia; I10 Essential (primary) hypertension; I25.10 Atherosclerotic heart disease of native coronary artery without angina pectoris; E78.00 Pure hypercholesterolemia, unspecified; N40.0 Benign prostatic hyperplasia without lower urinary tract symptoms; J43.9 Emphysema, unspecified; R00.1 Bradycardia, unspecified; D64.9 Anemia, unspecified; I71.40 Abdominal aortic aneurysm, without rupture, unspecified; T42.75XA Adverse effect of unspecified antiepileptic and sedative-hypnotic drugs, initial encounter; K44.9 Diaphragmatic hernia without obstruction or gangrene; I25.2 Old myocardial infarction; Z87.01 Personal history of pneumonia (recurrent); Z95.1 Presence of aortocoronary bypass graft; Z90.49 Acquired absence of other specified parts of digestive tract; Z98.890 Other specified postprocedural states; Z87.891 Personal history of nicotine dependence; Z79.51 Long term (current) use of inhaled steroids; Z79.82 Long term (current) use of aspirin; Z79.899 Other long term (current) drug therapy
CPT/HCPCS: 36415; 74177; 80053; 80069; 82271; 83690; 84484; 85014; 85018; 85025; 85027; 85610; 85730; 86850; 86900; 86901; 93005; 93010; 94640; 94664; 94760; 96361; 96374-59; 96375; 99285-25; A9270; C9113; J2250; J2270; J2405; J2550; J2704; J3010; J7030; J7120; Q9967

== ENCOUNTER 2022-02-09 18:45 | Emergency (ER) | payer MEDICARE, BC ==
[~2022-02-09] VITALS: Ht 172.7 cm; Wt 90.7 kg
[2022-02-09 19:20] LABS: BASOPHILS ABSOLUTE AUTO 0.02 K/mm3 (0.00-0.23); BASOPHILS PERCENT AUTO 0 % (0-2); EOSINOPHILS PERCENT AUTO 2 % (0-6); Hematocrit 35.5 % (37.0-53.0); Hemoglobin 12.2 g/dL (13.5-17.5); IMMATURE GRAN ABSOLUTE AUTO 0.02 K/mm3 (0.00-0.10); IMMATURE GRAN PERCENT AUTO 0 % (0-1); LYMPHOCYTES ABSOLUTE AUTO 0.61 K/mm3 (0.84-5.20); LYMPHOCYTES PERCENT AUTO 10 % (21-46); MONOCYTES PERCENT AUTO 15 % (4-13); Mean Corpuscular HGB Conc 34.4 g/dL (31.5-36.5); Mean Corpuscular Volume 87 fL (80-100); Mean Platelet Volume 9.8 fL (9.1-12.4); NEUTROPHILS ABSOLUTE AUTO 4.54 K/mm3 (1.96-9.15); NEUTROPHILS PERCENT AUTO 73 % (41-73); Platelet Count 219 K/mm3 (150-400); RDW Coefficient Variation 14.1 % (11.7-14.2); Red Blood Cell Count 4.07 M/mm3 (4.30-5.90); White Blood Cell Count 6.19 K/mm3 (4.00-11.30)
[2022-02-09] MEDS ORDERED: DONEPEZIL HCL5 M2 PO (19:22)
[2022-02-09 19:48] LABS: Albumin, Blood 3.8 g/dL (3.4-5.0); Albumin/Globulin Ratio 1.1 (0.8-1.8); Bilirubin, Total 0.4 mg/dL (0.1-1.0); Bun/Creatinine Ratio 15.2 (12.0-20.0); Calcium, Blood 9.1 mg/dL (8.5-10.1); Creatinine, Blood 1.32 mg/dL (0.60-1.20); Globulin, Blood 3.4 g/dL (2.2-4.0); Potassium, Blood 4.3 mmol/L (3.5-5.5); Total Protein, Blood 7.2 g/dL (6.4-8.2)
[2022-02-09 19:51] LABS: Influenza A, PCR NEGATIVE (NEGATIVE); Influenza B, PCR NEGATIVE (NEGATIVE); Resp Syncytial Virus, PCR NEGATIVE (NEGATIVE)
[2022-02-09 22:11] LABS: SARS-Cov-2 (COVID-19) PCR, MMC POSITIVE (NEGATIVE)
== END 2022-02-09 23:55 | disposition home or self-care (01) ==
LOC: ER 18:45
PROVIDERS: Student in an Organized Health Care Education/Training Program
DX: U07.1 COVID-19 (principal); R10.9 Unspecified abdominal pain; G89.29 Other chronic pain; J43.9 Emphysema, unspecified; I25.2 Old myocardial infarction; Z87.891 Personal history of nicotine dependence; Z79.899 Other long term (current) drug therapy
CPT/HCPCS: 0241U; 36415; 71046; 74177; 80053; 83605; 83690; 84484; 85025; 93005; 93010; A9270; J7030; Q9967

== ENCOUNTER 2022-05-17 06:04 | Day surgery (SDC) | payer MEDICARE, BC ==
[~2022-05-17] VITALS: Ht 175.3 cm; Wt 87.8 kg
[~2022-05-17 06:04] MED LIST changes: +DONEPEZIL HCL5 M2 PO
--- NOTE | 2022-05-17 06:46 | NUR ---
05/17/22 0646 Rox Lopez 0657 PLEDGET AT 0211
--- NOTE | 2022-05-17 08:33 | NUR ---
05/17/22 0833 Rosalind London LATE ENTRY: CONSULTED DR VIERA D/T WHEEZING THROUGHOUT LUNGS, PER DR VIERA INSTRUCT TO USE NEBULIZER AT HOME AND OK TO DISCHARGE
== END 2022-05-17 08:26 | disposition home or self-care (01) ==
LOC: ORSCSDS 06:04
PROVIDERS: Student in an Organized Health Care Education/Training Program
PROC: 08RK3JZ Replacement of Left Lens with Synthetic Substitute, Percutaneous Approach (ICD-10-PCS; principal; 2022-05-17 07:30)
DX: H25.12 Age-related nuclear cataract, left eye (principal); H21.81 Floppy iris syndrome; Z87.891 Personal history of nicotine dependence; I10 Essential (primary) hypertension; Z79.899 Other long term (current) drug therapy; J44.9 Chronic obstructive pulmonary disease, unspecified
CPT/HCPCS: J2001; J2250; J3010; J7040; V2632

== ENCOUNTER 2022-10-07 08:59 | Inpatient (IN) | payer MEDICARE, BC ==
[~2022-10-07] VITALS: Ht 175.3 cm; Wt 87.2 kg
[2022-10-07 09:45] LABS: BASOPHILS ABSOLUTE AUTO 0.03 K/mm3 (0.00-0.23); BASOPHILS PERCENT AUTO 0 % (0-2); EOSINOPHILS ABSOLUTE AUTO 0.18 K/mm3 (0.00-0.68); EOSINOPHILS PERCENT AUTO 2 % (0-6); Hematocrit 36.1 % (37.0-53.0); Hemoglobin 12.1 g/dL (13.5-17.5); IMMATURE GRAN ABSOLUTE AUTO 0.02 K/mm3 (0.00-0.10); IMMATURE GRAN PERCENT AUTO 0 % (0-1); LYMPHOCYTES ABSOLUTE AUTO 1.67 K/mm3 (0.84-5.20); LYMPHOCYTES PERCENT AUTO 19 % (21-46); MONOCYTES ABSOLUTE AUTO 0.67 K/mm3 (0.16-1.47); MONOCYTES PERCENT AUTO 8 % (4-13); Mean Corpuscular HGB 29.5 pg (26.0-34.0); Mean Corpuscular HGB Conc 33.5 g/dL (31.5-36.5); Mean Corpuscular Volume 88 fL (80-100); Mean Platelet Volume 9.8 fL (9.1-12.4); NEUTROPHILS ABSOLUTE AUTO 6.06 K/mm3 (1.96-9.15); NEUTROPHILS PERCENT AUTO 70 % (41-73); Platelet Count 252 K/mm3 (150-400); RDW Coefficient Variation 14.1 % (11.7-14.2); RDW Standard Deviation 45.3 fL (35.1-46.3); White Blood Cell Count 8.63 K/mm3 (4.00-11.30)
[2022-10-07 10:03] LABS: Albumin, Blood 3.5 g/dL (3.4-5.0); Albumin/Globulin Ratio 0.9 (0.8-1.8); Bilirubin, Total 0.3 mg/dL (0.1-1.0); Bun/Creatinine Ratio 16.7 (12.0-20.0); Calcium, Blood 9.2 mg/dL (8.5-10.1); Creatinine, Blood 1.14 mg/dL (0.60-1.20); Globulin, Blood 3.8 g/dL (2.2-4.0); Potassium, Blood 4.6 mmol/L (3.5-5.5); Total Protein, Blood 7.3 g/dL (6.4-8.2)
[2022-10-07 13:07] LABS: BASOPHILS ABSOLUTE AUTO 0.02 K/mm3 (0.00-0.23); BASOPHILS PERCENT AUTO 0 % (0-2); EOSINOPHILS PERCENT AUTO 1 % (0-6); Hematocrit 33.1 % (37.0-53.0); Hemoglobin 11.3 g/dL (13.5-17.5); IMMATURE GRAN ABSOLUTE AUTO 0.03 K/mm3 (0.00-0.10); IMMATURE GRAN PERCENT AUTO 0 % (0-1); LYMPHOCYTES ABSOLUTE AUTO 1.79 K/mm3 (0.84-5.20); LYMPHOCYTES PERCENT AUTO 23 % (21-46); MONOCYTES ABSOLUTE AUTO 0.55 K/mm3 (0.16-1.47); MONOCYTES PERCENT AUTO 7 % (4-13); Mean Corpuscular HGB Conc 34.1 g/dL (31.5-36.5); Mean Corpuscular Volume 88 fL (80-100); Mean Platelet Volume 9.8 fL (9.1-12.4); NEUTROPHILS ABSOLUTE AUTO 5.48 K/mm3 (1.96-9.15); NEUTROPHILS PERCENT AUTO 69 % (41-73); Platelet Count 227 K/mm3 (150-400); RDW Coefficient Variation 14.4 % (11.7-14.2); RDW Standard Deviation 45.5 fL (35.1-46.3); Red Blood Cell Count 3.77 M/mm3 (4.30-5.90); White Blood Cell Count 7.97 K/mm3 (4.00-11.30)
[2022-10-07 13:42] LABS: BASOPHILS ABSOLUTE AUTO 0.02 K/mm3 (0.00-0.23); BASOPHILS PERCENT AUTO 0 % (0-2); EOSINOPHILS ABSOLUTE AUTO 0.12 K/mm3 (0.00-0.68); EOSINOPHILS PERCENT AUTO 2 % (0-6); Hematocrit 32.8 % (37.0-53.0); Hemoglobin 11.2 g/dL (13.5-17.5); IMMATURE GRAN ABSOLUTE AUTO 0.02 K/mm3 (0.00-0.10); IMMATURE GRAN PERCENT AUTO 0 % (0-1); LYMPHOCYTES ABSOLUTE AUTO 1.65 K/mm3 (0.84-5.20); LYMPHOCYTES PERCENT AUTO 22 % (21-46); MONOCYTES ABSOLUTE AUTO 0.59 K/mm3 (0.16-1.47); MONOCYTES PERCENT AUTO 8 % (4-13); Mean Corpuscular HGB 29.7 pg (26.0-34.0); Mean Corpuscular HGB Conc 34.1 g/dL (31.5-36.5); Mean Corpuscular Volume 87 fL (80-100); Mean Platelet Volume 9.4 fL (9.1-12.4); NEUTROPHILS ABSOLUTE AUTO 5.18 K/mm3 (1.96-9.15); NEUTROPHILS PERCENT AUTO 68 % (41-73); Platelet Count 218 K/mm3 (150-400); RDW Coefficient Variation 14.1 % (11.7-14.2); RDW Standard Deviation 45.1 fL (35.1-46.3); Red Blood Cell Count 3.77 M/mm3 (4.30-5.90); White Blood Cell Count 7.58 K/mm3 (4.00-11.30)
[2022-10-07 14:09] LABS: Bun/Creatinine Ratio 17.6 (12.0-20.0); Calcium, Blood 9.1 mg/dL (8.5-10.1); Creatinine, Blood 1.08 mg/dL (0.60-1.20); Potassium, Blood 4.9 mmol/L (3.5-5.5)
[2022-10-07 17:36] LABS: BASOPHILS ABSOLUTE AUTO 0.02 K/mm3 (0.00-0.23); BASOPHILS PERCENT AUTO 0 % (0-2); EOSINOPHILS ABSOLUTE AUTO 0.12 K/mm3 (0.00-0.68); EOSINOPHILS PERCENT AUTO 2 % (0-6); Hematocrit 31.5 % (37.0-53.0); Hemoglobin 10.6 g/dL (13.5-17.5); IMMATURE GRAN ABSOLUTE AUTO 0.02 K/mm3 (0.00-0.10); IMMATURE GRAN PERCENT AUTO 0 % (0-1); LYMPHOCYTES ABSOLUTE AUTO 1.74 K/mm3 (0.84-5.20); LYMPHOCYTES PERCENT AUTO 26 % (21-46); MONOCYTES ABSOLUTE AUTO 0.57 K/mm3 (0.16-1.47); MONOCYTES PERCENT AUTO 8 % (4-13); Mean Corpuscular HGB 29.4 pg (26.0-34.0); Mean Corpuscular HGB Conc 33.7 g/dL (31.5-36.5); Mean Corpuscular Volume 88 fL (80-100); Mean Platelet Volume 9.7 fL (9.1-12.4); NEUTROPHILS ABSOLUTE AUTO 4.32 K/mm3 (1.96-9.15); NEUTROPHILS PERCENT AUTO 64 % (41-73); Platelet Count 222 K/mm3 (150-400); RDW Coefficient Variation 14.4 % (11.7-14.2); RDW Standard Deviation 45.8 fL (35.1-46.3); White Blood Cell Count 6.79 K/mm3 (4.00-11.30)
[2022-10-07 18:55] VITALS: BP 165/72
--- NOTE | 2022-10-07 19:13 | NUR ---
THIS RN ASSUMED CARE AT 1850. RECEIVED REPORT AT 1830 FROM ED NURSE. PT A&OX4 ABLE TO MAKE NEEDS KNOWN. PT TRANSFERRED TO PCU BED FROM ED BED ON HIS OWN WITH SBA. PT STATED HE'S HAVING BOUTS OF DIZZINESS. PT TRANSFERED WITH ALL OF HIS BELONGINGS. PT IN ROOM CALLING . VITALS STABLE, PT ON RM O2 > 93%, HR SB WHICH PT STATED IS NORMAL FOR HIM 40'S-60'S. PT RESTING IN BED, CALL LIGHT WITHIN REACH.
[2022-10-07 21:30] LABS: BASOPHILS ABSOLUTE AUTO 0.02 K/mm3 (0.00-0.23); BASOPHILS PERCENT AUTO 0 % (0-2); EOSINOPHILS PERCENT AUTO 3 % (0-6); Hematocrit 32.9 % (37.0-53.0); Hemoglobin 11.2 g/dL (13.5-17.5); IMMATURE GRAN ABSOLUTE AUTO 0.02 K/mm3 (0.00-0.10); IMMATURE GRAN PERCENT AUTO 0 % (0-1); LYMPHOCYTES ABSOLUTE AUTO 2.64 K/mm3 (0.84-5.20); LYMPHOCYTES PERCENT AUTO 36 % (21-46); MONOCYTES ABSOLUTE AUTO 0.54 K/mm3 (0.16-1.47); MONOCYTES PERCENT AUTO 7 % (4-13); Mean Corpuscular HGB 29.7 pg (26.0-34.0); Mean Corpuscular Volume 87 fL (80-100); Mean Platelet Volume 9.5 fL (9.1-12.4); NEUTROPHILS ABSOLUTE AUTO 4.01 K/mm3 (1.96-9.15); NEUTROPHILS PERCENT AUTO 54 % (41-73); Platelet Count 220 K/mm3 (150-400); RDW Coefficient Variation 14.4 % (11.7-14.2); RDW Standard Deviation 45.9 fL (35.1-46.3); Red Blood Cell Count 3.77 M/mm3 (4.30-5.90); White Blood Cell Count 7.43 K/mm3 (4.00-11.30)
[2022-10-07 21:37] VITALS: BP 148/61
[2022-10-08 00:46] VITALS: BP 130/58
[2022-10-08 01:11] LABS: BASOPHILS ABSOLUTE AUTO 0.02 K/mm3 (0.00-0.23); BASOPHILS PERCENT AUTO 0 % (0-2); EOSINOPHILS ABSOLUTE AUTO 0.22 K/mm3 (0.00-0.68); EOSINOPHILS PERCENT AUTO 3 % (0-6); Hematocrit 33.2 % (37.0-53.0); Hemoglobin 11.4 g/dL (13.5-17.5); IMMATURE GRAN ABSOLUTE AUTO 0.03 K/mm3 (0.00-0.10); IMMATURE GRAN PERCENT AUTO 0 % (0-1); LYMPHOCYTES ABSOLUTE AUTO 1.88 K/mm3 (0.84-5.20); LYMPHOCYTES PERCENT AUTO 28 % (21-46); MONOCYTES ABSOLUTE AUTO 0.55 K/mm3 (0.16-1.47); MONOCYTES PERCENT AUTO 8 % (4-13); Mean Corpuscular HGB 29.8 pg (26.0-34.0); Mean Corpuscular HGB Conc 34.3 g/dL (31.5-36.5); Mean Corpuscular Volume 87 fL (80-100); Mean Platelet Volume 9.5 fL (9.1-12.4); NEUTROPHILS PERCENT AUTO 60 % (41-73); Platelet Count 218 K/mm3 (150-400); RDW Coefficient Variation 14.3 % (11.7-14.2); RDW Standard Deviation 45.6 fL (35.1-46.3); Red Blood Cell Count 3.83 M/mm3 (4.30-5.90)
[2022-10-08 03:51] VITALS: BP 129/42
[2022-10-08 05:04] LABS: BASOPHILS ABSOLUTE AUTO 0.02 K/mm3 (0.00-0.23); BASOPHILS PERCENT AUTO 0 % (0-2); EOSINOPHILS ABSOLUTE AUTO 0.32 K/mm3 (0.00-0.68); EOSINOPHILS PERCENT AUTO 5 % (0-6); Hematocrit 33.2 % (37.0-53.0); Hemoglobin 11.3 g/dL (13.5-17.5); IMMATURE GRAN ABSOLUTE AUTO 0.01 K/mm3 (0.00-0.10); IMMATURE GRAN PERCENT AUTO 0 % (0-1); LYMPHOCYTES PERCENT AUTO 23 % (21-46); MONOCYTES ABSOLUTE AUTO 0.65 K/mm3 (0.16-1.47); MONOCYTES PERCENT AUTO 9 % (4-13); Mean Corpuscular Volume 88 fL (80-100); Mean Platelet Volume 9.8 fL (9.1-12.4); NEUTROPHILS ABSOLUTE AUTO 4.43 K/mm3 (1.96-9.15); NEUTROPHILS PERCENT AUTO 63 % (41-73); Platelet Count 227 K/mm3 (150-400); RDW Coefficient Variation 14.3 % (11.7-14.2); RDW Standard Deviation 46.5 fL (35.1-46.3); Red Blood Cell Count 3.77 M/mm3 (4.30-5.90); White Blood Cell Count 7.03 K/mm3 (4.00-11.30)
[2022-10-08 05:26] LABS: Albumin, Blood 3.1 g/dL (3.4-5.0); Bilirubin, Total 0.5 mg/dL (0.1-1.0); Bun/Creatinine Ratio 12.5 (12.0-20.0); Calcium, Blood 8.5 mg/dL (8.5-10.1); Creatinine, Blood 1.28 mg/dL (0.60-1.20); Potassium, Blood 4.6 mmol/L (3.5-5.5); Total Protein, Blood 6.1 g/dL (6.4-8.2)
[2022-10-08 07:03] VITALS: BP 130/55
[2022-10-08 10:07] LABS: BASOPHILS ABSOLUTE AUTO 0.03 K/mm3 (0.00-0.23); BASOPHILS PERCENT AUTO 0 % (0-2); EOSINOPHILS ABSOLUTE AUTO 0.29 K/mm3 (0.00-0.68); EOSINOPHILS PERCENT AUTO 4 % (0-6); Hematocrit 34.3 % (37.0-53.0); Hemoglobin 11.7 g/dL (13.5-17.5); IMMATURE GRAN ABSOLUTE AUTO 0.02 K/mm3 (0.00-0.10); IMMATURE GRAN PERCENT AUTO 0 % (0-1); LYMPHOCYTES ABSOLUTE AUTO 2.34 K/mm3 (0.84-5.20); LYMPHOCYTES PERCENT AUTO 31 % (21-46); MONOCYTES ABSOLUTE AUTO 0.55 K/mm3 (0.16-1.47); MONOCYTES PERCENT AUTO 7 % (4-13); Mean Corpuscular HGB 29.8 pg (26.0-34.0); Mean Corpuscular HGB Conc 34.1 g/dL (31.5-36.5); Mean Corpuscular Volume 88 fL (80-100); Mean Platelet Volume 9.6 fL (9.1-12.4); NEUTROPHILS ABSOLUTE AUTO 4.34 K/mm3 (1.96-9.15); NEUTROPHILS PERCENT AUTO 57 % (41-73); Platelet Count 218 K/mm3 (150-400); RDW Coefficient Variation 14.4 % (11.7-14.2); RDW Standard Deviation 46.2 fL (35.1-46.3); Red Blood Cell Count 3.92 M/mm3 (4.30-5.90); White Blood Cell Count 7.57 K/mm3 (4.00-11.30)
[2022-10-08 12:27] VITALS: BP 152/72
--- NOTE | 2022-10-08 13:32 | NUR ---
PT A&OX4, ABLE TO MAKE NEEDS KNOWN. DR. TORRES WAS BY TO SPEAK WITH PT THIS MORNING. PT STATED 0/10 PAIN. PT DENIES NAUSEA/VOMITING/ CHEST PAIN/PRESSURE. NO HEMATEMESIS SINCE ADMISSION. VITALS STABLE, HR SB 40'S-50'S, PT STATED SB IS NORMAL FOR HIM. OCCASIONAL DIZZINESS/LIGHT HEADED W/EXERTION. O2 ABOVE 93% ON RA. PT VISITING WITH GUEST IN HIS ROOM. PT WAS ADVANCED TO CLEAR LIQUIDS AND TOLERATING WELL. PT RESTING IN BED & CALL LIGHT WITHIN REACH.
[2022-10-08 15:37] VITALS: BP 138/43
--- NOTE | 2022-10-08 17:28 | NUR ---
SHIFT SUMMAR PT A&OX4, PLEASANT AND COOPERATIVE WITH CARE. PT DENIED CHEST PAIN/PRESSURE, HR SB 40'S-50'S, PT STATED SB IS HIS BASELINE. 02 SAT ABOVE 93% ON RA, OCCASIONAL SOB W/EXERTION. PT VISITED WITH GUEST FOR A BRIEF PERIOD THIS MORNING. PT NOTIFIED THAT [facility] IN [place] ACCEPTED HIM, BUT DOES NOT HAVE A BED YET. AROUND 1537 VITALS PT STATED ABDOMEN WAS TENDER TO THE TOUCH AND HE WAS NAUSEOUS. PT WAS MEDICATED PER EMAR AND FELL ASLEEP SHORTLY AFTER. VITALS STABLE. PT RESTING IN BED, CALL LIGHT WITHIN REACH.
[2022-10-08 19:59] VITALS: BP 153/54
[2022-10-09 00:01] VITALS: BP 139/61
--- NOTE | 2022-10-09 04:29 | NUR ---
SHIFT SUMMARY NO ACUTE CHANGES TO REPORT OVERNIGHT, PT HAS RESTED T/O THE SHIFT AND HAS DENIED NEEDS. AMBULATES WITH SBA IN ROOM. PT DENIES ABD PAIN, NO N/V. TOLEARING CLEAR LIQUID DIET. VITALS HAVE BEEN STABLE, PT STILL AWAITING TRANSFER AT THIS TIME. PLAN OF CARE UNCHANGED.
[2022-10-09 04:33] VITALS: BP 137/53
[2022-10-09 07:18] LABS: BASOPHILS ABSOLUTE AUTO 0.02 K/mm3 (0.00-0.23); BASOPHILS PERCENT AUTO 0 % (0-2); EOSINOPHILS PERCENT AUTO 8 % (0-6); Hematocrit 34.5 % (37.0-53.0); Hemoglobin 11.7 g/dL (13.5-17.5); IMMATURE GRAN ABSOLUTE AUTO 0.01 K/mm3 (0.00-0.10); IMMATURE GRAN PERCENT AUTO 0 % (0-1); LYMPHOCYTES ABSOLUTE AUTO 1.68 K/mm3 (0.84-5.20); LYMPHOCYTES PERCENT AUTO 26 % (21-46); MONOCYTES PERCENT AUTO 9 % (4-13); Mean Corpuscular HGB 29.7 pg (26.0-34.0); Mean Corpuscular HGB Conc 33.9 g/dL (31.5-36.5); Mean Corpuscular Volume 88 fL (80-100); Mean Platelet Volume 9.6 fL (9.1-12.4); NEUTROPHILS ABSOLUTE AUTO 3.56 K/mm3 (1.96-9.15); NEUTROPHILS PERCENT AUTO 56 % (41-73); Platelet Count 226 K/mm3 (150-400); RDW Standard Deviation 45.3 fL (35.1-46.3); Red Blood Cell Count 3.94 M/mm3 (4.30-5.90); White Blood Cell Count 6.37 K/mm3 (4.00-11.30)
[2022-10-09 07:36] LABS: Bun/Creatinine Ratio 10.2 (12.0-20.0); Calcium, Blood 8.4 mg/dL (8.5-10.1); Creatinine, Blood 1.28 mg/dL (0.60-1.20); Potassium, Blood 4.1 mmol/L (3.5-5.5)
[2022-10-09 08:50] VITALS: BP 134/60
--- NOTE | 2022-10-09 09:50 | NUR ---
PT'S HR HAS REMAINED IN THE LOW TO MID 40s SINCE ASSUMING PT CARE. THE DECISION WAS MADE TO HOLD METOPROLOL AND CLARIFY WITH MD ABOUT PARAMETERS. PT DENIES SYMTPOMS OF LOW HR WHILE IN BED. OTHERWISE VITALS ARE STABLE
[2022-10-09 12:57] VITALS: BP 144/59
[2022-10-09 15:14] VITALS: BP 150/58
[2022-10-09 15:20] VITALS: BP 150/58
--- NOTE | 2022-10-09 15:52 | NUR ---
REPORT CALLED TO ESHA BAUTISTA AT [facility] WHO WILL BE ASSUMING CARE
--- NOTE | 2022-10-09 17:24 | NUR ---
PT HAS LEFT WITH EMS TRANSFER CREW. PT REFUSED TO ALLOW D5 INFUSION TO CONTINUE FOR TRANSFER, CREW IS AWARE THAT PT HAS REFUSED FLUIDS TO CONTINUE THEY WERE IN THE ROOM WHEN THE FLUIDS WERE STOPPED. HE WAS ABLE TO WALK TO [facility] HE APPEARS TO BE OFF BALANCE ALTHOUGH HE DENIES BEING UNSTEADY OR DIZZY
== END 2022-10-09 16:55 | disposition short-term general hospital (02) | DRG 378 ==
LOC: ER 08:59 → ERHOLD 17:03 → PCU 18:59
PROVIDERS: Emergency Medicine; Physician Assistant; ADMIT Internal Medicine
DX: K92.0 Hematemesis (principal); C15.9 Malignant neoplasm of esophagus, unspecified; D62 Acute posthemorrhagic anemia; C78.02 Secondary malignant neoplasm of left lung; C78.01 Secondary malignant neoplasm of right lung; I25.10 Atherosclerotic heart disease of native coronary artery without angina pectoris; N40.0 Benign prostatic hyperplasia without lower urinary tract symptoms; F10.11 Alcohol abuse, in remission; K20.90 Esophagitis, unspecified without bleeding; I73.9 Peripheral vascular disease, unspecified; J44.9 Chronic obstructive pulmonary disease, unspecified; K22.89 Other specified disease of esophagus; I10 Essential (primary) hypertension; Z95.1 Presence of aortocoronary bypass graft; Z88.8 Allergy status to other drugs, medicaments and biological substances; Z79.899 Other long term (current) drug therapy; Z79.82 Long term (current) use of aspirin; I25.2 Old myocardial infarction; Z98.890 Other specified postprocedural states; Z90.49 Acquired absence of other specified parts of digestive tract; Z87.891 Personal history of nicotine dependence; Z90.89 Acquired absence of other organs; Z88.1 Allergy status to other antibiotic agents; Z87.11 Personal history of peptic ulcer disease
CPT/HCPCS: 36415; 71045; 71260; 74177; 80048; 80053; 83690; 83880; 84145; 84484; 85025; 86850; 86900; 86901; 93005; 93010; 94640; 94664; 94760; 94762; 96365-59; 96367-59; 96375-59; 96376-59; 99285-25; A9270; C9113; J0295; J2354; J2405; J7030; J7042; J7050; Q9967

== ENCOUNTER 2022-11-08 17:35 | Emergency (ER) | payer MEDICARE, BC ==
[~2022-11-08] VITALS: Ht 172.7 cm; Wt 86.2 kg
[2022-11-08 18:22] VITALS: BP 131/63
[2022-11-08] MEDS ORDERED: Neurontin 100100 MG PO (20:12)
[2022-11-08] MEDS ORDERED: LIDO700A20 TOP (20:12)
== END 2022-11-08 20:31 | disposition home or self-care (01) ==
LOC: ER 17:35
DX: M54.50 Low back pain, unspecified (principal); I25.2 Old myocardial infarction; J44.9 Chronic obstructive pulmonary disease, unspecified; Z88.1 Allergy status to other antibiotic agents; Z88.8 Allergy status to other drugs, medicaments and biological substances; Z79.899 Other long term (current) drug therapy; Z79.82 Long term (current) use of aspirin; Z87.891 Personal history of nicotine dependence
CPT/HCPCS: 72100; 96372; 99283-25; A9270; J1885

== ENCOUNTER 2023-01-27 07:13 | Emergency (ER) | payer MEDICARE, BC ==
[~2023-01-27] VITALS: Ht 172.7 cm; Wt 88.5 kg
[~2023-01-27 07:13] MED LIST changes: +LIDO700A20 TOP; +Neurontin 100100 MG PO
[2023-01-27 08:03] LABS: Hematocrit 28.8 % (37.0-53.0); Hemoglobin 9.6 g/dL (13.5-17.5); Mean Corpuscular HGB 29.1 pg (26.0-34.0); Mean Corpuscular HGB Conc 33.3 g/dL (31.5-36.5); Mean Corpuscular Volume 87 fL (80-100); Mean Platelet Volume 10.4 fL (9.1-12.4); RDW Coefficient Variation 13.8 % (11.7-14.2); RDW Standard Deviation 44.3 fL (35.1-46.3)
[2023-01-27 08:10] LABS: Platelet Count 72 K/mm3 (150-400)
[2023-01-27 08:38] LABS: Albumin, Blood 3.1 g/dL (3.4-5.0); Bilirubin, Total 0.3 mg/dL (0.1-1.0); Bun/Creatinine Ratio 15.7 (12.0-20.0); Calcium, Blood 8.4 mg/dL (8.5-10.1); Creatinine, Blood 1.15 mg/dL (0.60-1.20); Globulin, Blood 3.2 g/dL (2.2-4.0); Potassium, Blood 4.3 mmol/L (3.5-5.5); Total Protein, Blood 6.3 g/dL (6.4-8.2)
[2023-01-27 08:44] LABS: BAND PERCENT MAN 12 % (0-8); BASOPHILS PERCENT MAN 0 % (0-2); EOSINOPHILS ABSOLUTE MAN 0.09 K/mm3 (0.00-0.68); EOSINOPHILS PERCENT MAN 3 % (0-6); LYMPHOCYTES % ATYPICAL MANUAL 4 % (0-0); LYMPHOCYTES ABSOLUTE MAN 1.76 K/mm3 (0.84-5.20); LYMPHOCYTES PERCENT MAN 51 % (21-46); MONOCYTES ABSOLUTE MAN 0.35 K/mm3 (0.16-1.47); MONOCYTES PERCENT MAN 11 % (4-13); NEUTROPHILS ABSOLUTE MAN 0.96 K/mm3 (1.96-9.15); SEG NEUTROPHILS PERCENT MAN 18 % (41-73); TOTAL CELLS COUNTED 100
[2023-01-27 08:45] LABS: PROMYELOCYTE ABSOLUTE MAN 0.03 K/mm3 (0.00-0.00); PROMYELOCYTE PERCENT MAN 1 % (0-0)
[2023-01-27 12:12] VITALS: BP 134/58
== END 2023-01-27 12:13 | disposition home or self-care (01) ==
LOC: ER 07:13
PROVIDERS: Emergency Medicine
DX: R07.9 Chest pain, unspecified (principal); R06.2 Wheezing; R06.02 Shortness of breath; C34.90 Malignant neoplasm of unspecified part of unspecified bronchus or lung; Z87.891 Personal history of nicotine dependence; Z79.899 Other long term (current) drug therapy; J44.9 Chronic obstructive pulmonary disease, unspecified; Z86.74 Personal history of sudden cardiac arrest; Z88.1 Allergy status to other antibiotic agents; Z88.8 Allergy status to other drugs, medicaments and biological substances; Z79.82 Long term (current) use of aspirin
CPT/HCPCS: 71046; 80053; 83690; 84484; 85025; 99285-25; A9270

== ENCOUNTER 2023-02-10 15:28 | Emergency (ER) | payer MEDICARE, BC ==
[~2023-02-10] VITALS: Ht 172.7 cm; Wt 90.3 kg
[2023-02-10 16:00] LABS: Hematocrit 32.3 % (37.0-53.0); Hemoglobin 10.9 g/dL (13.5-17.5); Mean Corpuscular HGB 29.6 pg (26.0-34.0); Mean Corpuscular HGB Conc 33.7 g/dL (31.5-36.5); Mean Corpuscular Volume 88 fL (80-100); Mean Platelet Volume 9.8 fL (9.1-12.4); Platelet Count 436 K/mm3 (150-400); RDW Coefficient Variation 16.2 % (11.7-14.2); RDW Standard Deviation 49.2 fL (35.1-46.3); Red Blood Cell Count 3.68 M/mm3 (4.30-5.90); White Blood Cell Count 16.11 K/mm3 (4.00-11.30)
[2023-02-10 16:21] LABS: Albumin, Blood 3.6 g/dL (3.4-5.0); Albumin/Globulin Ratio 1.1 (0.8-1.8); BAND PERCENT MAN 2 % (0-8); BASOPHILS PERCENT MAN 0 % (0-2); Bilirubin, Total 0.5 mg/dL (0.1-1.0); Bun/Creatinine Ratio 22.9 (12.0-20.0); Calcium, Blood 8.7 mg/dL (8.5-10.1); Creatinine, Blood 1.05 mg/dL (0.60-1.20); EOSINOPHILS PERCENT MAN 0 % (0-6); Globulin, Blood 3.3 g/dL (2.2-4.0); LYMPHOCYTES ABSOLUTE MAN 0.32 K/mm3 (0.84-5.20); LYMPHOCYTES PERCENT MAN 2 % (21-46); MONOCYTES PERCENT MAN 0 % (4-13); NEUTROPHILS ABSOLUTE MAN 15.78 K/mm3 (1.96-9.15); Potassium, Blood 4.5 mmol/L (3.5-5.5); SEG NEUTROPHILS PERCENT MAN 96 % (41-73); TOTAL CELLS COUNTED 100; Total Protein, Blood 6.9 g/dL (6.4-8.2)
[2023-02-10 17:33] LABS: Adenovirus Not Detected (NOT DETECT); Bordetella pertussis Not Detected (NOT DETECT); Chlamydophila pneumoniae Not Detected (NOT DETECT); Coronavirus 229E Not Detected (NOT DETECT); Coronavirus HKU1 Not Detected (NOT DETECT); Coronavirus NL63 Not Detected (NOT DETECT); Coronavirus OC43 Not Detected (NOT DETECT); Human Metapneumovirus Not Detected (NOT DETECT); Human Rhinovirus/Enterovirus Not Detected (NOT DETECT); Influenza A/2009-H1 Not Detected (NOT DETECT); Influenza A/H1 Not Detected (NOT DETECT); Influenza A/H3 Not Detected (NOT DETECT); Influenza B Not Detected (NOT DETECT); Mycoplasma pneumoniae Not Detected (NOT DETECT); Parainfluenza Virus 1 Not Detected (NOT DETECT); Parainfluenza Virus 2 Not Detected (NOT DETECT); Parainfluenza Virus 3 Not Detected (NOT DETECT); Parainfluenza Virus 4 Not Detected (NOT DETECT); Respiratory Syncytial Virus Not Detected (NOT DETECT); SARS-Cov-2 (COVID-19), BioFire Detected (NOT DETECT)
[2023-02-10 18:00] VITALS: BP 130/54
== END 2023-02-10 18:25 | disposition home or self-care (01) ==
LOC: ER 15:28
PROVIDERS: Student in an Organized Health Care Education/Training Program
DX: U07.1 COVID-19 (principal); D72.829 Elevated white blood cell count, unspecified; D64.9 Anemia, unspecified; Z88.1 Allergy status to other antibiotic agents; Z88.8 Allergy status to other drugs, medicaments and biological substances; Z79.1 Long term (current) use of non-steroidal anti-inflammatories (NSAID); Z79.82 Long term (current) use of aspirin; Z79.899 Other long term (current) drug therapy; J44.9 Chronic obstructive pulmonary disease, unspecified; I25.2 Old myocardial infarction; Z87.01 Personal history of pneumonia (recurrent)
CPT/HCPCS: 0202U; 71046; 80053; 85025; 93005; 93010; 96374; 96375; 99284-25; J1885; J2765

== ENCOUNTER 2023-02-20 08:51 | Inpatient (IN) | payer MEDICARE, BC ==
[~2023-02-20] VITALS: Ht 172.7 cm; Wt 79.9 kg
[2023-02-20 09:43] LABS: BASOPHILS ABSOLUTE AUTO 0.04 K/mm3 (0.00-0.23); BASOPHILS PERCENT AUTO 1 % (0-2); Hematocrit 28.3 % (37.0-53.0); Hemoglobin 9.5 g/dL (13.5-17.5); LYMPHOCYTES ABSOLUTE AUTO 0.76 K/mm3 (0.84-5.20); LYMPHOCYTES PERCENT AUTO 9 % (21-46); MONOCYTES PERCENT AUTO 15 % (4-13); Mean Corpuscular HGB 29.7 pg (26.0-34.0); Mean Corpuscular HGB Conc 33.6 g/dL (31.5-36.5); Mean Corpuscular Volume 88 fL (80-100); Mean Platelet Volume 10.3 fL (9.1-12.4); Platelet Count 83 K/mm3 (150-400); RDW Coefficient Variation 15.3 % (11.7-14.2); RDW Standard Deviation 48.5 fL (35.1-46.3); White Blood Cell Count 8.82 K/mm3 (4.00-11.30)
[2023-02-20 09:44] LABS: EOSINOPHILS ABSOLUTE AUTO 0.01 K/mm3 (0.00-0.68); EOSINOPHILS PERCENT AUTO 0 % (0-6); IMMATURE GRAN ABSOLUTE AUTO 0.22 K/mm3 (0.00-0.10); IMMATURE GRAN PERCENT AUTO 3 % (0-1); NEUTROPHILS ABSOLUTE AUTO 6.49 K/mm3 (1.96-9.15); NEUTROPHILS PERCENT AUTO 74 % (41-73)
[2023-02-20 10:00] LABS: Albumin, Blood 3.1 g/dL (3.4-5.0); Albumin/Globulin Ratio 0.7 (0.8-1.8); Bilirubin, Total 0.4 mg/dL (0.1-1.0); Bun/Creatinine Ratio 17.7 (12.0-20.0); Calcium, Blood 8.9 mg/dL (8.5-10.1); Creatinine, Blood 1.86 mg/dL (0.60-1.20); Globulin, Blood 4.3 g/dL (2.2-4.0); Potassium, Blood 4.6 mmol/L (3.5-5.5); Total Protein, Blood 7.4 g/dL (6.4-8.2)
[2023-02-20 10:43] LABS: Influenza A, PCR NEGATIVE (NEGATIVE); Influenza B, PCR NEGATIVE (NEGATIVE); Resp Syncytial Virus, PCR NEGATIVE (NEGATIVE)
[2023-02-20 10:44] LABS: SARS-Cov-2 (COVID-19) PCR, MMC POSITIVE (NEGATIVE)
[2023-02-20 15:48] VITALS: BP 104/54
[2023-02-20] MEDS ORDERED: FLUT1DIS2 INH (15:58)
--- NOTE | 2023-02-20 16:39 | NUR ---
Upon receiving a request from patient's RN for spiritual care, I visited the patient. He tells me about his long medical history and about the events that led to his current hospital admission. He explains about his [employer] dillon and that Father Nagi had already performed the anointing of the sick with the patient. Patient admits to feeling very anxious. He asks for prayer for peace and healing, which I gladly supply. Patient showed signs of reduced stress and anxiety. I will continue to remain available
--- NOTE | 2023-02-20 17:55 | NUR ---
pt seen in ER. very painfull and fatigued states he has had vomiting and stooling. He is upset he missed his radiation treatment. is at bedside very fatigued and expressing frustration. She is apologetic and withdran. Plan is to admit pt. He want full treatment and to fight. had therputic time with and reviewed caregiver stress and grief. After he was admitted she went home. Pt seen on floor assisted with po intake with good tolerance. Review of meds he is chills and is shivering. fluids started reassured pt of safety will follow up with pronositication.
[2023-02-20 18:25] VITALS: BP 124/70
--- NOTE | 2023-02-20 18:33 | NUR ---
SHIFT SUMMARY- PT ADMITTED THROUGH THE ED. THERE WERE SOME ISSUES WITH THE COMPUTERS AND PIXUS MACHINE THAT DELAYED THE PT RECIEVING IV FLUIDS AFTER HE ARRIVED. CALLED DR ARAGON AND RECIEVED VERBAL ORDER FOR NS AT 175ML/HR FOR 2 BAGS AFTER A 1L FLUID BOLUS. BOLUS IS CURRENTLY RUNNING. PT BP HAS BEEN SOFT SINCE HE ARRIVED AT THE HOSPITAL, SBP 104 HERE, SWITCHED TO A SMALL BP CUFF FOR PROPER FIT AND SBP WAS 120'S. PT IS IN BED EATING DINNER CURRENTLY HE IS COVID POSITIVE WITH RESPIRATORY SYMPTOMS (HE IS CURRENTLY IN TREATMENT FOR LUNG CANCER WELL). PT IS SITTING UP IN BED EATING DINNER, CALL LIGHT IN REACH NO S&S OF DISTRESS AT THIS TIME.
[2023-02-20 20:21] VITALS: BP 97/47
--- NOTE | 2023-02-21 03:57 | NUR ---
NOTE PT RESTING QUIETLY. IVF INFUSING SECOND BAG ON NS INFUSING AT 175 ML/HR. VOIDED X1 DARK, DARK ROSETTA URINE. 300ML. DENIED PAIN. TMAX 100.6. NO LOOSE STOOL. NO COUGH. RA. PT HAS BEEN THIRSTY AND HUNGRY. CARE ONGOING.
[2023-02-21 03:58] VITALS: BP 128/58
[2023-02-21 06:16] LABS: BASOPHILS ABSOLUTE AUTO 0.02 K/mm3 (0.00-0.23); BASOPHILS PERCENT AUTO 0 % (0-2); Hemoglobin 7.9 g/dL (13.5-17.5); LYMPHOCYTES ABSOLUTE AUTO 1.09 K/mm3 (0.84-5.20); LYMPHOCYTES PERCENT AUTO 13 % (21-46); MONOCYTES PERCENT AUTO 11 % (4-13); Mean Corpuscular HGB 29.5 pg (26.0-34.0); Mean Corpuscular HGB Conc 32.9 g/dL (31.5-36.5); Mean Corpuscular Volume 90 fL (80-100); Mean Platelet Volume 10.8 fL (9.1-12.4); Platelet Count 78 K/mm3 (150-400); RDW Coefficient Variation 15.1 % (11.7-14.2); RDW Standard Deviation 48.2 fL (35.1-46.3); Red Blood Cell Count 2.68 M/mm3 (4.30-5.90); White Blood Cell Count 8.28 K/mm3 (4.00-11.30)
[2023-02-21 06:23] LABS: EOSINOPHILS ABSOLUTE AUTO 0.03 K/mm3 (0.00-0.68); EOSINOPHILS PERCENT AUTO 0 % (0-6); IMMATURE GRAN ABSOLUTE AUTO 0.19 K/mm3 (0.00-0.10); IMMATURE GRAN PERCENT AUTO 2 % (0-1); NEUTROPHILS ABSOLUTE AUTO 6.05 K/mm3 (1.96-9.15); NEUTROPHILS PERCENT AUTO 73 % (41-73)
[2023-02-21 06:34] LABS: Albumin, Blood 2.4 g/dL (3.4-5.0); Albumin/Globulin Ratio 0.7 (0.8-1.8); Bilirubin, Total 0.2 mg/dL (0.1-1.0); Bun/Creatinine Ratio 17.2 (12.0-20.0); Calcium, Blood 7.7 mg/dL (8.5-10.1); Creatinine, Blood 1.69 mg/dL (0.60-1.20); Globulin, Blood 3.5 g/dL (2.2-4.0); Magnesium, Blood 1.8 mg/dL (1.6-2.4); Potassium, Blood 4.5 mmol/L (3.5-5.5); Total Protein, Blood 5.9 g/dL (6.4-8.2)
[2023-02-21 08:05] VITALS: BP 127/58
--- NOTE | 2023-02-21 08:32 | NUR ---
CALLED DR ARAGON- PT HAS A VEWS SCORE OF 5, HOWEVER HE IS NOT IN ANY DISTRESS. BP STABLE AT THIS TIME. TEMP IS 101.3 (MEDICATED WITH TYLENOL AT THE TIME OF ASSESSMENT) RESP RATE ELEVATED RATE 30 BPM. RT CAME TO PROVIDE INHALER. AWARE. PT HAS HAD LOW BP'S SINCE ADMIT THE HIGHEST BEING 120'S SYSTOLIC, HOME DOSE METOPROLOL ADMINISTERED HOWEVER HELD LISINOPRIL FOR CLINICAL JUDGEMENT. SPOKE TO DR ARAGON AND RECIEVED ORDER TO HOLD LISINOPRIL TODAY.
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
--- NOTE | 2023-02-21 17:04 | NUR ---
CALLED DR ARAGON- ON CARE ROUNDS 30 MINS OR MORE, THE PT STATES HE IS FEELING MUCH BETTER AND IS HAVING NO NAUSEA. HE REQUESTED LEMONADE, HE DRANK 250ML OR SDO OF THAT AND NOW HAS SEVERE NAUSEA AND THE SHAKES, VITALS CHECK SHOWS FEVER 101.4. GAVE MM BLAYNE HOWEVER CALLED FOR IV OPTION FOR FEVER CONTROL. RECIEVED ORDER FOR 30MG IV TORADOL Q6P FOR PAIN OR FEVER.
--- NOTE | 2023-02-21 20:17 | NUR ---
SHIFT SUMMARY- PT ALERT AND ORIENTED. HE STATED HE WAS BETTER THIS AFTERNOON AND REQUESTED LEMONAID, AFTER DRINKING IT HE WAS SHAKING AND C/O 8/10 PAIN IN THE ABDOMEN AND BEGAN VOMITING. HE VOMITED 100ML, MEDICATED WITH MM ZOFRAN AND IV TORADOL HE ALSO HAD A FEVER OF 101.4 AT THAT TIME. NO TYLENOL WAS GIVEN D/T VOMITING. MD AWARE. PT HAS A KNIT CAP HE KEEPS ON HIS HEAD AT ALL TIMES. WHEN STAFF REMOVE IT FOR HIGH TEMP HE REPLACES IT. UNABLE TO REMOVE BLANKETS WELL, HE DECLINES THAT WELL. PT WORKED WITH PHYSICAL THERAPY AND WAS MADE INDEPENDENT IN THE ROOM LONG HE CALLS FOR ASSISTANCE IF HE IS DIZZY. PT CALLS APPROPRIATELY. REPORT COMPLETED WITH NIGHT RN NO CURRENT S&S OF DISTRESS.
[2023-02-21 20:19] VITALS: BP 119/54
[2023-02-22] VITALS (13 sets, daily range): BP systolic 119–128; BP diastolic 51–61
--- NOTE | 2023-02-22 00:04 | NUR ---
U/A ORDER ORDER EXPLAINED TO PT. CLEAN URINAL AND SPECIMEN CUP PROVIDED TO PT AT BEDSIDE. CARE ONGOING.
[2023-02-22 04:58] LABS: Source, Urine Clean Catch
[2023-02-22 05:14] LABS: Appearance, Urine Clear (Clear); Bilirubin, Urine Neg (Neg); Blood, Urine Neg (Neg); Color, Urine Yellow (P-Yellow); Glucose Qualitative, Urine Neg (Neg); Ketones, Urine Neg (Neg); Leukocyte Esterase, Urine Neg (Neg); Nitrite, Urine Neg (Neg); Protein, Urine 1+ (Neg); Urobilinogen, Urine NORM (Normal)
[2023-02-22 06:27] LABS: Hemoglobin 7.7 g/dL (13.5-17.5); Mean Corpuscular HGB 29.5 pg (26.0-34.0); Mean Corpuscular HGB Conc 33.5 g/dL (31.5-36.5); Mean Corpuscular Volume 88 fL (80-100); Mean Platelet Volume 10.4 fL (9.1-12.4); Platelet Count 95 K/mm3 (150-400); RDW Coefficient Variation 15.4 % (11.7-14.2); RDW Standard Deviation 47.8 fL (35.1-46.3); Red Blood Cell Count 2.61 M/mm3 (4.30-5.90); White Blood Cell Count 7.91 K/mm3 (4.00-11.30)
[2023-02-22 06:52] LABS: Albumin, Blood 2.5 g/dL (3.4-5.0); Albumin/Globulin Ratio 0.7 (0.8-1.8); Bilirubin, Total 0.2 mg/dL (0.1-1.0); Bun/Creatinine Ratio 22.7 (12.0-20.0); Calcium, Blood 8.5 mg/dL (8.5-10.1); Creatinine, Blood 1.28 mg/dL (0.60-1.20); Globulin, Blood 3.5 g/dL (2.2-4.0); Potassium, Blood 4.3 mmol/L (3.5-5.5)
[2023-02-22 08:56] LABS: BAND PERCENT MAN 5 % (0-8); BASOPHILS PERCENT MAN 0 % (0-2); EOSINOPHILS ABSOLUTE MAN 0.15 K/mm3 (0.00-0.68); EOSINOPHILS PERCENT MAN 2 % (0-6); LYMPHOCYTES ABSOLUTE MAN 1.26 K/mm3 (0.84-5.20); LYMPHOCYTES PERCENT MAN 16 % (21-46); MONOCYTES ABSOLUTE MAN 0.39 K/mm3 (0.16-1.47); MONOCYTES PERCENT MAN 5 % (4-13); MYELOCYTE ABSOLUTE MAN 0.07 K/mm3 (0.00-0.00); MYELOCYTE PERCENT MAN 1 % (0-0); NEUTROPHILS ABSOLUTE MAN 6.01 K/mm3 (1.96-9.15); SEG NEUTROPHILS PERCENT MAN 71 % (41-73); TOTAL CELLS COUNTED 100
--- NOTE | 2023-02-22 15:25 | NUR ---
Spiritual care visit conducted. Patient is lying in bed and alert. He tells me that he feels about the same as yesterday and that he is hoping that the blood he will be receiving will assist in pushing toward better health. He then confesses the things that haunt his thoughts. We explore ways of dealing with his past that cultivate inner forgiveness and peace. He talks about the beautiful memories of his childhood and the solitude he is looking forward to in the future. I provide therapeutic listening and prayer. Patient responded well and showed signs of greater peace.
--- NOTE | 2023-02-22 20:29 | NUR ---
SHIFT SUMMARY- PT ALERT, ORIENTED AND INDEPENDENT IN THE ROOM. HE HAD A BLOOD TRANSFUSION TODAY NO SIGN OF REACTION, HE SEEMED TO TOLLERATE THE TRANSFUSION WELL. HE DID START A FEVER NEAR THE END OF THE TRANSFUSION, BUT HAD NO OTHER SYMPTOMS, BP HR, RESP WERE ALL STABLE. MEDICATED WITH TYLENOL, TEMP CAME DOWN IT HAS ON ALL OTHER DAYS. PT WAS ASKED TO REMOVE HIS KNIT CAP AGAIN TO HELP HIS TEMPERATURE NORMALIZE. IV SL AT THE END OF THE TRANSFUSION. PT IN BED AT THE END OF THE SHIFT. NO S&S OF DISTRESS NOTED. REPORT COMPLETED WITH NIGHT RN.
--- NOTE | 2023-02-23 03:35 | NUR ---
SHIFT SUMMARY REMIGIO WAS ALERT AND FULLY ORIENTED ON ASSESSMENT. PT DENIES NEW OR WORSENING COMPLAINTS, SOB AND C/P/PAIN. NO ACUTE EVENTS TONIGHT, NO APARANT CHANGES IN CONDITION. PT IS ABLE TO AMBULATE WITHOUT ASSISTANCE. PT RESTING IN BED AT A LOW POSITION WITH CALL LIGHT IN REACH WHICH HE USES APPROPRIATELY.
[2023-02-23 04:45] VITALS: BP 134/61
[2023-02-23 05:55] LABS: BASOPHILS ABSOLUTE AUTO 0.03 K/mm3 (0.00-0.23); BASOPHILS PERCENT AUTO 0 % (0-2); EOSINOPHILS ABSOLUTE AUTO 0.03 K/mm3 (0.00-0.68); EOSINOPHILS PERCENT AUTO 0 % (0-6); Hematocrit 25.8 % (37.0-53.0); Hemoglobin 8.9 g/dL (13.5-17.5); IMMATURE GRAN ABSOLUTE AUTO 0.38 K/mm3 (0.00-0.10); IMMATURE GRAN PERCENT AUTO 4 % (0-1); LYMPHOCYTES ABSOLUTE AUTO 1.31 K/mm3 (0.84-5.20); LYMPHOCYTES PERCENT AUTO 15 % (21-46); MONOCYTES ABSOLUTE AUTO 0.78 K/mm3 (0.16-1.47); MONOCYTES PERCENT AUTO 9 % (4-13); Mean Corpuscular HGB Conc 34.5 g/dL (31.5-36.5); Mean Corpuscular Volume 87 fL (80-100); NEUTROPHILS ABSOLUTE AUTO 6.36 K/mm3 (1.96-9.15); NEUTROPHILS PERCENT AUTO 72 % (41-73); RDW Coefficient Variation 15.3 % (11.7-14.2); RDW Standard Deviation 46.4 fL (35.1-46.3); Red Blood Cell Count 2.97 M/mm3 (4.30-5.90); White Blood Cell Count 8.89 K/mm3 (4.00-11.30)
[2023-02-23 06:19] LABS: Mean Platelet Volume 10.6 fL (9.1-12.4); Platelet Count 114 K/mm3 (150-400)
[2023-02-23 06:31] LABS: Thyroid Stimulating Hormone 1.04 uIU/mL (0.360-4.800)
[2023-02-23 06:32] LABS: Albumin, Blood 2.4 g/dL (3.4-5.0); Albumin/Globulin Ratio 0.7 (0.8-1.8); Bilirubin, Total 0.4 mg/dL (0.1-1.0); Bun/Creatinine Ratio 17.1 (12.0-20.0); Calcium, Blood 8.5 mg/dL (8.5-10.1); Creatinine, Blood 1.11 mg/dL (0.60-1.20); Globulin, Blood 3.6 g/dL (2.2-4.0); Potassium, Blood 4.6 mmol/L (3.5-5.5)
[2023-02-23 08:36] VITALS: BP 135/62
[2023-02-23 15:11] VITALS: BP 121/56
--- NOTE | 2023-02-23 16:15 | NUR ---
SHIFT SUMMARY PATIENT IS ALERT AND ORIENTED. PATIENT HAS HAD NO ACUTE EVENTS THIS SHIFT. VITAL SIGNS REVIEWED. PATIENT HAS NOT COMPLAINED OF SOB, NAUSEA, VOMITTING OR PAIN THIS SHIFT. PATIENT HAS BEEN IN COVID ISOLATION ALL SHIFT. PATIENT HAS BEEN RESTING MOST OF SHIFT. BED IN LOCKED AND LOWEST POSITION. CALL LIGHT IN PLACE. WILL MONITOR UNTIL SHIFT CHANGE.
[2023-02-23 20:09] VITALS: BP 125/60
--- NOTE | 2023-02-24 01:26 | NUR ---
02/23/23 2300 PT LYING IN BED, EYES CLOSED, WAKES EASILY TO VERBAL STIMULI. DENIES NEED FOR ANYTHING AT THIS TIME. NO APPARENT SIGNS OF DISTRESS. CALL LIGHT IS IN REACH.
--- NOTE | 2023-02-24 01:26 | NUR ---
PT LYING IN BED, EYES CLOSED, APPEARS TO BE RESTING. BREATHING IS EVEN, UNLABORED. NO APPARENT SIGNS OF DISTRESS. CALL LIGHT IS IN REACH.
--- NOTE | 2023-02-24 02:18 | NUR ---
REPORT GIVEN TO ERMELINDA SAMUEL RN WHO IS NOW TAKING OVER CARE OF PT.
[2023-02-24 04:31] VITALS: BP 122/64
--- NOTE | 2023-02-24 05:33 | NUR ---
SHIFT SUMMARY PT A&OX4 AND ANSWERS QUESTIONS APPROPRIATELY. PT ON RA AND MAINTAINING O2 SATURATION OVER 90%. WHEEZING AUSCALTATED THROUGHOUT. PT SLEPT THROUGH SHIFT, NO ACUTE EVENTS OCCURED. PT VSS. PT KEPT IN A POSITION OF SAFETY WITH PROPER FALL PRECAUTIONS IN PLACE AND CALL LIGHT WITHIN REACH.
[2023-02-24 06:10] LABS: BASOPHILS ABSOLUTE AUTO 0.03 K/mm3 (0.00-0.23); BASOPHILS PERCENT AUTO 0 % (0-2); EOSINOPHILS ABSOLUTE AUTO 0.03 K/mm3 (0.00-0.68); EOSINOPHILS PERCENT AUTO 0 % (0-6); Hemoglobin 9.3 g/dL (13.5-17.5); IMMATURE GRAN PERCENT AUTO 5 % (0-1); LYMPHOCYTES ABSOLUTE AUTO 1.24 K/mm3 (0.84-5.20); LYMPHOCYTES PERCENT AUTO 14 % (21-46); MONOCYTES ABSOLUTE AUTO 0.85 K/mm3 (0.16-1.47); MONOCYTES PERCENT AUTO 10 % (4-13); Mean Corpuscular HGB 30.6 pg (26.0-34.0); Mean Corpuscular HGB Conc 34.4 g/dL (31.5-36.5); Mean Corpuscular Volume 89 fL (80-100); Mean Platelet Volume 10.5 fL (9.1-12.4); NEUTROPHILS PERCENT AUTO 71 % (41-73); Platelet Count 150 K/mm3 (150-400); RDW Coefficient Variation 15.5 % (11.7-14.2); Red Blood Cell Count 3.04 M/mm3 (4.30-5.90); White Blood Cell Count 8.75 K/mm3 (4.00-11.30)
[2023-02-24 07:03] LABS: Albumin, Blood 2.3 g/dL (3.4-5.0); Albumin/Globulin Ratio 0.6 (0.8-1.8); Bilirubin, Total 0.3 mg/dL (0.1-1.0); Bun/Creatinine Ratio 14.4 (12.0-20.0); Calcium, Blood 8.6 mg/dL (8.5-10.1); Creatinine, Blood 1.04 mg/dL (0.60-1.20); Potassium, Blood 4.5 mmol/L (3.5-5.5); Total Protein, Blood 6.3 g/dL (6.4-8.2)
[2023-02-24 08:05] VITALS: BP 143/67
--- NOTE | 2023-02-24 12:43 | NUR ---
"Spiritual Care Visit | Director Of [employer] Request Pt. is awake in his bed and welcomes my visit. Pt. is [place]GIUG[place] so we adjusted the volume of our discussion. Facilitated a life review and established rapport as the Pt. grew up in the same city that I did. Listened with interest, empathy and a calm yet encouraging spirit. The Pt. displayed evidence of trust, engagement, and awareness. The Pt. verbalized an expectation that he will be discharged today. We recited the Lord's Prayer together and I prayed for the Pt. Both the Pt. 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
[2023-02-24] MEDS ORDERED: FEROSUL325 M1 PO (12:46)
[2023-02-24] MEDS ORDERED: GUAI600T33 PO (12:47)
[2023-02-24] MEDS ORDERED: GABA100 PO (12:47)
[2023-02-24] MEDS ORDERED: LOPE2C PO (12:47)
[2023-02-24] MEDS ORDERED: ONDA4ODT MM (12:49)
[2023-02-24] MEDS ORDERED: METO25ER PO (12:49)
--- NOTE | 2023-02-24 18:16 | NUR ---
DISCHARGE SUMMARY PT DISCHARGED TO HOME. PT LEFT ROOM PRIOR TO THIS NOTE VIA WHEELCHAIR WITH STOCK CLERK ESCORT. PT EDUCATED ON ALL DISCHARGE INSTRUCTIONS, ALL QUESTIONS ANSWERED. PT AGREES TO TAKE MEDICATIONS PRESCRIBED AND TO FOLLOW UP WITH PCP. IV DC'D AND BELONGINGS RETURNED.
== END 2023-02-24 16:43 | disposition home or self-care (01) | DRG 682 ==
LOC: ER 08:51 → MEDS 08:52 → ER 15:31 → MEDS 15:31 → ENPENDDIS 02-24 11:58 → MEDS 02-24 16:43
PROVIDERS: Student in an Organized Health Care Education/Training Program; ADMIT Family Medicine
PROC: 30233N1 Transfusion of Nonautologous Red Blood Cells into Peripheral Vein, Percutaneous Approach (ICD-10-PCS; principal; 2023-02-22)
DX: N17.9 Acute kidney failure, unspecified (principal); U07.1 COVID-19; C34.91 Malignant neoplasm of unspecified part of right bronchus or lung; C34.92 Malignant neoplasm of unspecified part of left bronchus or lung; D64.9 Anemia, unspecified; J44.9 Chronic obstructive pulmonary disease, unspecified; I25.10 Atherosclerotic heart disease of native coronary artery without angina pectoris; F03.A0 Unspecified dementia, mild, without behavioral disturbance, psychotic disturbance, mood disturbance, and anxiety; I10 Essential (primary) hypertension; K21.9 Gastro-esophageal reflux disease without esophagitis; E78.5 Hyperlipidemia, unspecified; K59.00 Constipation, unspecified; Z88.1 Allergy status to other antibiotic agents; Z88.8 Allergy status to other drugs, medicaments and biological substances; I25.2 Old myocardial infarction; Z79.899 Other long term (current) drug therapy; Z79.51 Long term (current) use of inhaled steroids; Z79.82 Long term (current) use of aspirin; Z90.49 Acquired absence of other specified parts of digestive tract; Z95.1 Presence of aortocoronary bypass graft; Z90.89 Acquired absence of other organs; Z87.891 Personal history of nicotine dependence; Z98.890 Other specified postprocedural states
CPT/HCPCS: 0241U; 36415; 71045; 80053; 82533; 83735; 84443; 85025; 86850; 86900; 86901; 86923; 93005; 93010; 94640; 94664; 94760; 96360; 96361; 96372; 97110; 97116; 97162; 97165; 97530; 99285-25; A9270; G0378; J1644; J1650; J1885; J7030; J7040; P9016

== ENCOUNTER → 2023-10-11 | Outpatient (CLI) | payer MEDICARE, BC ==
[~2023-10-11] MED LIST changes: +FEROSUL325 M1 PO; +FLUT1DIS2 INH; +GABA100 PO; +LOPE2C PO
== END | disposition home or self-care (01) ==
LOC: LAB 08:54 → LAB SHORT 08:54
DX: C34.90 Malignant neoplasm of unspecified part of unspecified bronchus or lung (principal); R94.6 Abnormal results of thyroid function studies
CPT/HCPCS: 84443

== ENCOUNTER 2023-11-13 08:49 | Emergency (ER) | payer MEDICARE, BC ==
[~2023-11-13] VITALS: Ht 175.3 cm; Wt 72.6 kg
[2023-11-13 09:27] LABS: BASOPHILS ABSOLUTE AUTO 0.01 K/mm3 (0.00-0.23); BASOPHILS PERCENT AUTO 0 % (0-2); EOSINOPHILS ABSOLUTE AUTO 0.06 K/mm3 (0.00-0.68); EOSINOPHILS PERCENT AUTO 1 % (0-6); Hematocrit 33.3 % (37.0-53.0); Hemoglobin 11.4 g/dL (13.5-17.5); IMMATURE GRAN ABSOLUTE AUTO 0.01 K/mm3 (0.00-0.10); IMMATURE GRAN PERCENT AUTO 0 % (0-1); LYMPHOCYTES ABSOLUTE AUTO 0.86 K/mm3 (0.84-5.20); LYMPHOCYTES PERCENT AUTO 18 % (21-46); MONOCYTES ABSOLUTE AUTO 0.59 K/mm3 (0.16-1.47); MONOCYTES PERCENT AUTO 12 % (4-13); Mean Corpuscular HGB 30.7 pg (26.0-34.0); Mean Corpuscular HGB Conc 34.2 g/dL (31.5-36.5); Mean Corpuscular Volume 90 fL (80-100); Mean Platelet Volume 9.6 fL (9.1-12.4); NEUTROPHILS ABSOLUTE AUTO 3.23 K/mm3 (1.96-9.15); NEUTROPHILS PERCENT AUTO 68 % (41-73); Platelet Count 163 K/mm3 (150-400); RDW Coefficient Variation 14.6 % (11.7-14.2); Red Blood Cell Count 3.71 M/mm3 (4.30-5.90); White Blood Cell Count 4.76 K/mm3 (4.00-11.30)
[2023-11-13 09:39] LABS: Albumin, Blood 3.1 g/dL (3.4-5.0); Albumin/Globulin Ratio 0.8 (0.8-1.8); Bilirubin, Total 0.5 mg/dL (0.1-1.0); Bun/Creatinine Ratio 24.8 (12.0-20.0); Calcium, Blood 8.7 mg/dL (8.5-10.1); Creatinine, Blood 1.17 mg/dL (0.60-1.20); Globulin, Blood 3.8 g/dL (2.2-4.0); Potassium, Blood 3.9 mmol/L (3.5-5.5); Total Protein, Blood 6.9 g/dL (6.4-8.2)
[2023-11-13 10:27] LABS: Influenza A, PCR NEGATIVE (NEGATIVE); Influenza B, PCR NEGATIVE (NEGATIVE); Resp Syncytial Virus, PCR NEGATIVE (NEGATIVE); SARS-Cov-2 (COVID-19) PCR, MMC NEGATIVE (NEGATIVE)
[2023-11-13] MEDS ORDERED: NS 1,000 ML IV SCH (11:25)
[2023-11-13] MEDS ORDERED: Ipratropium/Albuterol SulF 2.5-0.5MG/3 ML Amp INH ONE (11:35)
[2023-11-13] MEDS ORDERED: METPRE4DP PO (11:43)
[2023-11-13] MEDS ORDERED: PredniSONE 10 MG Tab PO ONE (11:45)
[2023-11-13 13:12] VITALS: BP 127/63
[2023-11-17] MEDS ORDERED: Ventolin5 MG/1 ML INH (10:23)
[2023-11-17] MEDS ORDERED: AMLO10 PO (10:25)
== END 2023-11-13 13:13 | disposition home or self-care (01) ==
LOC: ER 08:49
PROVIDERS: Physician Assistant
DX: J44.1 Chronic obstructive pulmonary disease with (acute) exacerbation (principal); J43.9 Emphysema, unspecified; C34.90 Malignant neoplasm of unspecified part of unspecified bronchus or lung; I25.2 Old myocardial infarction; I25.10 Atherosclerotic heart disease of native coronary artery without angina pectoris; F03.90 Unspecified dementia, unspecified severity, without behavioral disturbance, psychotic disturbance, mood disturbance, and anxiety; I10 Essential (primary) hypertension; K21.9 Gastro-esophageal reflux disease without esophagitis; E78.5 Hyperlipidemia, unspecified; Z88.8 Allergy status to other drugs, medicaments and biological substances; Z88.1 Allergy status to other antibiotic agents; Z79.899 Other long term (current) drug therapy; Z79.82 Long term (current) use of aspirin; Z87.891 Personal history of nicotine dependence
CPT/HCPCS: 0241U; 71046; 80053; 83880; 84484; 85025; 93005; 93010; 94640; 94664; 99285-25; J7030; J7512

== ENCOUNTER 2023-11-28 11:17 | Day surgery (SDC) | payer MEDICARE, BC ==
[~2023-11-28] VITALS: Ht 172.7 cm; Wt 73.0 kg
[~2023-11-28 11:17] MED LIST changes: +Lactated Ringer's 1,000 ML IV ONE; +METPRE4DP PO; +Ventolin5 MG/1 ML INH
[2023-11-28] MEDS ORDERED: ACET325 (12:18)
[2023-11-28] MEDS ORDERED: Lactated Ringer's 1,000 ML IV ONE (12:38)
[2023-11-28] MEDS ORDERED: Ipratropium Bromide INH 0.02% 0.5 mg/2.5ML Vial ONE (12:48)
[2023-11-28] MEDS ORDERED: propofoL 50 ML IV ONE (13:16)
--- NOTE | 2023-11-28 13:32 | NUR ---
11/28/23 1332 Kaushik Minor WHEEZES AND CONGESTION NOTED WITH ASCULTATION, PT HAS HX OF LUNG CANCER, IS CURRENTLY ON CHEMO AND RADIATION TX. BREATHING TREATMENT GIVEN PER ANESTHESIA ORDERS. WHEEZES WERE NOTED POST BREATHING TX, PT EXPRESSED FEELING "LESS CONGESTED". MD DUKE.
[2023-11-28 14:07] VITALS: BP 114/73
== END 2023-11-28 14:12 | disposition home or self-care (01) ==
LOC: ORSCSDS 11:17
PROVIDERS: Internal Medicine Gastroenterology
PROC: 0DBH8ZX Excision of Cecum, Via Natural or Artificial Opening Endoscopic, Diagnostic (ICD-10-PCS; principal; 2023-11-28 13:00)
PROC: 0DBM8ZX Excision of Descending Colon, Via Natural or Artificial Opening Endoscopic, Diagnostic (ICD-10-PCS; principal; 2023-11-28 13:00)
DX: Z12.11 Encounter for screening for malignant neoplasm of colon (principal); Z86.0100 Personal history of colon polyps, unspecified; D12.0 Benign neoplasm of cecum; D12.4 Benign neoplasm of descending colon; I10 Essential (primary) hypertension; J44.9 Chronic obstructive pulmonary disease, unspecified; Z85.118 Personal history of other malignant neoplasm of bronchus and lung; Z79.899 Other long term (current) drug therapy; E78.5 Hyperlipidemia, unspecified; Z87.891 Personal history of nicotine dependence; F41.9 Anxiety disorder, unspecified; Z79.82 Long term (current) use of aspirin
CPT/HCPCS: 88305; J2704; J7120

== ENCOUNTER 2024-08-06 02:22 | Day surgery (SDC) | payer MEDICARE, BC ==
[~2024-08-06 02:22] MED LIST changes: +ACET325; -Lactated Ringer's 1,000 ML IV ONE
[2024-08-06] MEDS ORDERED: Lidocaine HCl 4% Cream 5 GM ONE (08:49)
== END 2024-08-06 23:00 | disposition home or self-care (01) ==
LOC: WOUND 02:22
DX: L98.492 Non-pressure chronic ulcer of skin of other sites with fat layer exposed (principal); I12.9 Hypertensive chronic kidney disease with stage 1 through stage 4 chronic kidney disease, or unspecified chronic kidney disease; N18.31 Chronic kidney disease, stage 3a; I25.119 Atherosclerotic heart disease of native coronary artery with unspecified angina pectoris; J44.9 Chronic obstructive pulmonary disease, unspecified; C34.90 Malignant neoplasm of unspecified part of unspecified bronchus or lung; I25.2 Old myocardial infarction; Z95.1 Presence of aortocoronary bypass graft
CPT/HCPCS: A9270

== ENCOUNTER 2024-08-13 04:05 | Day surgery (SDC) | payer MEDICARE, BC ==
[2024-08-13] MEDS ORDERED: Lidocaine HCl 4% Topical Soln 5 MLUDC ONE (08:18)
== END 2024-08-13 22:00 | disposition home or self-care (01) ==
LOC: WOUND 04:05
DX: L98.492 Non-pressure chronic ulcer of skin of other sites with fat layer exposed (principal); I12.9 Hypertensive chronic kidney disease with stage 1 through stage 4 chronic kidney disease, or unspecified chronic kidney disease; N18.31 Chronic kidney disease, stage 3a; I25.119 Atherosclerotic heart disease of native coronary artery with unspecified angina pectoris; J44.9 Chronic obstructive pulmonary disease, unspecified; C34.90 Malignant neoplasm of unspecified part of unspecified bronchus or lung; Z95.1 Presence of aortocoronary bypass graft
CPT/HCPCS: A9270

== ENCOUNTER 2024-08-20 00:38 | Day surgery (SDC) | payer MEDICARE, BC ==
[2024-08-20] MEDS ORDERED: Lidocaine HCl 4% Cream 5 GM ONE (08:11)
== END 2024-08-20 23:00 | disposition home or self-care (01) ==
LOC: WOUND 00:38
DX: L98.492 Non-pressure chronic ulcer of skin of other sites with fat layer exposed (principal); I12.9 Hypertensive chronic kidney disease with stage 1 through stage 4 chronic kidney disease, or unspecified chronic kidney disease; N18.31 Chronic kidney disease, stage 3a; I25.119 Atherosclerotic heart disease of native coronary artery with unspecified angina pectoris; J44.9 Chronic obstructive pulmonary disease, unspecified; C34.90 Malignant neoplasm of unspecified part of unspecified bronchus or lung
CPT/HCPCS: A9270

== ENCOUNTER 2024-08-27 00:38 | Day surgery (SDC) | payer MEDICARE, BC ==
[2024-08-27] MEDS ORDERED: Lidocaine HCl 4% Cream 5 GM ONE (08:44)
== END 2024-08-27 22:49 | disposition home or self-care (01) ==
LOC: WOUND 00:38
DX: L98.492 Non-pressure chronic ulcer of skin of other sites with fat layer exposed (principal); I12.9 Hypertensive chronic kidney disease with stage 1 through stage 4 chronic kidney disease, or unspecified chronic kidney disease; N18.31 Chronic kidney disease, stage 3a; I25.119 Atherosclerotic heart disease of native coronary artery with unspecified angina pectoris; J44.9 Chronic obstructive pulmonary disease, unspecified; C34.90 Malignant neoplasm of unspecified part of unspecified bronchus or lung
CPT/HCPCS: A9270

== ENCOUNTER 2024-09-03 01:07 | Day surgery (SDC) | payer MEDICARE, BC ==
[2024-09-03] MEDS ORDERED: Lidocaine HCl 4% Cream 5 GM ONE (12:39)
== END 2024-09-03 23:00 | disposition home or self-care (01) ==
LOC: WOUND 01:07
DX: L98.492 Non-pressure chronic ulcer of skin of other sites with fat layer exposed (principal); I12.9 Hypertensive chronic kidney disease with stage 1 through stage 4 chronic kidney disease, or unspecified chronic kidney disease; N18.31 Chronic kidney disease, stage 3a; I25.119 Atherosclerotic heart disease of native coronary artery with unspecified angina pectoris; J44.9 Chronic obstructive pulmonary disease, unspecified; C34.90 Malignant neoplasm of unspecified part of unspecified bronchus or lung
CPT/HCPCS: A9270

== ENCOUNTER → 2024-09-10 | Day surgery (SDC) | payer MEDICARE, BC | END | disposition home or self-care (01) | LOC: WOUND | DX: L98.492 Non-pressure chronic ulcer of skin of other sites with fat layer exposed (principal); I12.9 Hypertensive chronic kidney disease with stage 1 through stage 4 chronic kidney disease, or unspecified chronic kidney disease; N18.31 Chronic kidney disease, stage 3a; I25.119 Atherosclerotic heart disease of native coronary artery with unspecified angina pectoris; J44.9 Chronic obstructive pulmonary disease, unspecified; C34.90 Malignant neoplasm of unspecified part of unspecified bronchus or lung | CPT/HCPCS: G0463 ==

== ENCOUNTER 2024-09-24 00:56 | Day surgery (SDC) | payer MEDICARE, BC ==
[2024-09-24] MEDS ORDERED: Lidocaine HCl 4% Cream 5 GM ONE (09:48)
== END 2024-09-24 23:00 | disposition home or self-care (01) ==
LOC: WOUND 00:56
DX: L98.492 Non-pressure chronic ulcer of skin of other sites with fat layer exposed (principal); I12.9 Hypertensive chronic kidney disease with stage 1 through stage 4 chronic kidney disease, or unspecified chronic kidney disease; N18.31 Chronic kidney disease, stage 3a; I25.119 Atherosclerotic heart disease of native coronary artery with unspecified angina pectoris; J44.9 Chronic obstructive pulmonary disease, unspecified; C34.90 Malignant neoplasm of unspecified part of unspecified bronchus or lung
CPT/HCPCS: A9270

== ENCOUNTER 2024-10-14 01:33 | Day surgery (SDC) | payer MEDICARE, BC | END 2024-10-14 23:00 | disposition home or self-care (01) | LOC: WOUND 01:33 | DX: Z87.2 Personal history of diseases of the skin and subcutaneous tissue (principal); I12.9 Hypertensive chronic kidney disease with stage 1 through stage 4 chronic kidney disease, or unspecified chronic kidney disease; N18.31 Chronic kidney disease, stage 3a; I25.119 Atherosclerotic heart disease of native coronary artery with unspecified angina pectoris; I48.91 Unspecified atrial fibrillation; J44.9 Chronic obstructive pulmonary disease, unspecified; E78.5 Hyperlipidemia, unspecified; Z95.1 Presence of aortocoronary bypass graft; Z99.81 Dependence on supplemental oxygen | CPT/HCPCS: G0463 ==